=== PATIENT | male | born 1935 | race Caucasian/White ===

== ENCOUNTER 2016-07-18 19:09 | Emergency (ER) | payer MEDICARE, OTHER ==
[2015-02-11 07:43] VITALS: BMI 26.6
[~2016-07-18 19:09] MED LIST: ASPIRIN EC81 M1 PO; CARDURA4 MG PO; CATAPRES0.1 MG PO; COZAAR50 MG PO; HYDRALAZINE HCL25 MG PO; LANTUS INSULIN10 ML SC; LONITEN2.5 MG PO; METOLAZONE2.5 MG PO; NORVASC10 MG PO; NOVOLOG100 U/M1 SC; OCUVITE TABLET1 TA1 PO; SYNTHROID50 MCG PO; TRICOR145 MG PO; TUMS500 MG PO
[2016-07-18 20:38] LABS: BASOPHILS 0.1 % (0.0-2.0); HEMOGLOBIN 10.4 g/dL (13.5-17.5); IMMATURE GRANULOCYTES 0.2 % (0-5); LYMPHOCYTES 4.5 % (15-50); MCH 25.4 pg (26.0-34.0); MCHC 30.6 g/dL (31.0-37.0); MCV 83.1 fL (80.0-100.0); MEAN PLATELET VOLUME 9.5 fL (7.4-10.4); MONOCYTES 10.6 % (2-11); NEUTROPHILS 83.6 % (40-80); PLATELET COUNT 281 10x3/uL (130-400); RBC 4.09 10x6/uL (4.20-6.10); RDW 17.1 % (11.5-14.5); WBC 9.8 10x3/uL (4.8-10.8)
[2016-07-18 21:06] LABS: ALBUMIN 2.4 g/dL (3.4-5.0); ANION GAP 15.9 mmol/L (8-16); BILIRUBIN - TOTAL 1.19 mg/dL (0.2-1.3); CALCIUM 8.3 mg/dL (8.5-10.1); CARBON DIOXIDE 23.7 mmol/L (21.0-32.0); CREATININE - SERUM 5.2 mg/dL (0.6-1.3); POTASSIUM - SERUM 3.6 mmol/L (3.5-5.1)
== END 2016-07-18 21:40 | disposition home or self-care (01) ==
LOC: D.ER 19:09
PROVIDERS: Nurse Practitioner Acute Care
DX: K52.9 Noninfective gastroenteritis and colitis, unspecified (principal); I12.0 Hypertensive chronic kidney disease with stage 5 chronic kidney disease or end stage renal disease; N18.5 Chronic kidney disease, stage 5; I25.10 Atherosclerotic heart disease of native coronary artery without angina pectoris; I45.10 Unspecified right bundle-branch block

== ENCOUNTER 2016-07-28 02:01 | Emergency (ER) | payer MEDICARE ==
[2015-02-11 07:43] VITALS: BMI 26.6
== END 2016-07-28 03:59 | disposition home or self-care (01) ==
LOC: D.ER 02:01
DX: S80.12XA Contusion of left lower leg, initial encounter (principal); X58.XXXA Exposure to other specified factors, initial encounter; Y93.89 Activity, other specified; Y92.89 Other specified places as the place of occurrence of the external cause; N40.0 Benign prostatic hyperplasia without lower urinary tract symptoms; I25.10 Atherosclerotic heart disease of native coronary artery without angina pectoris; E78.5 Hyperlipidemia, unspecified; E03.9 Hypothyroidism, unspecified; I12.0 Hypertensive chronic kidney disease with stage 5 chronic kidney disease or end stage renal disease; N18.5 Chronic kidney disease, stage 5

== ENCOUNTER 2016-07-31 08:08 | Outpatient (CLI) | payer MEDICARE ==
[~2016-07-31] VITALS: Ht 172.7 cm; Wt 79.2 kg
--- NOTE | ~2016-07-31 | HEMODYNAMI ---
PATIENT:DEVAUGHN LLAMAS MEDICAL RECORD: [id number] : 33 LOCATION:[facility] ADMISSION DATE: 07/31/16 Generatedon:07/31/201610:57 Patient name: DEVAUGHN LLAMAS Patient #: [id number] SSN: [id number] : 1935 Date of study: 07/31/2016 Page: Of Hemodynamic Procedure Report Patient Data Patient Demographics Procedure consent was obtained First Name: DEVAUGHN Gender: Male Last Name: MURIEL : 1935 [facility] Initial: R Age: 80 year(s) Patient #: [id number] Race: SSN: [id number] Additional ID: [id number] Contact details Address: [address] [place] [address] [address] State: [place] City: [place] Zip code: [address] Admission Admission Data Admission Date: 07/31/2016 Admission Time: 8:08 Arrival Date: 07/31/2016 Arrival Time: 0:00 Admit Source: Other Height (in.): 60 BSA: 1.71 (m2) Height (cm.): 152.4 BMI: 31.64 (kg/m2) Weight (lbs.): 162 Weight (kg.): 73.48 Lab Results Lab Result Date: 07/31/2016 Lab Result Time: 0:00 Biochemistry Name Units Result Min Max BUN mg/dl 76 --(----)-* 7 18 Creatinine mg/dl 5.5 --(----)-* 0.6 1.3 CBC Name Units Result Min Max Hemoglobin g/dl 12.9 -*(----)-- 13.5 17.5 Procedure Procedure Types Cath Procedure Diagnostic Procedure C [facility] w/Coronaries PCI Procedure Coronary Stent Initial Miscellaneous Procedures Moderate Sedation up to 15 minutes Procedure Description Procedure Date Procedure Date: 07/31/2016 Procedure Start Time: 10:36 Procedure End Time: 10:57 Procedure Staff Name Function Golden Dunn MD Performing Physician Tiffany Rodriguez RT Scrub January Beck RT Monitor Va Astorga RN Nurse Procedure Data Cath Procedure Fluoroscopy Diagnostic fluoroscopy Total fluoroscopy Time: 4.1 time: 4.1 min min Diagnostic fluoroscopy Total fluoroscopy dose: 279 dose: 279 mGy mGy Contrast Material Contrast Material Type Amount (ml) Isovue 300 61 Entry Location Entry Primary Successful Side Size Upsize Upsize Entry Closure Succes sful Closure Location (Fr) 1 (Fr) 2 (Fr) Remarks Device Remarks Femoral Right 5 Fr 6 Fr Vascade artery Short Closure System Estimated blood loss: 10 ml Diagnostic catheters Device Type Used For End Catheter Placement Cordis 5Fr Pigtail Procedure Catheter (MP) Cordis 5Fr JL 4.0 Procedure Catheter (MP) Cordis 5Fr 3DRC Catheter Coronary (MP) Angiography Procedure Complications No complications Procedure Medications Medication Administration Route Dosage Oxygen NC 2 l/min Heparin Flush Bag added to field 2 bags (1000units/500ml NS) Lidocaine 2% added to field 20 Fentanyl I.V. 25 mcg Versed I.V. 0.5 mg Fentanyl I.V. 25 mcg Versed I.V. 0.5 mg Integrilin (Bolus I.V. 6.2 ml 2mg/ml) Heparin Bolus I.V. 4000 units Fentanyl I.V. 25 mcg Versed I.V. 0.5 mg Plavix P.O. 600 mg Hemodynamics Rest BSA: 1.71 (m2) HGB: 12.9 (g/dl) O2 Consumption: Estimated: 196.26 (ml/min) O2 Co nsumption indexed: Estimated:114.77 (ml/min/m) Heart Rate: 72 (bpm) Snapshots Pre Cath Intra NCS Post Cath Vital Signs Time Heart Resp SPO2 NIBP (mmHg) Rhythm Pain Sedation Rate (ipm) (%) Status Level (bpm) 10:19:45 73 18 100 193/87(153) NSR 0 (11) 10(A) , No pain 10:24:21 72 16 100 195/84(147) NSR 0 (11) 10(A) , No pain 10:28:49 76 16 100 184/89(148) NSR 0 (11) 9(A) , No pain 10:33:16 78 20 100 183/90(147) NSR 0 (11) 9(A) , No pain 10:37:44 78 18 100 188/90(140) NSR 0 (11) 9(A) , No pain 10:42:12 77 16 100 181/87(138) NSR 0 (11) 9(A) , No pain 10:46:41 78 16 100 189/88(147) NSR 0 (11) 9(A) , No pain 10:51:03 86 17 100 165/83(132) NSR 0 (11) 9(A) , No pain Medications Time Medication Route Dose Verified Delivered Reason Notes Effectiveness by by 10:20:04 Oxygen NC 2 Va Va used for l/min Astorga Astorga milk hauler RN 10:20:11 Heparin Flush added 2 Va Va used for Bag to bags Astorga Astorga procedure (1000units/500ml field RN RN NS) 10:20:20 Lidocaine 2% added 20ml Va Va used for to vial Astorga Astorga procedure field RN RN 10:25:05 Fentanyl I.V. 25 Va Va for sedation mcg Astorga Astorga RN RN 10:25:10 Versed I.V. 0.5 Va Va for sedation mg Astorga Astorga RN RN 10:36:50 Fentanyl I.V. 25 Va Va for sedation mcg Astorga Astorga RN RN 10:36:53 Versed I.V. 0.5 Va Va for sedation mg Astorga Astorga RN RN 10:46:03 Integrilin I.V. 6.2 Va Va for wasted (Bolus 2mg/ml) ml Astorga Astorga anticoagulation 3.8ml of RN RN integrilin bolus 10:46:13 Heparin Bolus I.V. 4000 Va Va for units Astorga Astorga anticoagulation RN RN 10:46:44 Fentanyl I.V. 25 Va Va for sedation mcg Astorga Astorga RN RN 10:46:47 Versed I.V. 0.5 Va Va for sedation mg Astorga Astorga RN RN 10:48:32 Plavix P.O. 600 Va Va for mg Astorga Astorga antiplatelet RN RN therapy Procedure Log Time Note 9:35:56 Tiffany Rodriguez RT(R) sent for patient. Start room use. 9:47:25 Informed consent obtained and on chart 9:47:28 Diagnostic Cath Status : Elective 9:48:02 Time tracking: Regular hours 9:48:06 Plan of Care:Hemodynamics will remain stable., Cardiac rhythm will remain stable., Comfort level will be maintained., Respiratory function will remain adequate., Patient/ family verbilizes understanding of procedure., Procedure tolerated without complication., Recovers from procedure without complications.. 9:50:17 Lab Result : Hemoglobin 12.9 g/dl 9:50:17 Lab Result : Creatinine 5.5 mg/dl 9:50:17 Lab Result : BUN 76 mg/dl 9:52:19 Patient received from Outpatients to [facility] 3 Alert and oriented. Tansferred to table in Supine position. 9:52:51 H&P Date Dictated: 07/24/2016 Within 30 days and on chart., H&P Addendum completed by physician on day of procedure. (MUST COMPLETE FOR ALL OUTPATIENTS). 9:52:53 Pre-procedure instructions explained to patient. 9:52:56 Family in waiting room. 9:52:58 Patient NPO since Midnight. 9:53:06 Is the patient allergic to Iodine/contrast media? No. 9:53:11 Patient diabetic? Yes. 9:53:12 If diabetic: On Metformin? No 9:54:45 Admit Source: Other 9:55:02 Patient Height : 152.4 inches 9:55:32 Patient Weight : 73.48 lbs 9:56:21 Arrival Date: 07/31/2016 12:00:00 AM 10:13:19 Warm blankets applied, and kranthi hugger turned on for patient comfort. 10:13:38 ACC The patient was administered the following blood thiners within the last 24 hours: ACCAspirin 10:13:45 Snore? Yes 10:13:46 Sleep apnea? Yes 10:13:50 Deviated septum? No 10:13:58 Dentures? Yes tight 10:14:06 IV patent on arrival in right hand with 0.9% NaCl at KVO. 10:14:12 Lab results completed and on chart. 10:14:15 Right groin area was prepped with chlora-prep and draped in sterile fashion 10:14:20 Sharps counted by scrub and verified by R.N. 10:14:32 ECG and BP/O2 sat monitors applied to patient. 10:18:26 Vital chart was started 10:18:27 Baseline sample Acquired. 10:18:32 Rhythm: sinus rhythm 10:18:34 Full Disclosure recording started 10:20:04 Oxygen 2 l/min NC was given by Va Astorga RN; used for procedure; 10:20:11 Heparin Flush Bag (1000units/500ml NS) 2 bags added to field was given by Va Astorga RN; used for procedure; 10:20:20 Lidocaine 2% 20ml vial added to field was given by Va Astorga RN; used for procedure; 10:20:29 Use device set Radial Dx 10:20:31 Acist Syringe opened to sterile field. 10:20:31 Medline Cath Pack opened to sterile field. 10:20:32 Bag Decanter opened to sterile field. 10:21:09 St Sy 260cm J .035 wire opened to sterile field. 10:21:10 Acist Hand Control opened to sterile field. 10:21:11 Acist Manifold opened to sterile field. 10:21:12 Tegaderm 4 x 4 opened to sterile field. 10:21:20 Use device set Multipack Set 10:21:22 Diagnostic Infinity 5Fr Multipack catheter opened to sterile field. 10:21:28 Terumo 5Fr [place] Sheath opened to sterile field. 10:21:54 Physician paged 10:22:08 Physician arrived 10::09 --------ALL STOP TIME OUT------ 10:22:10 Final Timeout: patient, procedure, and site verified with staff and physician. All members of the team are in agreement. 10:22:12 Right groin site verified by team. 10:22:16 Physical assessment completed. ASA score P 2 - A patient with mild systemic disease as per Golden Dunn MD. 10:22:20 Sedation plan: IV Moderate Sedation Versed, Fentanyl 10:25:05 Fentanyl 25 mcg I.V. was given by Va Astorga RN; for sedation; 10:25:10 Versed 0.5 mg I.V. was given by Va Astorga RN; for sedation; 10:29:32 Zero performed for pressure channel P1 10:29:41 Zero performed for pressure channel P1 10::58 Zero performed for pressure channel P1 10:34:52 Procedure started. 10:36:18 Local anesthetic to right femoral artery with Lidocaine 2% by Golden Dunn MD.INITIAL ACCESS ONLY 10:36:50 Fentanyl 25 mcg I.V. was given by Va Astorga RN; for sedation; 10:36:53 Versed 0.5 mg I.V. was given by Va Astorga RN; for sedation; 10:36:59 A 5 Fr sheath was inserted into the Right Femoral artery 10:39:08 A Cordis 5Fr Pigtail Catheter (MP) was advanced over the wire and used for Procedure. 10:39:38 no LV cant cross valve 10:39:49 A Cordis 5Fr JL 4.0 Catheter (MP) was advanced over the wire and used for Procedure. 10:39:58 LCA angiography performed. 10:41:01 Catheter removed. 10:41:31 A Cordis 5Fr 3DRC Catheter (MP) was advanced over the wire and used for Coronary Angiography. 10:41:36 RCA angiography performed. 10:43:31 Catheter removed. 10:46:03 Integrilin (Bolus 2mg/ml) 6.2 ml I.V. was given by Va Astorga RN; for anticoagulation; wasted 3.8ml of integrilin bolus 10:46:13 Heparin Bolus 4000 units I.V. was given by Va Astorga RN; for anticoagulation; 10:46:14 Medtronic Launcher 6Fr AR 2.0 guide catheter opened to sterile field. 10:46:15 Merit BasixCompak Inflation Kit opened to sterile field. 10:46:15 Terumo 6Fr [place] Sheath opened to sterile field. 10:46:30 Sheath upsized to a 6 Fr Short. 10:46:42 6 Fr AR2 guide catheter was inserted over the wire 10:46:44 Fentanyl 25 mcg I.V. was given by Va Astorga RN; for sedation; 10:46:47 Versed 0.5 mg I.V. was given by Va Astorga RN; for sedation; 10:46:48 Whis[er wire advanced. 10:47:34 Inflation Number: 1 A Medtronic Integrity 3.5 X 15 stent was prepped and advanced across the Mid RCA. The stent was deployed at 13 KIRAN for 0:10 (min:sec). 10:48:27 Vascade 6/7 Fr Closure Device opened to sterile field. 10:48:32 Plavix 600 mg P.O. was given by Va Astorga RN; for antiplatelet therapy; 10:49:33 Wire removed. 10:49:33 Guide catheter removed. 10:49:47 Sheath removed intact; hemostasis achieved with Vascade Closure System to the Right Femoral artery. 10:49:49 Procedure ended.(Physican Out) 10:50:21 Fluoroscopy time 04.10 minutes. 10:50:26 Fluoroscopy dose: 279 mGy 10:50:26 Flurop Dose total: 279 10:50:31 Contrast amount:Isovue 300 61ml. 10:50:34 Sharps counted by scrub and verified by R.N. 10:50:40 Insertion/operative site no bleeding no hematoma. 10:50:42 Post Procedure Pulses reassessed and unchanged 10:50:45 Post procedure rhythm: unchanged. 10:50:48 Estimated blood loss: 10 ml 10:50:51 Post procedure instruction explained to patient.Patient verbalizes understanding. 10:51:32 Procedure type changed to Cath procedure, Diagnostic procedure, LHC, LHC w/Coronaries, PCI procedure, Coronary Stent Initial, Miscellaneous Procedures, Moderate Sedation up to 15 minutes 10:51:34 Procedure and supply charges have been captured, reviewed, submitted and are correct. 10:51:39 Procedure Complication : No complications 10:51:43 Vital chart was stopped 10:51:45 See physician's report for complete and final results. 10:57:00 Patient transfered to Outpatients with Stretcher. 10:57:02 Procedure ended. 10:57:02 Full Disclosure recording stopped 10:57:05 End room use (Document Last) 10:57:23 ACC-PCI Only Patient was given prescriptions, or instructed by Golden Dunn MD to start/continue the following medications upon discharge: Plavix Intervention Summary Intervention Notes Time ActionType Lesion and Equipment Action# Pressure Duration Attributes Used 10:47:34 Place stent Mid RCA Medtronic 1 13 00:10 Integrity 3.5 X 15 stent Device Usage Item Name Manufacture Quantity Catalog Hospital Part Current Minima l Lot# / Number Charge Number Stock Stock Serial# Code Acist Acist 1 00935 569679 182364 429506 20 [employer] Inc Medline Cardinal 1 [id number] 919653 39996 114239 5 Cath Pack Health Bag Microtek 1 2001S 155712 54894 531919 [address] Sy 1 683624 241381 424640 648698 30 260cm J .035 wire Acist Hand Acist 1 60578 233098 304364 590245 5 Control Medical Systems Inc Acist Acist 1 95247 410993 889024 929340 5 Manifold Medical Systems Inc Tegaderm 4 3M 1 1626W 047709 851088 736751 5 x 4 Diagnostic Cardinal 1 [id number] 900415 29118 884387 30 Infinity Health 5Fr Multipack catheter Terumo 5Fr Terumo 1 JSW141 430150 960326 423373 40 [place] Sheath Cordis 5Fr Cardinal 1 620776 5 Pigtail Health Catheter (MP) Cordis 5Fr Cardinal 1 364658 5 JL 4.0 Health Catheter (MP) Cordis 5Fr Cardinal 1 836528 5 3DRC Health Catheter (MP) Medtronic Medtronic 1 [id number] 154423 85855 538665 1 Launcher 6Fr AR 2.0 guide catheter Merit Merit 1 [id number] 548727 675120 540667 15 Pixoto, Inc. Medical Inflation Kit Terumo 6Fr Terumo 1 NCR348 279075 306487 677497 40 [place] Sheath Medtronic Medtronic 1 [id number] 594677 113923 658983 7 [id number] Integrity 3.5 X 15 stent Vascade 10/31 Cardiva 1 [id number] 469863 997541 097302 5 Fr Closure Medical, Device Inc. Signature Audit Terry Stage Time Signature Unsigned Intra-Procedure 07/31/2016 January Beck 10:57:54 AM RT(R) Signatures Monitor : January Beck Signature : RT Date : Time : [facility] [address] [place] [address]
[2016-07-31 08:44] VITALS: BP 188/80; BMI 24.3
[2016-07-31 09:22] LABS: BASOPHILS 0.2 % (0.0-2.0); EOSINOPHILS 1.4 % (0-7); HEMATOCRIT 41.8 % (42.0-54.0); HEMOGLOBIN 12.9 g/dL (13.5-17.5); IMMATURE GRANULOCYTES 0.4 % (0-5); LYMPHOCYTES 5.1 % (15-50); MCHC 30.9 g/dL (31.0-37.0); MEAN PLATELET VOLUME 9.9 fL (7.4-10.4); MONOCYTES 9.7 % (2-11); NEUTROPHILS 83.2 % (40-80); PLATELET COUNT 237 10x3/uL (130-400); RBC 5.16 10x6/uL (4.20-6.10); RDW 18.5 % (11.5-14.5); WBC 5.7 10x3/uL (4.8-10.8)
[2016-07-31 09:31] LABS: ANION GAP 19.2 mmol/L (8-16); CALCIUM 8.4 mg/dL (8.5-10.1); CARBON DIOXIDE 20.1 mmol/L (21.0-32.0); CREATININE - SERUM 5.5 mg/dL (0.6-1.3); POTASSIUM - SERUM 4.3 mmol/L (3.5-5.1)
[2016-07-31] MEDS ORDERED: PLAVIX75 MG PO (11:15)
--- NOTE | 2016-07-31 11:30 | NUR ---
1130 BP 83/38 HR 48 WITH C/O OF NAUSEA 4 MG ZOFRAN GIVEN IV IV FLUIDS OPEN 1200 BP 84/40 HR 66 FEMSTOP TO R/GROIN REMAINS IN PLACE WITH HEMATOMA MARKED.
--- NOTE | 2016-07-31 12:19 | NUR ---
BP 142/60 HR 71 CHEST PAIN DENIED NAUSEA DENIED. PRESSURE RELEASED FROM FEMSTOP WITH NO BLEEDING NOTED.
--- NOTE | 2016-07-31 13:00 | NUR ---
1300 R/GROIN CDI WITH HEMATOMA MARKED. VSS WITH CHEST PAIN DENIED. PATIENT INSTRUCTED TO KEEP HEAD FLAT ON PILLOW WITH RLE STRAIGHT 1330 VSS WITH PATIENT RESTING QUIETLY NO DISTRESS NOTED. FAMILY AT SIDE
--- NOTE | 2016-07-31 14:30 | NUR ---
1430 NO CHANGE IN ASSESSMENT VSS
--- NOTE | 2016-07-31 15:23 | NUR ---
FEMSTOP REMOVED WITH DRESSING APPLIED. NO BLEEDING NO HEMATOMA NOTED CHEST PAIN IS DENIED. REPOSITIONED TO SITTING WITH HOB UP 45 DEGREES SANDWICH AT BEDSIDE. WAITING FOR TRANSPORT TO ADMIT
--- NOTE | 2016-07-31 15:30 | NUR ---
RECEIVED PT FROM MIXING SUPERVISOR VIA STRETCHER AAOX4 IN STABLE CONDITION RT GROIN WITH DRSG C/D/I WITH RESOLVING HEMATOMA NO BRUISING NOTED AREA MARKED NOTED RESOLVING PT DENIES ANY NEEDS OR DISCOMFORT
--- NOTE | 2016-07-31 15:42 | NUR ---
REPORT CALLED TO [place] ON MED 2 PATIENT TRANSPORTED VIA STRETCHER TO ROOM 2047
[2016-07-31 18:03] VITALS: BP 159/59; Ht 172.7 cm; Wt 79.2 kg
--- NOTE | 2016-07-31 19:15 | NUR ---
INITIAL ROUNDS MADE. PT LYING IN BED WATCHING TV WITH FAMILY IN ROOM. RIGHT GROIN STABLE. VSS. DENIES NEEDS OR C/O AT THIS TIME. WILL CONT TO MONITOR. CALL LIGHT IN REACH.
[2016-07-31 20:00] VITALS: BP 189/72
--- NOTE | 2016-07-31 23:28 | NUR ---
BODY WORKER AT BEDSIDE FOR VS. NEEDS ADDRESSED AT THIS TIME. CALL LIGHT IN REACH. WILL CONT TO MONITOR.
[2016-08-01] VITALS: BP 142/64
[2016-08-01 04:00] VITALS: BP 170/66
--- NOTE | 2016-08-01 06:39 | NUR ---
SITTING UP IN BED DRINKING COFFEE. DENIES NEEDS. CONT TO MONITOR.
[2016-08-01 08:05] VITALS: BP 176/74
--- NOTE | 2016-08-01 09:16 | NUR ---
TELEMETRY SR. RIGHT GROIN STABLE. AT BS. WILL CONT. PLAN OF CARE.
--- NOTE | 2016-08-01 10:13 | NUR ---
IV AND TELEMETRY DCD. DC PLANS GIVEN. UNDERSTANDING VOICED. ESCORTED TO CAR BY W/C.
--- NOTE | 2016-08-06 10:08 | DS ---
PATIENT:DEVAUGHN LLAMAS :[birth year] MEDICAL RECORD: [id number] DISCHARGE SUMMARY ADMISSION DATE: 07/31/16 DISCHARGE DATE: 08/01/16 DISCHARGE DIAGNOSES: 1. Angina. 2. Percutaneous transluminal coronary angioplasty stent right coronary artery this admission. 3. Hypertension. 4. Hyperlipidemia. 5. Renal insufficiency, chronic. HOSPITAL COURSE: Mr. Llamas presented with anginal symptomatology, underwent cardiac catheterization revealing single vessel disease to the RCA. He had no further anginal symptomatology; however, he had a minor groin bleed. He stayed overnight because of the groin bleed and groin would stabilize next morning, hemoglobin was stable. Creatinine was stable and discharged home with the addition of Plavix to his medical regimen. He will follow up with [facility] in 1 month. TRANSINT:[id number] Voice Confirmation ID: [id number] DOCUMENT ID: [id number] RENE FREIRE MD at 1008 CC: [id number] DICTATION DATE: 08/01/16937 HR MANAGER: 08/02/16 0009 DEP CLI 08/01/16 [place] [id number] [place] [address]
--- NOTE | 2016-08-06 10:08 | OP ---
PATIENT NAME: DEVAUGHN LLAMAS MEDICAL RECORD: [id number] :33 LOCATION:D.CAT ADMISSION DATE: SURGEON: RENE FREIRE MD DATE OF OPERATION: 07/31/2016 PROCEDURES: 1. PTCA stent RCA. 2. Left heart catheterization. 3. Selective coronary angiography. 4. Left ventriculogram. INDICATION: Angina and coronary artery disease. PROCEDURE: After informed consent was obtained and after detailed explanation of risks, benefits as well as alternative therapies, the patient elected to proceed with angiogram and ____ angioplasty. The right femoral area was prepped and draped in normal sterile fashion. Right femoral artery was cannulated via modified Seldinger technique with placement of 6-Nigerien sheath. All catheters exchanged through this sheath. FINDINGS: Left ventriculogram was not performed secondary to dye conservation. SELECTIVE CORONARY ANGIOGRAPHY: 1. Left main showed no significant angiographic disease. 2. Left anterior descending has moderate irregularities, but no flow-limiting stenosis. 3. The left circumflex shows moderate irregularities, but no flow-limiting stenosis. 4. Right coronary has a 70% to 75% stenosis in the mid vessel, which correlates with the perfusion defect on nuclear stress testing. PTCA STENT OF THE RIGHT CORONARY: The stent used was 3.5 x 15 mm Integrity. Result was 0% residual stenosis. OVERALL IMPRESSION: Successful percutaneous transluminal coronary angioplasty stent of the right coronary artery going from 75% initial stenosis to 0% residual. TRANSINT:[id number] Voice Confirmation ID: [id number] DOCUMENT ID: [id number] RENE FREIRE MD at 1008 CC: CAROL ACEVEDO MD [id number] DICTATION DATE: 07/31/16 1052 COMPANION CAREGIVER: 07/31/16 1246 DEP CLI 08/01/16 [place] [id number]
== END 2016-08-01 10:14 | disposition home or self-care (01) ==
LOC: D.CATH 08:08 → D.M2 16:15 → D.CATH 08-01 10:14
PROVIDERS: Internal Medicine Interventional Cardiology
DX: I25.119 Atherosclerotic heart disease of native coronary artery with unspecified angina pectoris (principal); I12.9 Hypertensive chronic kidney disease with stage 1 through stage 4 chronic kidney disease, or unspecified chronic kidney disease; N18.9 Chronic kidney disease, unspecified; E78.5 Hyperlipidemia, unspecified

== ENCOUNTER → 2016-08-03 12:50 | Outpatient (CLI) | payer MEDICARE ==
[2016-07-31 18:03] VITALS: BMI 31.2
[~2016-08-03 12:50] MED LIST changes: +NYSTATIN ORAL SU5 ML PO; +PLAVIX75 MG PO; +ROCEPHIN 1 GM/D51 G1 IV
== END | disposition home or self-care (01) ==
LOC: D.US 12:50
DX: M79.601 Pain in right arm (principal); R60.0 Localized edema

== ENCOUNTER 2016-08-10 17:07 | Inpatient (IN) | payer MEDICARE ==
[~2016-08-10] VITALS: Ht 172.7 cm; Wt 72.6 kg
[~2016-08-10 17:07] MED LIST changes: -NYSTATIN ORAL SU5 ML PO; -ROCEPHIN 1 GM/D51 G1 IV
[2016-08-10 17:50] LABS: APPEARANCE CLEAR (CLEAR); BILIRUBIN NEGATIVE (NEGATIVE); COLOR YELLOW (YELLOW); GLUCOSE NEGATIVE (NEGATIVE); KETONE NEGATIVE (NEGATIVE); LEUKOCYTE ESTERASE TRACE (NEGATIVE); NITRITE NEGATIVE (NEGATIVE); PROTEIN 2+ mg/dL (NEGATIVE); SPECIFIC GRAVITY 1.015 (1.005-1.020); UROBILINOGEN NORMAL (NORMAL)
[2016-08-10 17:52] LABS: BACTERIA FEW /hpf (NONE SEEN); EPITHELIAL CELLS 0-5 /hpf (0-5); WHITE CELLS - URINE 0-5 /hpf (0-5)
[2016-08-10 17:58] LABS: BASOPHILS 0.2 % (0.0-2.0); EOSINOPHILS 0.5 % (0-7); HEMATOCRIT 31.9 % (42.0-54.0); HEMOGLOBIN 9.7 g/dL (13.5-17.5); IMMATURE GRANULOCYTES 0.3 % (0-5); LYMPHOCYTES 4.2 % (15-50); MCH 23.9 pg (26.0-34.0); MCHC 30.4 g/dL (31.0-37.0); MCV 78.6 fL (80.0-100.0); MEAN PLATELET VOLUME 10.1 fL (7.4-10.4); MONOCYTES 10.3 % (2-11); NEUTROPHILS 84.5 % (40-80); RBC 4.06 10x6/uL (4.20-6.10); RDW 18.8 % (11.5-14.5); WBC 11.1 10x3/uL (4.8-10.8)
[2016-08-10 18:00] LABS: PLATELET COUNT 333 10x3/uL (130-400)
[2016-08-10 18:11] LABS: ALBUMIN 2.5 g/dL (3.4-5.0); ALKALINE PHOSPHATASE 81 U/L (46-116); ALT (SGPT) 27 U/L (10-68); BILIRUBIN - TOTAL 2.01 mg/dL (0.2-1.3); CALC OSMOLALITY 296 mosm/kg (275-300); CALCIUM 8.2 mg/dL (8.5-10.1); CARBON DIOXIDE 20.3 mmol/L (21.0-32.0); CHLORIDE - SERUM 104 mmol/L (98-107); CREATININE - SERUM 5.4 mg/dL (0.6-1.3); GLUCOSE 90 mg/dL (74-106); PROTEIN - SERUM 7.7 g/dL (6.4-8.2); SODIUM 139 mmol/L (136-145); UREA NITROGEN 67 mg/dL (7-18); eGFR NON AFRICAN AMERICAN 11 mL/min (90-120)
[2016-08-10 18:13] LABS: POTASSIUM - SERUM 4.6 mmol/L (3.5-5.1)
[2016-08-10 18:26] LABS: CREATINE KINASE 88 UL (21-232); TROPONIN-I 0.032 ng/mL (0.000-0.060)
[2016-08-10 18:36] LABS: APTT 35.7 SECONDS (22.8-39.4); INR 1.21 (0.85-1.17); PROTIME 15.2 SECONDS (11.6-15.0)
[2016-08-11] VITALS (7 sets, daily range): BP systolic 154–182; BP diastolic 65–85; Ht 172.7 cm; Wt 72.6 kg
[2016-08-11 06:27] LABS: BASOPHILS 0.1 % (0.0-2.0); EOSINOPHILS 0.1 % (0-7); HEMATOCRIT 25.7 % (42.0-54.0); IMMATURE GRANULOCYTES 0.3 % (0-5); LYMPHOCYTES 6.4 % (15-50); MCH 23.7 pg (26.0-34.0); MCHC 29.6 g/dL (31.0-37.0); MCV 80.1 fL (80.0-100.0); MEAN PLATELET VOLUME 9.8 fL (7.4-10.4); MONOCYTES 7.5 % (2-11); NEUTROPHILS 85.6 % (40-80); RDW 18.7 % (11.5-14.5); WBC 9.6 10x3/uL (4.8-10.8)
[2016-08-11 06:31] LABS: HEMOGLOBIN 7.6 g/dL (13.5-17.5); PLATELET COUNT 264 10x3/uL (130-400); RBC 3.21 10x6/uL (4.20-6.10)
[2016-08-11 06:58] LABS: ALBUMIN 1.9 g/dL (3.4-5.0); CALCIUM 7.4 mg/dL (8.5-10.1); CARBON DIOXIDE 16.7 mmol/L (21.0-32.0); CREATININE - SERUM 5.4 mg/dL (0.6-1.3); MAGNESIUM - SERUM 1.8 mg/dL (1.8-2.4); PHOSPHOROUS 5.1 mg/dL (2.5-4.9)
[2016-08-11 06:59] LABS: ANION GAP 19.1 mmol/L (8-16); POTASSIUM - SERUM 3.8 mmol/L (3.5-5.1); PROTEIN - SERUM 5.5 g/dL (6.4-8.2)
--- NOTE | 2016-08-11 07:00 | NUR ---
RECEIVED REPORT. ASSUMED CARE OF PATIENT. CALL LIGHT WITHIN REACH. PATIENTS SPOUSE AT BEDSIDE. WHILE AT BEDSIDE, DR. FRYE HERE FOR AM ROUNDS. INFORMED OF PATIENTS H&H. PATIENT DENIES ANY NEEDS AT THIS TIME. NO DISTRESS. RESP EVEN AND UNLABORED.
--- NOTE | 2016-08-11 08:10 | NUR ---
BLOOD CONSENTS SIGNED AND ON CHART.
--- NOTE | 2016-08-11 11:01 | NUR ---
BLOOD TRANSFUSION INITIATED. TOLERATING RECEIVING BLOOD WELL. NO DISTRESS.
--- NOTE | 2016-08-11 14:44 | NUR ---
BLOOD TRANSFUSION COMPLETE AT THIS TIME. TOLERATED INFUSION WELL. NO S/S REACTIONS NOTED. ULTRASOUND IS NOW AT BEDSIDE FOR GALLBLADDER ULTRASOUND. CALL LIGHT WITHIN REACH. IV FLUIDS INFUSING ORDERED.
--- NOTE | 2016-08-11 17:19 | NUR ---
FSBS 214. PATIENTS INSULIN PUMP IS OFF AND PATIENT DOES NOT HAVE A SLIDING SCALE ORDERED, PAGED AT THIS TIME FOR ORDERS.
--- NOTE | 2016-08-11 17:43 | NUR ---
RECEIVED RETURN CALL FROM DR. FRYE AND DR. FRYE GAVE ORDERS TO TURN THE INSULIN PUMP BACK ON. PATIENT AND HIS ACKNOWLEDGED THE NEW ORDERS AND HOOKED INSULIN PUMP BACK UP TO PATIENT.
--- NOTE | 2016-08-11 19:30 | NUR ---
ASSESSMENT COMPLETE, UP WITH ASSIST, TIANA WELL. QLERT AND ORIENTED X3, O2 @ 2L NC IN PLACE, NS INFUSING W/O DIFF VIA PUMP AT 75CC/HR TO RT FA WITH NO R/S NOTED AT SITE.FAMILY MEMBER/SITTER AT BEDSIDE FOR NIGHT. HOB UP SR UP X2, C/L IN REACH. CONTINUE TO MONITOR.
[2016-08-12 00:37] VITALS: BP 140/62
[2016-08-12 04:23] VITALS: BP 141/59
[2016-08-12 05:08] LABS: BASOPHILS 0.2 % (0.0-2.0); EOSINOPHILS 1.1 % (0-7); HEMATOCRIT 29.6 % (42.0-54.0); IMMATURE GRANULOCYTES 0.5 % (0-5); LYMPHOCYTES 6.3 % (15-50); MCH 25.5 pg (26.0-34.0); MCHC 31.4 g/dL (31.0-37.0); MCV 81.1 fL (80.0-100.0); MEAN PLATELET VOLUME 9.7 fL (7.4-10.4); NEUTROPHILS 86.9 % (40-80); PLATELET COUNT 244 10x3/uL (130-400); RBC 3.65 10x6/uL (4.20-6.10); RDW 18.9 % (11.5-14.5)
[2016-08-12 05:26] LABS: HEMOGLOBIN 9.3 g/dL (13.5-17.5); WBC 6.6 10x3/uL (4.8-10.8)
[2016-08-12 05:52] LABS: ALBUMIN 1.8 g/dL (3.4-5.0); ANION GAP 17.3 mmol/L (8-16); BILIRUBIN - DIRECT 0.73 mg/dL (0.00-0.30); BILIRUBIN - INDIRECT 0.43 mg/dL (0.00-1.00); BILIRUBIN - TOTAL 1.16 mg/dL (0.2-1.3); CALCIUM 7.4 mg/dL (8.5-10.1); CARBON DIOXIDE 18.3 mmol/L (21.0-32.0); CREATININE - SERUM 5.4 mg/dL (0.6-1.3); PHOSPHOROUS 4.5 mg/dL (2.5-4.9); POTASSIUM - SERUM 3.6 mmol/L (3.5-5.1)
--- NOTE | 2016-08-12 07:00 | NUR ---
RECEIVED REPORT. ASSUMED CARE OF PATIENT. PATIENT WITH EYES OPEN, ATTENTION TOWARD TELEVISION THIS AM. MALE VISITOR AT BEDSIDE. CALL LIGHT WITHIN REACH. DENIES NEEDS. STATED HE SLEPT WELL. NO DISTRESS.
[2016-08-12 09:00] VITALS: BP 148/67
--- NOTE | 2016-08-12 11:32 | NUR ---
FSBS 171. PATIENT HAS INSULIN PUMP ADMINISTERING INSULIN. NO DISTRESS. CALL LIGHT WITHIN REACH.
[2016-08-12 16:00] VITALS: BP 123/63
--- NOTE | 2016-08-12 16:00 | NUR ---
FSBS 177. PATIENT HAS INSULIN PUMP. NO DISTRESS. CALL LIGHT WITHIN REACH.
--- NOTE | 2016-08-12 17:30 | NUR ---
ASSISTED IN PULLING PATIENT UP IN BED. CALL LIGHT WITHIN REACH. AND NEPHEW AT BEDSIDE. NO DISTRESS. DENIES NEEDS AT THIS TIME.
--- NOTE | 2016-08-12 19:30 | NUR ---
AWAKE, ALERT, LYING SUPINE IN BED WITH HOB UP SR UP X2, C/L IN REACH. TV ON, VOICES NO C/O PAIN OR DISCOMFORT AT THIS TIME. CONTINUE TO MONITOR.
[2016-08-12 20:00] VITALS: BP 147/73
[2016-08-13 04:00] VITALS: BP 132/59
[2016-08-13 05:44] LABS: BASOPHILS 0.2 % (0.0-2.0); EOSINOPHILS 2.2 % (0-7); HEMATOCRIT 28.8 % (42.0-54.0); IMMATURE GRANULOCYTES 0.5 % (0-5); LYMPHOCYTES 5.2 % (15-50); MCH 25.1 pg (26.0-34.0); MCHC 31.3 g/dL (31.0-37.0); MCV 80.2 fL (80.0-100.0); MEAN PLATELET VOLUME 10.2 fL (7.4-10.4); MONOCYTES 7.1 % (2-11); NEUTROPHILS 84.8 % (40-80); PLATELET COUNT 262 10x3/uL (130-400); RBC 3.59 10x6/uL (4.20-6.10); RDW 19.2 % (11.5-14.5); WBC 6.4 10x3/uL (4.8-10.8)
[2016-08-13 06:12] LABS: CALCIUM 7.6 mg/dL (8.5-10.1); CARBON DIOXIDE 17.5 mmol/L (21.0-32.0); CREATININE - SERUM 5.5 mg/dL (0.6-1.3); MAGNESIUM - SERUM 1.8 mg/dL (1.8-2.4); PHOSPHOROUS 4.4 mg/dL (2.5-4.9); POTASSIUM - SERUM 3.5 mmol/L (3.5-5.1)
[2016-08-13 08:00] VITALS: BP 147/69
--- NOTE | 2016-08-13 08:00 | NUR ---
AM ROUNDING WITH PATIENT DENYING NEEDS AT PRESENT TIME. MALE MEMBER IS AT BEDSIDE. ON ROOM AIR AT PRESENT TIME. RIGHT WRIST SEEN WITH NS INFUSING AT 30CC/HR WITHOUT PROBLEMS. LEFT AVF SEEN ALONG WITH DRY INTACT DRESSING TO LEFT OUT FOREARM. PATIENT REPORTS THAT HE HAS AN INSULIN PUMP. WILL CONTINUE TO MONITOR.
--- NOTE | 2016-08-13 10:06 | NUR ---
RATIONALE FOR SCD'S EXPLAINED. REFUSED SCD'S.
--- NOTE | 2016-08-13 10:28 | NUR ---
Rehab Note- Acute Rehab Prescreen order received. The patient has [facility] benefits and requires a PreAuth for acute rehab. Have spoken with Varsha at [facility], reference #[id number]. Awaiting approval for IRF stay at this time. Thank you for this referral! Марина Kenyon RN Clinical Liaison, [facility]
--- NOTE | 2016-08-13 11:09 | NUR ---
1105-FSBS IS 178. PATIENT HAS AN INSULIN PUMP AND HE IS CONCERED THAT IT NEEDS TO BE REFILLED AND HE IS STILL IN HOSPTIAL. ASKED THAT HE TURN THE PUMP OFF AND LET US COVER WITH HIS BLOOD SUGARS. HE IS ON NO SLIDING SCALE AT THIS TIME. CALL PLACED TO DR FRYE FOR ORDERS. 1112-SPOKE WITH MOON AT DR FRYE. NEW ORDERS RECEIVED.
[2016-08-13 12:00] VITALS: BP 147/60
--- NOTE | 2016-08-13 13:57 | HP ---
PATIENT: DEVAUGHN LLAMAS MEDICAL RECORD: [id number] ACCOUNT: [id number] LOCATION:[address] : 34 ADMISSION DATE: 08/10/16 HISTORY AND PHYSICAL EXAMINATION REASON FOR ADMISSION: Fever and malaise. HISTORY OF PRESENT ILLNESS: The patient is an 80-year-old male with history of stage V renal insufficiency. The patient had a cardiac cath and a stent placed approximately a week ago at this institution. He felt tired since that time. He presented to my office yesterday because of complaint of bilateral ear pain. While in the office, he became syncopal and fainted. He was observed in the office, stat blood sugar was 79. His insulin pump was suspended, he was observed for an hour and a half. The patient deferred admission at that time improved and went home. He had previous syncopal episodes like this multiple times in the past and yet has been undiagnosed. He developed onset of chills and fever late last night. He presented to the Emergency Room with 103 fever. He has now been admitted for further evaluation. Initial evaluation in the ED, was consistent with a viral syndrome. Cultures have been obtained. Denies cough, still has some bilateral ear discomfort that is minimal. Denies sore throat, diarrhea or melena. PAST MEDICAL HISTORY: Stage V chronic renal insufficiency, followed by Dr. Roa, volatile essential hypertension, diabetes mellitus on insulin pump, hypothyroidism, adverse reaction to general anesthesia with hypertension, osteoarthritis, hyperlipidemia, cholelithiasis, diverticulitis with former lower GI bleed, PTCA of the RCA 07/31/2016 with Integrity stent, postoperative hematoma in his right groin. PAST SURGICAL HISTORY: He has had fistula placed in his left arm. He has had left elbow surgery, cataract excision in the right eye, arthroscopy of his knee, cataract surgery on his left eye. FAMILY HISTORY: Parents are , had hypertension. SOCIAL HISTORY: He is . His lives independently. ALLERGIES: PENICILLIN. HOME MEDICATIONS: Plavix 75 mg daily, Apresoline 25 mg p.o. b.i.d., Norvasc 10 mg p.o. daily, Catapres 0.1 mg p.o. daily, minoxidil 2.5 mg p.o. b.i.d., Cozaar 50 mg p.o. b.i.d., Cardura 4 mg p.o. at h.s., TriCor 145 mg p.o. daily, aspirin 81 mg p.o. daily, hydrocodone 1 q.4 hours p.r.n. pain, Zaroxolyn 2.5 mg p.o. b.i.d., calcium carbonate ____ mg p.o. q.i.d., Synthroid 50 mcg p.o. daily, beta-carotene, Ocuvite vitamin 1 p.o. q. day, NovoLog insulin per insulin pump. REVIEW OF SYSTEMS: GENERAL: Fatigue with fever as mentioned. HEENT: No recent visual change, sinus congestion, or sore throat. He has had some discomfort in his upper neck, but no pharyngitis symptoms. RESPIRATORY: No SOB or cough. CARDIAC: No recent chest pain, edema or palpitations. GASTROINTESTINAL: No nausea, vomiting, change in stools or blood per rectum or melena. ENDOCRINE: Denies polyuria, polydipsia, heat or cold intolerance. HISTORY AND PHYSICAL [id number] DEVAUGHN LLAMAS NEUROLOGIC: No history of stroke, TIA, or vascular headaches. INTEGUMENT: No rash or itching. PSYCHIATRIC: Denies depress mood. MUSCULOSKELETAL: Chronic lumbago without sciatica. PHYSICAL EXAMINATION: VITAL SIGNS: Temperature is 100.3. Reportedly, 103 at home, heart rate 89 and regular, respirations 20, blood pressure 140/65 with a sat 99% on room air. GENERAL: The patient appears mildly ill. HEENT: Eyes are clear. Oropharynx unremarkable. NECK: Supple. Ears is clear. Throat: No erythema. CHEST: Clear without rales. HEART: Regular rate without MGR. PMI appropriate. ABDOMEN: Soft, nontender throughout. Bowel sounds are active. GENITOURINARY: He has fading superficial hematoma and ecchymosis in the right groin extending medial to the knee. There is no heat appreciated here. No bruit. No peripheral edema. NEUROLOGIC: Oriented to person, place, and time. Cranial nerves intact. Gait was not tested, but normal in the office yesterday. LABORATORY DATA: His influenza swab is negative. His white count is 11,000 with 84 polys. H&H is 9.7 and 31.9 with MCV of 78.6, BUN and creatinine are 67 and 5.4. His baseline potassium is 4.6, glucose is 90, calcium is 8.2. Bilirubin is 2.01. AST is 87. Urinalysis shows trace blood, 5-10 red cells, 0-5 white cells, few bacteria. INR is 1.21, PT time is 7.5. DIAGNOSTIC DATA: CT head showed no acute findings except for mild generalized atrophy. Chest x-ray showed no acute cardiopulmonary disease. ASSESSMENT: 1. Febrile illness, possibly viral, there has mild leukocytosis. 2. Recent percutaneous transluminal coronary angioplasty of the RCA with groin hematoma. 3. Anemia, possibly due to hematoma and chronic renal insufficiency. 4. Stage V chronic renal insufficiency. 5. Hypertension. 6. Near syncope, [id number]. 7. Known cholelithiasis, asymptomatic, benign prostatic hypertrophy, hyperlipidemia. PLAN: The patient is admitted and will be ____, we will hold antibiotics at this time unless the signs of bacterial infection are noted. We will transfuse, appropriately renal consult will be obtained. We will repeat gallbladder ultrasound, ____ mildly elevated, bilirubin to rule out acute cholecystitis. TRANSINT:[id number] Voice Confirmation ID: [id number] DOCUMENT ID: [id number] HISTORY AND PHYSICAL [id number] DEVAUGHN LLAMAS TIMOTHY MD at 1357 CC: [id number] DICTATION DATE: 08/11/16811 GRANULATOR OPERATOR: 08/11/16 1033 ADM IN [place] [id number] [place] [address]
--- NOTE | 2016-08-13 15:49 | NUR ---
1537-SODIUM BICARB TABLET GIVEN, PATIENT EATING REDUCED FAT ICE CREAM. AT BEDSIDE. AWAITING REHAB EVAL.
[2016-08-13 16:00] VITALS: BP 138/57
[2016-08-13 21:40] VITALS: BP 167/77
[2016-08-14 02:00] VITALS: BP 119/53
--- NOTE | 2016-08-14 03:03 | NUR ---
ACCORDING TO AMADA ELDRIDGE, PT DROPPED HIS URINAL AND HIT HIS ARM ON THE BED SIDE RAIL, CAUSING A SKIN TEAR TO HIS LEFT ARM JUST BELOW HIS ELBOW. 4X4 PLACED. CONTINUE TO MONITOR CLOSELY. CAREGIVER IN CHAIR.
--- NOTE | 2016-08-14 06:43 | NUR ---
PT AWAKE, ALERT, ORIENTED THIS AM. DENIES ANY NEEDS. CONTINUE TO MONITOR.
[2016-08-14 08:19] VITALS: BP 167/84
--- NOTE | 2016-08-14 08:51 | NUR ---
0732-AM ROUNDS. PT IS ALERT AND SITTING UP WITH THE HEAD OF THE BED AT A 45. IS AT THE BEDSIDE. PATIENT COMPLAINS OF A SORE THROAT AND 5-6 PAIN WHEN HE SWALLOWS. FINDINGS DOCUMENTED IN ASSESSMENT. WILL CONTINUE TO MONITOR. 0805-DR FRYE NOTIFIED ABOUT PATIENT'S SORE THROAT AND WHITE PATCHES IN MOUTH.
[2016-08-14 12:05] VITALS: BP 178/89
--- NOTE | 2016-08-14 13:15 | NUR ---
Nutrition follow-p: Visited with pt during meal rounds. Pt is happy with meals. Diet: ADA consistent CHO PO intake ~70% average of last 7 meals Labs reviewed +BM RDN following.
[2016-08-14 16:04] VITALS: BP 140/66
--- NOTE | 2016-08-14 16:10 | NUR ---
Rehab Note- OT Eval completed. Faxed at this time to May with [facility] @ [phone]. Awaiting PreAuth decision at this time for acute IRF stay. Марина Kenyon RN Clinical Liaison, [facility] Rehab/[place]
--- NOTE | 2016-08-14 16:12 | NUR ---
Patient Name: DEVAUGHN LLAMAS Admission Status: ER Accout number: [id number] Admission Date: 08-13-2016 : 1935 Admission Diagnosis: Attending: MARCY Current LOS: 1 Anticipated DC Date: Planned Disposition: Inpatient Rehab [facility] Discharge Planning Comments: * Is the patient Alert and Oriented? Yes 0 * How many steps to enter\exit or inside your home? NONE 0 * PCP DR. FRYE 0 * Pharmacy [facility] 0 * Preadmission Environment Home with Family 0 * ADLs Independent 0 * Equipment Cane CPAP Glucometer Rolling Walker 0 * Other Equipment NO MEDICAL EQUIPMENT PROVIDER PREFERENCE 0 * List name and contact numbers for known caregivers / representatives who currently or will assist patient after discharge: EMILIE LLAMAS, SPOUSE, 0 * Community resources currently utilized None 0 * Please name any agencies selected above. NONE 0 * Additional services required to return to the preadmission environment? Yes * Can the patient safely return to the preadmission environment? Yes 0 * Has this patient been hospitalized within the prior 30 days at any hospital? Yes 0 CM MET WITH PT AND SPOUSE IN ROOM TO DISCUSS DISCHARGE PLANNING AND NEEDS. PT REPORTS LIVING AT HOME INDEPENDENTLY WITH SPOUSE. PT REPORTS HAVING ALL NEEDED MEDICAL EQUIPMENT WITH NO PROVIDER PREFERENCE. PT HAS NO OUTSIDE SERVICES ASSISTING IN THE HOME. PT'S SPOUSE REPORTS HAVING [facility] POLICY FOR PT AND IS LOOKING INTO PERSONAL CARE OPTIONS. CM PROVIDED AGENCY LISTING FOR PERSONAL CARE. CM DISCUSSED AVAILABILITY OF HOME HEALTH, REHAB SERVICES AND MEDICAL EQUIPMENT. PT WOULD LIKE INPATIENT REHAB AT [place]. PT DOES NOT WANT TO CONSIDER RESIDENTIAL REHAB. CM PROVIDED HOME HEALTH LISTING. PT'S SPOUSE WILL PICK HIM UP FOR DISCHARGE HOME. IMPORTANT MESSAGE FROM MEDICARE PROVIDED AND EXPLAINED. CM WAITING INPATIENT REHAB PRESCREEN AND IF APPROPRIATE, INSURANCE AUTHORIZATION OR DENIAL FOR INPATIENT REHAB SERVICES. Web Services Architect: Maik Hung
--- NOTE | 2016-08-14 19:23 | NUR ---
HIRED FENCE SUPERVISOR AT BEDSIDE PER . PATIENT IS USING AN ELECTRIC SHAVER TO SHAVE HIMSELF. IV INFUSING TO RIGHT WRIST AREA (RESERVE LEFT ARM). DENIES ANY NEEDS AT PRESENT TIME. WILL COTNINUE TO MONITOR.
[2016-08-14 20:00] VITALS: BP 167/73
--- NOTE | 2016-08-14 21:30 | NUR ---
LYING IN BED RESTING WITH HOB ELEVATED 30 DEGREES. HS MEDS GIVEN PO WITHOUT DIFFICULTY. SEE ASSESSMENT FLOW SHEET FOR DETAILS. DENIES ANY NEEDS. WILL CONTINUE TO MONITOR.
[2016-08-15 04:00] VITALS: BP 207/66
--- NOTE | 2016-08-15 05:19 | NUR ---
AFTER GOING TO BATHROOM, COMMODE HAD A SMALL AMOUNT(TABLESPOON AMOUNT) OF BRIGHT RED BLOOD IN COMMODE. PATIENT SAID HE HAD A GI BLEED A MONTH AGO.
--- NOTE | 2016-08-15 07:22 | NUR ---
PT RESTING COMFORTABLY. NO SS OF DISTRESS AT THIS TIME. WILL CONTINUE TO MONITOR.
--- NOTE | 2016-08-15 08:04 | NUR ---
DR FRYE INTO SEE PATIENT. PATIENT ALERT/ORIENT X3. PATIENT HAS A SITTER IN ROOM WITH HIM. GLUCOSE LEVEL 172. PATIENT HAS JUST GOTTEN OFF INSULIN PUMP. REFUSING SLIDING SCALE INSULIN AT THIS TIME. REPORTED SOME BLOOD IN STOOL THIS AM. H AND H LAB ORDERED
[2016-08-15 08:21] VITALS: BP 137/56
--- NOTE | 2016-08-15 11:45 | NUR ---
Rehab Note- Recieved phone call from Jennie Ley with [facility] & stated had denied an IRF stay for the patient but had approved a lower level of care stay, SNF stay, for the patient. A peer to peer can be done with in the next 24hrs for the denial. And the family can proceed with the appeals process after a decision on the peer to peer occurs. Jennie Ley with [facility] phone #[phone], fax#[phone]. Appeals process #[phone] & fax #[phone]. Spoke with MEGAN Garcia & she is going to notify and also the family. Марина Kenyon RN Clnical Liaison, [facility] Rehab/[place]
--- NOTE | 2016-08-15 11:54 | NUR ---
Rehab Note- spoke with MEGAN Garcia. is willing at this current time to do peer to peer with Dr. Burroughs with [facility]. MEGAN Garcia notified Jennie Ley with [facility] that is going to arrange the peer to peer at this time. Will continue to follow at this time. Марина Kenyon RN Clinical Liaison, [facility] Rehab/[place]
--- NOTE | 2016-08-15 12:27 | NUR ---
GLUCOSE LEVEL 211. FOUR UNITS OF SLIDING SCALE INSUIN GIVEN
[2016-08-15 12:36] VITALS: BP 167/71
--- NOTE | 2016-08-15 15:08 | NUR ---
IN ROOM. ANXIOUS IN REGARD TO WHEN LAB WILL BE HERE TO DRAW BLOOD. THIS NURSE CALLED DOWN TO LAB. LAB STATED THAT THEY WILL BE UP TO DRAW BLOOD.
[2016-08-15 15:35] VITALS: BP 147/63
[2016-08-15 15:36] LABS: HEMATOCRIT 29.9 % (42.0-54.0); HEMOGLOBIN 9.2 g/dL (13.5-17.5); MCH 24.9 pg (26.0-34.0); MCHC 30.8 g/dL (31.0-37.0); MEAN PLATELET VOLUME 10.1 fL (7.4-10.4); RBC 3.69 10x6/uL (4.20-6.10); RDW 19.6 % (11.5-14.5); WBC 6.7 10x3/uL (4.8-10.8)
--- NOTE | 2016-08-15 16:06 | NUR ---
Rehab Note- Spole with Coral & Dr. Robison, stated that he spoke with Dr. Burroughs with [facility] & they still denied the patient an IRF stay. Met with the patient & patient's & provided them with the [facility] Appeals phone # [phone]. The patient's states that she will be appealing. Spoke with MEGAN Benton to inform him of this & that I had provided them with the [facility] Appeals phone number. Марина Kenyon RN Clinical Liaison, [facility] Rehab/[place]
--- NOTE | 2016-08-15 16:13 | NUR ---
Rehab Note- Spoke with Jennie at [facility] & she has closed the case where that the family can proceed with the appeals process since he was denied IRF stay after peer to peer with with [facility] & Dr. Robison. Марина Kenyon RN Clinical Liaison, [facility] Rehab/[place]
--- NOTE | 2016-08-15 16:34 | NUR ---
GLUCOSE LEVEL 145. NO SLIDING SCALE INSULIN GIVEN
--- NOTE | 2016-08-15 17:34 | NUR ---
REMAINS WITH PATIENT IN ROOM. PATIENT SITTING UP IN BED AND EATTING SUPPER. VOICES NO NEEDS
--- NOTE | 2016-08-15 19:30 | NUR ---
RESUMED CARE OF PT, IV-LFA-NS@ 30, AT BED SIDE, BED IS LOW, SRX2,DENIES ANY NEEDS, CALL LIGHT IN REACH, WILL CONTINUE TO MONITOR
--- NOTE | 2016-08-15 19:56 | NUR ---
ANSWER CALL LIGHT HELP ASSIST TO RESTROOM, TOLD TO PULL LIGHT WHEN DONE
[2016-08-15 20:00] VITALS: BP 162/70
[2016-08-16] VITALS: BP 148/61
[2016-08-16 05:18] LABS: BASOPHILS 0.2 % (0.0-2.0); EOSINOPHILS 3.7 % (0-7); HEMATOCRIT 28.8 % (42.0-54.0); HEMOGLOBIN 8.8 g/dL (13.5-17.5); IMMATURE GRANULOCYTES 0.5 % (0-5); LYMPHOCYTES 8.1 % (15-50); MCH 25.1 pg (26.0-34.0); MCHC 30.6 g/dL (31.0-37.0); MCV 82.1 fL (80.0-100.0); MEAN PLATELET VOLUME 10.4 fL (7.4-10.4); MONOCYTES 6.9 % (2-11); NEUTROPHILS 80.6 % (40-80); PLATELET COUNT 285 10x3/uL (130-400); RBC 3.51 10x6/uL (4.20-6.10); RDW 19.7 % (11.5-14.5); WBC 5.7 10x3/uL (4.8-10.8)
[2016-08-16 05:34] LABS: ANION GAP 16.8 mmol/L (8-16); CALCIUM 7.8 mg/dL (8.5-10.1); CARBON DIOXIDE 20.9 mmol/L (21.0-32.0); CREATININE - SERUM 5.4 mg/dL (0.6-1.3); POTASSIUM - SERUM 3.7 mmol/L (3.5-5.1)
--- NOTE | 2016-08-16 06:15 | NUR ---
PT VISITING WITH , DENIES ANY NEEDS
[2016-08-16 06:28] VITALS: BP 149/62
--- NOTE | 2016-08-16 07:00 | NUR ---
PT. WAS RECEIVED IN BED AWAKE AND ORIENTED X 3 AT THE BEGINNING OF THIS SHIFT. RT. FOREARM IV WITH NS GOING AT 30ML'S/HR. AT BEDSIDE. PT REQUIRES ASSIST WHEN HE GETS OUT OF BED AND TO THE BATHROOM. WILL BE MONITORING HIM THROUGHOUT THIS SHIFT AND ASSISTING PRN WITH ADL'S. NO SIGNS OF ANY DISCOMFORT OR DISTRESS SEEN.
[2016-08-16 08:00] VITALS: BP 141/62
[2016-08-16 09:11] LABS: % SATURATION 17 % (15-55); IRON 35 ug/dl (35-150); TOTAL IRON BIND CAPACITY 204 ug/dl (260-445); UNSAT IRON BIND CAPACITY 169 ug/dl (150-375)
[2016-08-16 09:47] LABS: THYROID STIMULATING HORMONE 5.92 uIU/mL (0.36-3.74)
--- NOTE | 2016-08-16 10:26 | NUR ---
Nutrition follow-up: diet: ADA consistent CHO PO Intake ~50-75% of meals Pt very tired today; pt reports no appetite. Labs reviewed; noted pt may be starting dialysis soon +BM Wt: 160# Will continue to provide food choices and honor food preferences within diet restrictions. RDN following.
[2016-08-16 11:46] VITALS: BP 155/68
[2016-08-16 16:00] VITALS: BP 147/60
--- NOTE | 2016-08-16 16:11 | NUR ---
Rehab Note- Spoke with the patient & the patient's on paying private pay for [facility] IRF stay. Had spoken with [facility] MEDICARE INSURANCE SPECIALIST and approved the patient to pay private pay. Will follow up with the family and case management when plan of discharge. Марина Kenyon RN Clinical Liaison, [facility] Rehab/[place]
[2016-08-16 17:12] LABS: AEROBE ID Final report (()); RESULT 1 Aerococcus urinae (())
--- NOTE | 2016-08-16 17:39 | NUR ---
PT HAS HAD AN UNEVENTFUL SHIFT TODAY. HAS BEEN WITH HIM ALL DAY. OTHER COMPANY HAS COME AND GONE TO. BLOOD SUGAR LEVELS HAVE BEEN MONITORED ORDERED.
[2016-08-16 20:00] VITALS: BP 139/65
--- NOTE | 2016-08-16 20:05 | NUR ---
RESUMED CARE OF PT, RESERVED L ARM, NON-WORKING AVF, FAMILY AT BEDSIDE, IV-RFA-NS @30, BED IS LOW, SRX2, CALL LIGHT IN REACH WILL CONTINUE TO MONITOR
--- NOTE | 2016-08-17 02:17 | NUR ---
LYING IN BED, CALL LIGHT IN REACH. WILL CONTINUE WITH PLAN OF CARE.
[2016-08-17 04:00] VITALS: BP 148/66
[2016-08-17 05:28] LABS: BASOPHILS 0.2 % (0.0-2.0); EOSINOPHILS 3.8 % (0-7); HEMOGLOBIN 7.9 g/dL (13.5-17.5); IMMATURE GRANULOCYTES 0.6 % (0-5); LYMPHOCYTES 7.1 % (15-50); MCHC 30.4 g/dL (31.0-37.0); MCV 82.3 fL (80.0-100.0); MONOCYTES 6.6 % (2-11); NEUTROPHILS 81.7 % (40-80); PLATELET COUNT 258 10x3/uL (130-400); RBC 3.16 10x6/uL (4.20-6.10); RDW 19.9 % (11.5-14.5); WBC 6.5 10x3/uL (4.8-10.8)
[2016-08-17 05:58] LABS: ANION GAP 16.5 mmol/L (8-16); CALCIUM 7.7 mg/dL (8.5-10.1); CARBON DIOXIDE 20.4 mmol/L (21.0-32.0); CREATININE - SERUM 5.6 mg/dL (0.6-1.3); POTASSIUM - SERUM 3.9 mmol/L (3.5-5.1)
--- NOTE | 2016-08-17 07:36 | NUR ---
PT IS RESTING IN BED WITH EYES OPEN. ALERT AND ORIENTED X 3. DENIES ACUTE PAIN OR DISCOMFORT. STATES: "IM JUST WAITING ON KAYLENE TO COME AROUND TO SEE ME. SHE PUT ME ON THESE ANTIBIOTICS, AND I JUST WANT TO SEE WHAT IS GOING ON." IV INFUSING TO RFA WITHOUT DIFFICULTY. NO REDNESS OR EDEMA NOTED AT THE INSERTION SITE. 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 SR'S ARE UP X 2 IN BED. CALL LIGHT AND BEDSIDE TABLE ARE WITHIN EASY REACH.
[2016-08-17 09:17] LABS: FOLATE (FOLIC ACID) - SERUM 3.6 ng/mL (>3.0)
[2016-08-17 09:30] VITALS: BP 139/64
--- NOTE | 2016-08-17 09:49 | NUR ---
RESTS WITH EYES CLOSED. AT BS. CALL LIGHT IN REACH. WILL MONITOR NEEDS.
--- NOTE | 2016-08-17 11:12 | NUR ---
Patient Name: DEVAUGHN LLAMAS Encounter No: [id number] : 1935 Primary Insurance: [facility] Anticipated DC Date: Planned Disposition: Inpatient Rehab External Planned Provider: [facility] INPATIENT REH[facility] DCP follow-up note: CM SPOKE TO KAYLENE OF INPATIENT REHAB, THEY PLAN TO ACCEPT PT TODAY FOR REHAB. PT AND SPOUSE NOTIFIED, IN AGREEMENT WITH DISCHARGE TO INPATIENT REHAB. PT'S SPOUSE WILL PRIVATE PAY REHAB SERVICES. IMPORTANT MESSAGE FROM MEDICARE PROVIDED AND DISCUSSED. CM NOTIFIED DR. FRYE'S NURSE IN CLINIC. FOR DISCHARGE, NOTIFY [facility] INPATIENT REHAB. [facility] INPATIENT REHAB TO CONTACT MED 2 NURSE WITH ROOM NUMBER WHEN READY TO ACCEPT PT AND NURSE REPORT. Maik Hung, CASE MANAGEMENT
[2016-08-17] MEDS ORDERED: NYSTATIN ORAL SU5 ML PO (11:36)
[2016-08-17] MEDS ORDERED: PLAVIX75 MG PO (11:37)
--- NOTE | 2016-08-17 11:53 | NUR ---
PT IS RESTING IN BED ANXIOUS TO EAT LUNCH. NO ACUTE DISTRESS NOTED. SPOUSE IS AT BEDSIDE.
[2016-08-17 12:00] VITALS: BP 138/59
[2016-08-17] MEDS ORDERED: ROCEPHIN 1 GM/D51 G1 IV (12:17)
--- NOTE | 2016-08-17 14:44 | NUR ---
PT RESTING IN BED WITH EYES OPEN. NOTED WITH 4+ WEEPING EDEMA TO RIGHT ELBOW. ARM ELEVATED UP ON 2 PILLOWS AT THIS TIME.
--- NOTE | 2016-08-17 16:50 | NUR ---
PT DC'D TO REHAB, ROOM 1115 AT THIS TIME. ALL BELONGINGS TAKEN WITH PT.
== END 2016-08-17 17:53 | DRG 690 ==
LOC: D.ER 17:07 → OBSVTIME 22:01 → D.M2 22:01
PROVIDERS: Emergency Medicine; Internal Medicine Nephrology; Physician Assistant Medical; Surgery; ADMIT Family Medicine
DX: N39.0 Urinary tract infection, site not specified (principal); I12.0 Hypertensive chronic kidney disease with stage 5 chronic kidney disease or end stage renal disease; N18.5 Chronic kidney disease, stage 5; B37.0 Candidal stomatitis; E87.2 Acidosis; E11.22 Type 2 diabetes mellitus with diabetic chronic kidney disease; Z79.4 Long term (current) use of insulin; E03.9 Hypothyroidism, unspecified; E78.5 Hyperlipidemia, unspecified; D63.1 Anemia in chronic kidney disease; I25.10 Atherosclerotic heart disease of native coronary artery without angina pectoris; R62.7 Adult failure to thrive; N40.0 Benign prostatic hyperplasia without lower urinary tract symptoms

== ENCOUNTER 2016-08-17 14:56 | Inpatient (IN) | payer OTHER ==
[~2016-08-17] VITALS: Ht 172.7 cm; Wt 72.6 kg
[~2016-08-17 14:56] MED LIST changes: +NYSTATIN ORAL SU5 ML PO; +ROCEPHIN 1 GM/D51 G1 IV
[2016-08-17 17:49] VITALS: BP 160/92; BMI 24.3
--- NOTE | 2016-08-17 18:49 | NUR ---
ADMIT FROM MED 2. ADELAE HAS X2 SMALL SKIN REARS. BUTTOCKS IS RED AND PURPLE IN SOME AREAS MOSTLY AROUND CRACK. BRUISING NOTED TO INSIDE RT GROIN. RUE HAS EDEMA TO AREA ABOVE ELBOW AND IS ACTIVELY LEAKING. PINK PAD AND PILLOW PLACED UNDER ARM. IS WITH PT IN HIS ROOM
--- NOTE | 2016-08-17 19:30 | NUR ---
SPOUSE PRESENT, PATIENT AND SPOUSE CONVERSIVE, VITALS OBTAINED, NO S/S OF ACUTE DISTRESS, NO NEEDS NOTED.
[2016-08-17 20:28] VITALS: BP 134/60
--- NOTE | 2016-08-17 21:00 | NUR ---
SPOUSE ASSISTS WITH CARES SUCH TOILETING. PT ALERT, ORIENTED, CONVERSIVE, DENIES PAIN. NO OTHER NEEDS NOTED.
--- NOTE | 2016-08-18 00:15 | NUR ---
PT AWAKE, ASSISTED WITH REPOSITIONING IN BED, MAX ASSIST WITH BED MOBIILTY. SPOUSE STATES PATIENT NEEDS SOMETHING TO HELP HIM SLEEP. LEFT NOTE FOR PHYSICIAN.
--- NOTE | 2016-08-18 05:33 | NUR ---
PT RESTING QUIETLY, EYES CLOSED, RESPIRATIONS REGULAR AND UNLABORED. NO S/S OF ACUTE DISTRESS. SPOUSE APPEARS TO BE SLEEPING IN RECLINING CHAIR IN ROOM.
--- NOTE | 2016-08-18 07:20 | NUR ---
TAKEN TO BATHROOM/WC MOD ASSIST.BM AND VOID NOTED.POS IN WC.SET UP FOR MEAL.CL IN REACH.
[2016-08-18 07:35] VITALS: BP 70/31
--- NOTE | 2016-08-18 07:35 | NUR ---
c/o dizzieness.bp checked and noted 70/31;placed back in bed head 20 degree's and feet up.b/p rechecked and noted 110/51.color back in face and states feeling better.will watch closely.
--- NOTE | 2016-08-18 07:35 | NUR ---
CO DIZZIENESS.BP CHECKED.70/31 NOTED.PLACED BACK IN BED WITH 2 PERSON ASSIST.COLOR PALE.HOB 20 DEGREE'S,FEET UP.COLOR BACK IN FACE.BP RECHECKED;110/51,PULSE 63;RESP 16, PULE OX 99%.
[2016-08-18 07:38] VITALS: BP 110/51
--- NOTE | 2016-08-18 08:30 | NUR ---
RESTING QUIETLY IN BED.CL IN REACH.
[2016-08-18 10:24] VITALS: Ht 172.7 cm; Wt 72.6 kg
[2016-08-18 10:31] LABS: BASOPHILS 0.1 % (0.0-2.0); EOSINOPHILS 2.3 % (0-7); HEMATOCRIT 28.3 % (42.0-54.0); HEMOGLOBIN 8.8 g/dL (13.5-17.5); IMMATURE GRANULOCYTES 0.5 % (0-5); LYMPHOCYTES 6.3 % (15-50); MCH 25.6 pg (26.0-34.0); MCHC 31.1 g/dL (31.0-37.0); MCV 82.3 fL (80.0-100.0); MEAN PLATELET VOLUME 9.4 fL (7.4-10.4); MONOCYTES 5.4 % (2-11); NEUTROPHILS 85.4 % (40-80); PLATELET COUNT 258 10x3/uL (130-400); RBC 3.44 10x6/uL (4.20-6.10); RDW 20.4 % (11.5-14.5); WBC 7.3 10x3/uL (4.8-10.8)
[2016-08-18 11:39] LABS: CREATININE - SERUM 5.6 mg/dL (0.6-1.3)
[2016-08-18 11:40] LABS: ANION GAP 18.3 mmol/L (8-16); CALCIUM 7.9 mg/dL (8.5-10.1); CARBON DIOXIDE 20.8 mmol/L (21.0-32.0); POTASSIUM - SERUM 4.1 mmol/L (3.5-5.1)
--- NOTE | 2016-08-18 12:00 | NUR ---
SITTING UP IN WC IN THERAPLY.TIANA WELL.
[2016-08-18 14:00] VITALS: BP 118/58; BP 127/64; BP 140/78
--- NOTE | 2016-08-18 16:00 | NUR ---
AT BEDSIDE.DENIES NEEDS.
[2016-08-18 20:00] VITALS: BP 147/64
--- NOTE | 2016-08-18 20:00 | NUR ---
PT IN BED WITH HOB UP FOR COMFORT, VISITING WITH AND NEPHEW, PT HAS NO COMPLAINTS AT THIS TIME, BED IN LOWEST POSITION AND CALL LIGHT WITHIN REACH.
--- NOTE | 2016-08-19 | NUR ---
PT IN BED WITH HOB UP FOR COMFORT, EYES CLOSED, CHEST RISING AND FALLING, BED IN LOWEST POSITION AND CALL LIGHT WITHIN REACH.
--- NOTE | 2016-08-19 04:11 | NUR ---
pt resting quietly, no s/s of acute distress, sitter present in room. respirations regular and unlabored, eyes closed.
--- NOTE | 2016-08-19 06:44 | NUR ---
PT IN BED WITH HOB UP FOR COMFORT, EYES OPEN, CALL LIGHT WITHIN REACH AND BED IN LOWEST POSITION.
[2016-08-19 08:00] VITALS: BP 122/60
--- NOTE | 2016-08-19 08:00 | NUR ---
OOB TO WC WITH MOD ASSIST X1.BREAKFAST GIVEN.MEAL SET-UP PROVIDED.
--- NOTE | 2016-08-19 12:00 | NUR ---
UP OOB TO WC FOR LUNCH.DENIES NEEDS.FAMILY PRESENT AT SIDE.
--- NOTE | 2016-08-19 16:00 | NUR ---
FAMILY AT BEDSIDE.DENIES NEEDS.
--- NOTE | 2016-08-19 19:00 | NUR ---
PATIENT SITTING UP IN W/C AT PRESENT. FAMILY MEMBER IN ROOM. DAY SHIFT NURSE CHANGING PATIENT'S GOWN FOR HS. MR. LLAMAS DENIES FURTHER NEEDS AT THIS TIME.
--- NOTE | 2016-08-19 20:20 | NUR ---
REMAINS IN BED, AWAKE. SITTER ARRIVED A SHORT WHILE AGO AND IS IN ROOM WITH PATIENT.
[2016-08-19 21:50] VITALS: BP 141/53
--- NOTE | 2016-08-19 21:50 | NUR ---
ASSESSMENT AND HS MEDS COMPLETE. FLUSHED RIGHT FA S/L WHICH REMAINS PATENT BUT MILDLY SLUGGISH. CHANGE OUT PINK PAD UNDER RIGHT UPPER ARM AND TOPPED IT WITH A BLUE DISPOSABLE PAD. RIGHT ARM ELEVATED ON A PILLOW ON THE PAD DUE TO WEEPING EDEMA FROM RIGHT UPPER ARM. NO OBVIOUS WOUND, BUT LARGE AMOUNT OF BRUISING AND ECCHYMOSIS UNDLERLYING VERY THIN FRAGILE SKIN TO HIS UPPER ARM AND INDEED TO BILAT ARMS IN GENERAL.
--- NOTE | 2016-08-20 00:10 | NUR ---
CONTINIUES IN BED, EYES CLOSED. APPEARS COMFORTABLE.
--- NOTE | 2016-08-20 02:20 | NUR ---
RESTING IN BED, EYES CLOSED. NO DISTRESS NOTED.
--- NOTE | 2016-08-20 04:40 | NUR ---
CONTINUES IN BED, RESTING QUIETLY. RESPIRATIONS ARE REGULAR AND UNLABORED.
--- NOTE | 2016-08-20 06:35 | NUR ---
FSBS 168. GAVE PATIENT 2 UNITS REGULAR S/S INSULIN SC IN RIGHT UPPER OUTER ARM. TOO PO MEDS WITHOUT DIFFICULTY. D/C'D 22GA S/L FROM RIGHT DISTAL FOREARM NEAR WRIST. PATIENT HAS NO FURTHER IV MED ORDERS AND S/L HAS BEEN IN TOO LONG. THINKS IT IS THE SAME ONE SITED WHEN PATIENT ADMITTED TO THE HOSPITAL TO ACUTE CARE. APPLIED GAUZE DRESSING WITH PAPER TAPE AND APPLIED PRESSURE FOR 2 MINUTES.
--- NOTE | 2016-08-20 07:32 | NUR ---
RESTING QUIETLY IN BED. CALL LIGHT IN REACH
--- NOTE | 2016-08-20 07:40 | NUR ---
PT IS RESTING IN BED WITH EYES OPEN. ALERT AND ORIENTED X 3. DENIES ACUTE DISCOMFORT AT THIS TIME. VSS. BP IS 102/42. PT STATES HE DOES NOT WANT ALL HIS BLOOD PRESSURE MEDICINE THIS MORNING. RIGHT ARM NOTED WITH 2+ EDEMA IN ELBOW. SMALL AMOUNT OF WEEPING PRESENT. 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 SPOUSE IS AT BEDSIDE. SR'S ARE UP X 2 IN BED. CALL LIGHT AND BEDSIDE TABLE ARE WITHIN EASY REACH.
[2016-08-20 08:00] VITALS: BP 101/42
--- NOTE | 2016-08-20 09:45 | NUR ---
PT IS RESTING IN BED RELAXING, WHILE AWAITING THERAPY THIS AM. NO NEEDS VOICED.
--- NOTE | 2016-08-20 13:16 | NUR ---
PT IS FEEDING SELF LUNCH IN HIS ROOM. SPOUSE AT BEDSIDE.
--- NOTE | 2016-08-20 15:39 | NUR ---
PT IS RESTING IN BED WITH EYES CLOSED. RESPS ARE EVEN AND UNLABORED. NO ACUTE DISTRESS NOTED.
--- NOTE | 2016-08-20 19:20 | NUR ---
PATIENT IN BED, AWAKE. VISITING AT BEDSIDE. PATIENT DENIES NEEDS.
[2016-08-20 21:10] VITALS: BP 159/65
--- NOTE | 2016-08-20 21:10 | NUR ---
ASSESSMENT AND HS MEDS COMPLETE. SON STAYING IN ROOM WITH PATIENT. MR. LLAMAS HAS NO C/O AT THIS TIME.
--- NOTE | 2016-08-20 22:25 | NUR ---
RESTING QUIETLY, EYES CLOSED. NO DISTRESS NOTED.
--- NOTE | 2016-08-21 | NUR ---
IN BED, EYES CLOSED. APPEARS COMFORTABLE.
--- NOTE | 2016-08-21 02:10 | NUR ---
REMAINS IN BED, EYES CLOSED. RESTING QUIETLY.
--- NOTE | 2016-08-21 05:27 | NUR ---
FSBS 155. GAVE PATIENT 2 UNITS REGULAR S/S INSULIN SC INJ IN RUQ ABDOMEN. REMAINS IN GOWN DUE TO WEEPING FROM RIGHT UPPER ARM. CHANGED OUT DISPOSABLE BLUE PAD DUE TO MILD TO MODERATE AMOUNT OF CLEAR SEROUS DRAINAGE FROM THE RIGHT ARM.
[2016-08-21 06:50] LABS: BASOPHILS 0.3 % (0.0-2.0); HEMATOCRIT 27.9 % (42.0-54.0); HEMOGLOBIN 8.5 g/dL (13.5-17.5); IMMATURE GRANULOCYTES 0.3 % (0-5); LYMPHOCYTES 8.7 % (15-50); MCH 25.4 pg (26.0-34.0); MCHC 30.5 g/dL (31.0-37.0); MCV 83.5 fL (80.0-100.0); MEAN PLATELET VOLUME 10.4 fL (7.4-10.4); MONOCYTES 7.1 % (2-11); NEUTROPHILS 78.6 % (40-80); PLATELET COUNT 245 10x3/uL (130-400); RBC 3.34 10x6/uL (4.20-6.10); RDW 20.6 % (11.5-14.5); WBC 6.7 10x3/uL (4.8-10.8)
[2016-08-21 07:11] LABS: ANION GAP 18.1 mmol/L (8-16); CALCIUM 8.2 mg/dL (8.5-10.1); CARBON DIOXIDE 19.8 mmol/L (21.0-32.0); CREATININE - SERUM 5.4 mg/dL (0.6-1.3); PHOSPHOROUS 4.5 mg/dL (2.5-4.9); POTASSIUM - SERUM 3.9 mmol/L (3.5-5.1)
--- NOTE | 2016-08-21 08:15 | NUR ---
PT RESTING IN BED WITH EYES OPEN CALL LIGHT IN REACH NO PROBLEMS WILL MONITER
--- NOTE | 2016-08-21 14:13 | NUR ---
Nutrition Follow Up: Pt was unavailable at the time of RD visit. Spoke with pt's who stated that he has not had any trouble swallowing and she was unsure why he was on thickened liquids. RD explained that I would speak with FORWARD AIR CONTROLLER/AIR OFFICER and the diet would need to be what she recommended. Pt's understood. She stated that his appetite has been great. Noted since speaking with pt's FORWARD AIR CONTROLLER/AIR OFFICER has changed diet. Pt is eating 71% meal avg on a Diabetic [facility] soft diet with nectar thick liquids. Wt stable. I<O. +BM 08/20/16. Meds noted including Humulin. Labs noted - BUN, Cr, Glucose elevated. Pt is now on a regular diabetic diet with thin liquids. Rec continue current diet per FORWARD AIR CONTROLLER/AIR OFFICER recs. RD following.
[2016-08-21 19:12] VITALS: BP 136/62
--- NOTE | 2016-08-21 19:25 | NUR ---
PT RESTING IN BED WATCHING TV. PT DENIES NEEDS AT THIS TIME. BED LOW. CL IN REACH.
--- NOTE | 2016-08-21 21:30 | NUR ---
PT TOOK HS MEDS WITHOUT DIFFICULTY. PT HAS AID AT BEDSIDE ASSISTING WITH TOILETING AND OTHER NEEDS. WCTM. BED LOW. CL IN REACH.
--- NOTE | 2016-08-21 22:32 | NUR ---
PT RESTING, EYES CLOSED. BED LOW. CL IN REACH.
--- NOTE | 2016-08-22 01:49 | NUR ---
PT RESTING, EYES CLOSED. BED LOW. CL IN REACH.
--- NOTE | 2016-08-22 03:45 | NUR ---
PT RESTING, EYES CLOSED. BED LOW. CL IN REACH.
--- NOTE | 2016-08-22 06:05 | NUR ---
PT TOOK AM MEDS WITHOUT DIFFICULTY. PT DENIES NEEDS. WCTM. BED LOW. CL IN REACH.
[2016-08-22 06:53] LABS: BASOPHILS 0.1 % (0.0-2.0); EOSINOPHILS 3.4 % (0-7); HEMATOCRIT 28.8 % (42.0-54.0); HEMOGLOBIN 8.9 g/dL (13.5-17.5); IMMATURE GRANULOCYTES 0.4 % (0-5); LYMPHOCYTES 7.1 % (15-50); MCH 25.4 pg (26.0-34.0); MCHC 30.9 g/dL (31.0-37.0); MCV 82.3 fL (80.0-100.0); MEAN PLATELET VOLUME 10.2 fL (7.4-10.4); MONOCYTES 6.8 % (2-11); NEUTROPHILS 82.2 % (40-80); PLATELET COUNT 291 10x3/uL (130-400); RDW 20.9 % (11.5-14.5); WBC 6.8 10x3/uL (4.8-10.8)
[2016-08-22 07:09] LABS: ANION GAP 13.3 mmol/L (8-16); CALCIUM 8.3 mg/dL (8.5-10.1); CARBON DIOXIDE 23.3 mmol/L (21.0-32.0); CREATININE - SERUM 5.7 mg/dL (0.6-1.3); PHOSPHOROUS 4.4 mg/dL (2.5-4.9); POTASSIUM - SERUM 3.6 mmol/L (3.5-5.1)
--- NOTE | 2016-08-22 07:30 | NUR ---
PT IS RESTING IN BED WITH EYES CLOSED. AWOKE EASILY TO VERBAL STIMULI. ALERT AND ORIENTED X 3. DENIES ACUTE PAIN OR DISCOMFORT. VSS. 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 NO WEEPING NOTED FROM RIGHT ELBOW. SPOUSE IS AT BEDSIDE. SR'S ARE UP X 3 IN BED. CALL LIGHT AND BEDSIDE TABLE ARE WITHIN EASY REACH.
[2016-08-22 08:44] VITALS: BP 155/67
--- NOTE | 2016-08-22 09:22 | NUR ---
PT IS PARTICIPATING IN THERAPY AT THIS TIME. NO ACUTE DISTRESS NOTED.
--- NOTE | 2016-08-22 11:50 | NUR ---
PT IS PARTICIPATING IN THERAPY AT THIS TIME.
--- NOTE | 2016-08-22 13:00 | NUR ---
AT BEDSIDE.CL IN REACH.
--- NOTE | 2016-08-22 14:44 | NUR ---
CARE TEAM MEETING: TENATIVE DISCHARGE DATE IS 08/29/16. PATIENT PCP IS DR. FRYE. PATIENT HAS A WALKER, GLUCOMETER AND C-PAP AT HOME. WILL CONTINUE TO FOLLOW WITH PATIENT UNTIL DISCHARGED.
--- NOTE | 2016-08-22 16:21 | NUR ---
PT RESTING IN BED WITH EYES CLOSED.
[2016-08-22 20:51] VITALS: BP 135/62
--- NOTE | 2016-08-23 03:58 | NUR ---
PT RECEIVED IN BED WITH EYES OPEN AND WATCHING TV. NO CONCERN MADE KNOWN AT THIS TIME. CALL LIGHT IN REACH.
[2016-08-23 05:43] LABS: BASOPHILS 0.1 % (0.0-2.0); EOSINOPHILS 3.8 % (0-7); HEMATOCRIT 27.1 % (42.0-54.0); HEMOGLOBIN 8.3 g/dL (13.5-17.5); IMMATURE GRANULOCYTES 0.4 % (0-5); LYMPHOCYTES 7.5 % (15-50); MCHC 30.6 g/dL (31.0-37.0); MCV 81.6 fL (80.0-100.0); MEAN PLATELET VOLUME 9.8 fL (7.4-10.4); MONOCYTES 7.3 % (2-11); NEUTROPHILS 80.9 % (40-80); PLATELET COUNT 245 10x3/uL (130-400); RBC 3.32 10x6/uL (4.20-6.10); RDW 20.9 % (11.5-14.5); WBC 7.7 10x3/uL (4.8-10.8)
[2016-08-23 06:13] LABS: ANION GAP 20.1 mmol/L (8-16); CALCIUM 7.9 mg/dL (8.5-10.1); CREATININE - SERUM 5.2 mg/dL (0.6-1.3); PHOSPHOROUS 4.3 mg/dL (2.5-4.9); POTASSIUM - SERUM 4.1 mmol/L (3.5-5.1)
--- NOTE | 2016-08-23 07:00 | NUR ---
PT. WAS RECEIVED IN BED AWAKE AND ORIENTED X 3 AT THE BEGINNING OF THIS SHIFT. HIS IS AT HIS BEDSIDE. NO COMPLAINTS OR CONCERNS AT THIS TIME. VITAL SIGNS WNL. WILL BE MONITORING HIM AND ASSISTING PRN WITH ADL'S. CALL LIGHT IS IN REACH. NO DISTRESS SEEN.
--- NOTE | 2016-08-23 08:31 | NUR ---
PT IN BED AND RECEIVED 0600 MEDICATIONS GIVEN WITHOUT DIFFICULTY. FSBS 154 WITH 2 UNITS GIVEN PER SLIDING SCALE. DID COMPLAIN OF CHEST PAIN TO LEFT SIDE. APICAL PULSE WITHIN NORMAL LIMITS. WHEN RAISING HEAD OF BED PT BEGAN TO BURP AND STATED PAIN REDUCING. NO FURTHER COMPLAINTS. CALL LIGHT IN REACH.
--- NOTE | 2016-08-23 08:38 | RHP ---
PATIENT: DEVAUGHN LLAMAS MEDICAL RECORD: [id number] ACCOUNT: [id number] LOCATION:[facility]1115 : 34 ADMISSION DATE: 08/17/16 REHABILITATION HISTORY AND PHYSICAL EXAMINATION POST ADMISSION PHYSICIAN EXAMINATION Post-Admission Physical Examination and History and Physical DATE OF ADMISSION: 08/17/2016 ADMITTING DIAGNOSES: Debility, urinary tract infection secondary to Enterococcus and acute fever and chills. HISTORY OF PRESENT ILLNESS: The patient admitted to the inpatient rehab debility, UTI, acute fever and chills and recent syncope. This is an 80-year-old gentleman who has a history of stage V renal insufficiency. The patient had a cardiac catheterization and stent placed approximately a week ago prior to his hospital stay. He presented to Dr. Robison's office on 08/09/2016 because of complaint of bilateral ear pain. While he is in the office, he had syncope and fainting. He was observed in the office, had a blood sugar of 79. His insulin pump was suspended. He was observed for an hour and a half. The patient deferred admission at that time and went home. He had previous syncope episodes like this multiple times in the past and has been underdiagnosed. He developed onset of chills and fever that night. He presented to Emergency Room with 103 temp. He was admitted for further evaluation. In the ED, he was consistent with a viral type syndrome. He was weak and debilitated with acute hospital, states that he has decreased endurance and strength, muscle weakness and increased shortness of breath. The patient was noted to have UTI, was placed on IV Rocephin. He is in moderate assist with a rolling walker. He was independent with ADLs prior to hospitalization and is max assist with ADLs and [id number] assist with mobility at this time. The patient and his plan to return home to his prior level of function, which was moderately independent with a rolling walker. COMORBIDITIES: In this patient include febrile illness, leukocytosis, recent percutaneous coronary artery angioplasty, anemia, hypertension, near syncope, cholelithiasis, BPH and hyperlipidemia. PAST MEDICAL HISTORY: Significant for stage V renal insufficiency, diabetes mellitus, hypothyroidism, osteoarthritis, hyperlipidemia, diverticulitis; he has had anemia, thyroid problems, TIA and macular degeneration. PAST SURGICAL HISTORY: Includes a fistula placed in his arm, had elbow surgery, cataract surgery in the past, arthroscopy of his knee and bilateral intraocular lens implant secondary to maculopathy of both eyes. ALLERGIES: PENICILLIN. CURRENT MEDICATIONS: Include Procrit 4000 units daily. He is on sevelamer 0.8 g t.i.d. with meals, melatonin 3 mg at bedtime p.r.n., clonidine 0.1 mg q.4 hours p.r.n. systolic blood pressure greater than 180s, on a low resistant sliding scale with insulin. He is on Synthroid 50 mcg daily, fenofibrate 145 mg daily. He is on Plavix 75 mg daily, amlodipine 10 mg daily. He is on insulin glucose as needed and dextrose. He is on Mycostatin 5 cc q.a.c. and at bedtime, minoxidil 2.5 mg b.i.d., Zaroxolyn 2.5 mg b.i.d., losartan 50 mg b.i.d., HISTORY AND PHYSICAL [id number] DEVAUGHN LLAMAS Apresoline 25 mg b.i.d., Tums 500 mg q.i.d. and polyethylene glycol 17 grams in 8 ounces of water daily. HABITS: No alcohol or tobacco use. FAMILY HISTORY: Noncontributory. SOCIAL HISTORY: The patient hopes to return back home with his and get back to his prior level of functioning. REVIEW OF SYSTEMS: GENERAL: Does complain of weakness and fatigue. HEENT: Denies cold, cough, or congestion. CARDIOVASCULAR: Denies chest pain. PHYSICAL EXAMINATION: VITAL SIGNS: Stable, afebrile. GENERAL: Elderly gentleman in no acute distress upon exam. HEENT: Normocephalic and atraumatic. Mucosa moist. NECK: Supple. No lymphadenopathy. LUNGS: Clear. HEART: Regular rate and rhythm. ABDOMEN: Benign. EXTREMITIES: No clubbing, cyanosis, or edema. NEUROLOGIC: Seems intact. ASSESSMENT: This is an 80-year-old gentleman who is admitted to rehab with a working diagnosis of debility, complicated by recent viral illness and hospital admission. The patient has potential to make improvement. We instituted following multidisciplinary therapies including to, but not limited to physical, occupational, respiratory, speech, nutritional services, prosthetics and orthotics. Given his complex condition and risk for more complications, rehabilitation services cannot be provided at a low level of care such as a prison facility. PLAN: 1. Admit to [facility] rehab for intensive inpatient therapy to include the following disciplines: A. Physical therapy to improve gait, all transfer skills and bed mobility to a modified independent level. B. Occupational therapy to improve activities of daily living to a modified independent level. C. Case management to assist with discharge planning and placement options. D. Nutrition to assist with nutritional needs. E. Rehabilitation nursing to assist in monitoring the patient's underlying medical conditions and to assist with any type of bowel or bladder management. 2. The patient's current medication and medical care will be continued. 3. The patient will be placed on standard fall precautions. 4. We will go ahead and consult renal to see him during his stay. 5. We will go ahead and discuss this patient during care team staff meeting this week. TRANSINT:[id number] Voice Confirmation ID: [id number] DOCUMENT ID: [id number] HISTORY AND PHYSICAL [id number] DEVAUGHN LLAMAS SCOTT MD at 0838 CC: [id number] DICTATION DATE: 08/21/16 1208 GLASS SMOOTHER: 08/21/16 1733 ADM IN [facility] [address] [place] [address]
[2016-08-23 10:37] VITALS: BP 134/55
--- NOTE | 2016-08-23 14:24 | NUR ---
PT HAS GONE TO THERAPY AND IS WORKING REALLY HARD TODAY. NO VERBAL COMPLAINTS TO STAFF. WILL CONTINUE TO OBSERVE AND ASSIST.
[2016-08-23 19:38] VITALS: BP 142/63
--- NOTE | 2016-08-23 19:45 | NUR ---
PT RECEIVED IN BED WITH EYES OPEN WATCHING TV WITH FAMILY AT BEDSIDE. NO CONCERNS OR COMPLAINTS OF PAIN. CALL LIGHT IN REACH.
--- NOTE | 2016-08-24 02:34 | NUR ---
PT IN BED WITH COMPLAINTS OF NAUSEA WITHOUT VOMITING. SALTINE CRACKERS OFFERED. WILL CONTINUE TO OBSERVE.CALL LIGHT IN REACH
[2016-08-24 05:44] LABS: BASOPHILS 0.2 % (0.0-2.0); EOSINOPHILS 2.5 % (0-7); HEMOGLOBIN 8.3 g/dL (13.5-17.5); IMMATURE GRANULOCYTES 0.3 % (0-5); LYMPHOCYTES 6.6 % (15-50); MCH 25.5 pg (26.0-34.0); MCHC 30.7 g/dL (31.0-37.0); MCV 83.1 fL (80.0-100.0); MONOCYTES 6.5 % (2-11); NEUTROPHILS 83.9 % (40-80); PLATELET COUNT 272 10x3/uL (130-400); RBC 3.25 10x6/uL (4.20-6.10); RDW 21.1 % (11.5-14.5); WBC 8.8 10x3/uL (4.8-10.8)
[2016-08-24 06:10] LABS: ANION GAP 13.6 mmol/L (8-16); CALCIUM 7.9 mg/dL (8.5-10.1); CARBON DIOXIDE 23.3 mmol/L (21.0-32.0); CREATININE - SERUM 5.2 mg/dL (0.6-1.3); PHOSPHOROUS 4.4 mg/dL (2.5-4.9); POTASSIUM - SERUM 3.9 mmol/L (3.5-5.1)
--- NOTE | 2016-08-24 07:30 | NUR ---
RESTING QUIETLY IN BED CALL LIGHT IN REACH
[2016-08-24 08:43] VITALS: BP 146/65
[2016-08-24 19:38] VITALS: BP 138/57
--- NOTE | 2016-08-24 21:01 | NUR ---
PT IN BED WITH HOB UP FOR COMFORT, WATCHING TV, PT WANTED THE AIR TURNED ON CAUSE HE STATED THAT HE WAS HOT, ADJUSTED THERMOSTAT TO HIS LIKING, BED IN LOWEST POSITION AND CALL LIGHT WITHIN REACH.
--- NOTE | 2016-08-24 23:10 | NUR ---
PT. IN BED WITH HOB UP FOR COMFORT. EYES ARE CLOSED AND RESP. EVEN. CALL LIGHT WITHIN REACH.
--- NOTE | 2016-08-25 01:03 | NUR ---
PT IN BED WITH HOB UP FOR COMFORT, EYES CLOSED, RESPIRATIONS EVEN AND UNLABORED, BED IN LOWEST POSITION AND CALL LIGHT WITHIN REACH.
--- NOTE | 2016-08-25 04:53 | NUR ---
PT IN BED WITH HOB UP FOR COMFORT, EYES CLOSED, CHEST RISING AND FALLING, BED IN LOWEST POSITION AND CALL LIGHT WITHIN REACH.
[2016-08-25 07:00] VITALS: BP 125/67
--- NOTE | 2016-08-25 07:30 | NUR ---
RESTING QUIETLY IN ROOM CALL LIGHT IN REACH
[2016-08-25 07:31] LABS: BASOPHILS 0.2 % (0.0-2.0); EOSINOPHILS 2.1 % (0-7); HEMATOCRIT 27.8 % (42.0-54.0); HEMOGLOBIN 8.5 g/dL (13.5-17.5); IMMATURE GRANULOCYTES 0.3 % (0-5); LYMPHOCYTES 4.5 % (15-50); MCH 25.6 pg (26.0-34.0); MCHC 30.6 g/dL (31.0-37.0); MCV 83.7 fL (80.0-100.0); MONOCYTES 8.3 % (2-11); NEUTROPHILS 84.6 % (40-80); PLATELET COUNT 279 10x3/uL (130-400); RBC 3.32 10x6/uL (4.20-6.10); RDW 21.4 % (11.5-14.5); WBC 9.2 10x3/uL (4.8-10.8)
[2016-08-25 07:45] LABS: ANION GAP 13.6 mmol/L (8-16); CARBON DIOXIDE 21.1 mmol/L (21.0-32.0); CREATININE - SERUM 5.2 mg/dL (0.6-1.3); PHOSPHOROUS 4.3 mg/dL (2.5-4.9); POTASSIUM - SERUM 3.7 mmol/L (3.5-5.1)
--- NOTE | 2016-08-25 12:02 | NUR ---
SITTING UP IN W/C EATING LUNCH. IN ROOM WITH PT. HE IS WEAK BUT DENIES PAIN OR SOB. ANKLES SLIGHTLY SWOLLEN. MIN TO MOD ASST NEEDED FOR ADL'S
--- NOTE | 2016-08-25 16:11 | NUR ---
RESTING IN ROOM. STILL WITH PT. HAS WORKED WITH THERAPY TODAY. APPETITE GOOD. HAS HAD SLIGHT NAUSEA BUT NO EMESIS.
[2016-08-25 20:10] VITALS: BP 149/62
--- NOTE | 2016-08-25 20:10 | NUR ---
PT IN WHEELCAHIR, ASSISTED PT BACK TO BED, IN ROOM, CALL LIGHT WITHIN REACH.
--- NOTE | 2016-08-25 23:25 | NUR ---
PT. IN BED WITH HOB UP FOR COMFORT WITH EYES CLOSED AND RESP. EVEN. CALL LIGHT WITHIN REACH.
--- NOTE | 2016-08-26 00:10 | NUR ---
PT IN BED WITH HOB UP FOR COMFORT, EYES CLOSED, CHEST RISING AND FALLING, URINAL EMPTIED, BED IN LOWEST POSITION AND CALL LIGHT WITHIN REACH.
--- NOTE | 2016-08-26 03:45 | NUR ---
PT IN BED, EYES CLOSED, CHEST RISING AND FALLING, URINAL EMPTIED, BED IN LOWEST POSITION AND CALL LIGHT WITHIN REACH.
[2016-08-26 07:00] VITALS: BP 146/65
--- NOTE | 2016-08-26 07:30 | NUR ---
RESTING QUIETLY IN BED CALL LIGHT IN REACH
--- NOTE | 2016-08-26 11:49 | NUR ---
IN ROOM WITH PT. PT FEELING BETTER TODAY. APPETITE BETTER. MOD ASST WITH ADL'S REQUIRED
--- NOTE | 2016-08-26 16:00 | NUR ---
RESTING IN ROOM WITH DTR. DENIES NEEDS.
[2016-08-26 20:00] VITALS: BP 140/70
--- NOTE | 2016-08-26 20:00 | NUR ---
PT IN BED WITH HOB UP FOR COMFORT, WATCHING TV, PT HAS NO COMPLAINTS AT THIS TIME, URINAL EMPTIED, BED IN LOWEST POSTIION AND CALL LIGHT WITHIN REACH.
--- NOTE | 2016-08-27 | NUR ---
PT IN BED, EYES CLOSED, CHEST RISING AND FALLING, URINAL EMPTIED, BED IN LOWEST POSITION AND CALL LIGHT WITHIN REACH.
--- NOTE | 2016-08-27 01:51 | NUR ---
PT. IN BED WITH HOB UP FOR COMFORT WITH EYES CLOSED AND RESP. EVEN. CALL LIGHT WITHIN REACH.
--- NOTE | 2016-08-27 04:26 | NUR ---
PT IN BED WITH HOB UP FOR COMFORT, EYES CLOSED, CHEST RISING AND FALLING, BED IN LOWEST POSITION AND CALL LIGHT WITHIN REACH.
[2016-08-27 07:28] LABS: BASOPHILS 0.1 % (0.0-2.0); EOSINOPHILS 2.3 % (0-7); HEMATOCRIT 28.2 % (42.0-54.0); HEMOGLOBIN 8.7 g/dL (13.5-17.5); IMMATURE GRANULOCYTES 0.5 % (0-5); LYMPHOCYTES 5.2 % (15-50); MCH 25.7 pg (26.0-34.0); MCHC 30.9 g/dL (31.0-37.0); MCV 83.2 fL (80.0-100.0); MEAN PLATELET VOLUME 9.8 fL (7.4-10.4); MONOCYTES 8.4 % (2-11); NEUTROPHILS 83.5 % (40-80); PLATELET COUNT 288 10x3/uL (130-400); RBC 3.39 10x6/uL (4.20-6.10); RDW 21.8 % (11.5-14.5); WBC 8.3 10x3/uL (4.8-10.8)
[2016-08-27 07:41] LABS: ANION GAP 16.4 mmol/L (8-16); CALCIUM 7.8 mg/dL (8.5-10.1); POTASSIUM - SERUM 3.4 mmol/L (3.5-5.1)
[2016-08-27 13:20] VITALS: BP 150/63
--- NOTE | 2016-08-27 17:53 | NUR ---
SITTING IN W/C EATING SUPPER IN ROOM. DENIES NEEDS CALL LIGHT IN REACH
--- NOTE | 2016-08-27 20:06 | NUR ---
PT RECEIVED IN BED WITH EYES CLOSED AND CHEST RISING. NO SIGN/SYMPTOMS OF DISTRESS NOTED. CALL LIGHT IN REACH.
[2016-08-27 20:45] VITALS: BP 153/68
--- NOTE | 2016-08-28 01:52 | NUR ---
PT IN BED WITH EYES CLOSED AND CHEST RISING. WAKES FREQUENTLY TO USE URINAL WITH 75ML TO 125ML WITH EACH OUTPUT. 4 OUTPUTS AT THIS TIME. NO NEEDS OR CONCERNS NOTED. CALL LIGHT IN REACH.
[2016-08-28 05:58] LABS: BASOPHILS 0.3 % (0.0-2.0); EOSINOPHILS 3.2 % (0-7); HEMATOCRIT 29.6 % (42.0-54.0); IMMATURE GRANULOCYTES 0.5 % (0-5); LYMPHOCYTES 6.6 % (15-50); MCH 25.4 pg (26.0-34.0); MCHC 30.4 g/dL (31.0-37.0); MCV 83.4 fL (80.0-100.0); MEAN PLATELET VOLUME 9.6 fL (7.4-10.4); MONOCYTES 7.9 % (2-11); NEUTROPHILS 81.5 % (40-80); PLATELET COUNT 265 10x3/uL (130-400); RBC 3.55 10x6/uL (4.20-6.10); RDW 21.7 % (11.5-14.5); WBC 7.6 10x3/uL (4.8-10.8)
[2016-08-28 06:24] LABS: ANION GAP 15.3 mmol/L (8-16); CALCIUM 8.1 mg/dL (8.5-10.1); CARBON DIOXIDE 22.2 mmol/L (21.0-32.0); PHOSPHOROUS 4.3 mg/dL (2.5-4.9); POTASSIUM - SERUM 3.5 mmol/L (3.5-5.1)
--- NOTE | 2016-08-28 06:42 | NUR ---
PT IN BED WITH EYES OPEN WATCHING TV. RECEIVED MEDICATIONS PER MAR WITHOUT DIFFICULTY. NO CONCERNS OR COMPLAINTS MADE KNOWN AT THIS TIME. CALL LIGHT IN REACH.
[2016-08-28 08:39] VITALS: BP 155/71
--- NOTE | 2016-08-28 10:02 | NUR ---
Alert and oriented x 3, up in wheelchair brushing teeth per self at sink. at bedside. pt planned to discharge home today. denies pain or discomfort at present. call light at bedside.
--- NOTE | 2016-08-28 13:51 | NUR ---
PATIENT DISCHARGING HOME TODAY WITH FAMILY. WRITTEN SCRIPT GIVEN FOR OUTPATIENT THERAPY. PATIENT HAS WALKER AND C-PAP. DR. FRYE 09/05/16 @ 10:40, DR. Roa 09/12/16 @ 3:00, [facility] FORM SIGNED AND FILED IN CHART.
--- NOTE | 2016-08-28 14:45 | NUR ---
DISCHARGED TO HOME WITH .STABLE CONDITION NOTED.REVIEWED MEDS AND HOMECARE WITH STATED UNDERSTANDING;STATES HAS ALL MEDS ORDERED AT HOME.
--- NOTE | 2016-09-11 09:32 | NUR ---
SPOUSE CALLED TODAY AND ASK IF SHE COULD HAVE HOME HEALTH NOW. DR. FRYE OFFICE REFERRRED HER TO ME . ORDER SENT TO [facility].
== END 2016-08-28 14:45 | disposition home or self-care (01) | DRG 948 ==
LOC: D.REHAB 14:56
PROVIDERS: Internal Medicine Nephrology; ADMIT Emergency Medicine
DX: R53.81 Other malaise (principal); N39.0 Urinary tract infection, site not specified; I12.0 Hypertensive chronic kidney disease with stage 5 chronic kidney disease or end stage renal disease; N18.5 Chronic kidney disease, stage 5; B95.2 Enterococcus as the cause of diseases classified elsewhere; R50.9 Fever, unspecified; Z95.5 Presence of coronary angioplasty implant and graft; D72.829 Elevated white blood cell count, unspecified; I10 Essential (primary) hypertension; R55 Syncope and collapse; N40.0 Benign prostatic hyperplasia without lower urinary tract symptoms; E78.5 Hyperlipidemia, unspecified; K80.20 Calculus of gallbladder without cholecystitis without obstruction; N28.9 Disorder of kidney and ureter, unspecified; E11.22 Type 2 diabetes mellitus with diabetic chronic kidney disease; I25.10 Atherosclerotic heart disease of native coronary artery without angina pectoris; D63.1 Anemia in chronic kidney disease

== ENCOUNTER 2016-09-10 15:35 | Emergency (ER) | payer MEDICARE, OTHER ==
[2016-08-18 10:24] VITALS: BMI 24.3
[2016-09-10 16:48] LABS: APPEARANCE CLEAR (CLEAR); BILIRUBIN NEGATIVE (NEGATIVE); COLOR YELLOW (YELLOW); GLUCOSE 100 mg/dL (NEGATIVE); KETONE NEGATIVE (NEGATIVE); LEUKOCYTE ESTERASE NEGATIVE (NEGATIVE); NITRITE NEGATIVE (NEGATIVE); PROTEIN TRACE mg/dL (NEGATIVE); UROBILINOGEN NORMAL (NORMAL)
[2016-09-10 16:52] LABS: BACTERIA FEW /hpf (NONE SEEN); RED CELLS - URINE 25-50 /hpf (0-5); WHITE CELLS - URINE 0-5 /hpf (0-5)
[2016-09-10 17:03] LABS: BASOPHILS 0.2 % (0.0-2.0); EOSINOPHILS 2.7 % (0-7); HEMATOCRIT 33.2 % (42.0-54.0); HEMOGLOBIN 10.2 g/dL (13.5-17.5); IMMATURE GRANULOCYTES 0.4 % (0-5); LYMPHOCYTES 8.3 % (15-50); MCH 26.4 pg (26.0-34.0); MCHC 30.7 g/dL (31.0-37.0); MEAN PLATELET VOLUME 9.6 fL (7.4-10.4); NEUTROPHILS 77.4 % (40-80); PLATELET COUNT 224 10x3/uL (130-400); RBC 3.86 10x6/uL (4.20-6.10); RDW 22.1 % (11.5-14.5); WBC 4.8 10x3/uL (4.8-10.8)
[2016-09-10 17:37] LABS: ALBUMIN 2.4 g/dL (3.4-5.0); ALKALINE PHOSPHATASE 85 U/L (46-116); ALT (SGPT) 22 U/L (10-68); CALC OSMOLALITY 306 mosm/kg (275-300); CALCIUM 9.7 mg/dL (8.5-10.1); CARBON DIOXIDE 25.2 mmol/L (21.0-32.0); CHLORIDE - SERUM 103 mmol/L (98-107); GLUCOSE 160 mg/dL (74-106); POTASSIUM - SERUM 3.7 mmol/L (3.5-5.1); PROTEIN - SERUM 7.1 g/dL (6.4-8.2); SODIUM 141 mmol/L (136-145); UREA NITROGEN 76 mg/dL (7-18); eGFR NON AFRICAN AMERICAN 10 mL/min (90-120)
[2016-09-10 17:48] LABS: CREATINE KINASE 33 UL (21-232); TROPONIN-I 0.047 ng/mL (0.000-0.060)
== END 2016-09-10 19:20 | disposition home or self-care (01) ==
LOC: D.ER 15:35
PROVIDERS: Physician Assistant Medical
DX: I12.0 Hypertensive chronic kidney disease with stage 5 chronic kidney disease or end stage renal disease (principal); N18.5 Chronic kidney disease, stage 5; R55 Syncope and collapse; N40.0 Benign prostatic hyperplasia without lower urinary tract symptoms; I25.10 Atherosclerotic heart disease of native coronary artery without angina pectoris; E78.5 Hyperlipidemia, unspecified; E03.9 Hypothyroidism, unspecified

== ENCOUNTER 2016-10-09 18:24 | Emergency (ER) | payer MEDICARE, OTHER ==
[2016-08-18 10:24] VITALS: BMI 24.3
[2016-10-09 20:06] LABS: APPEARANCE CLEAR (CLEAR); BILIRUBIN NEGATIVE (NEGATIVE); COLOR YELLOW (YELLOW); GLUCOSE 100 mg/dL (NEGATIVE); KETONE NEGATIVE (NEGATIVE); LEUKOCYTE ESTERASE NEGATIVE (NEGATIVE); NITRITE NEGATIVE (NEGATIVE); PROTEIN TRACE mg/dL (NEGATIVE); UROBILINOGEN NORMAL (NORMAL)
== END 2016-10-09 21:15 | disposition home or self-care (01) ==
LOC: D.ER 18:24
PROVIDERS: Physician Assistant Medical
DX: S00.03XA Contusion of scalp, initial encounter (principal); W01.0XXA Fall on same level from slipping, tripping and stumbling without subsequent striking against object, initial encounter; Y93.89 Activity, other specified; Y92.019 Unspecified place in single-family (private) house as the place of occurrence of the external cause; S01.01XA Laceration without foreign body of scalp, initial encounter

== ENCOUNTER 2016-10-19 10:16 | Inpatient (IN) | payer MEDICARE, OTHER ==
[~2016-10-19] VITALS: Ht 172.7 cm; Wt 68.0 kg
[2016-10-19] VITALS (8 sets, daily range): BP systolic 105–215; BP diastolic 40–106
[2016-10-19 12:05] LABS: BASOPHILS 0.1 % (0-2); EOSINOPHILS 0.5 % (0-7); HEMATOCRIT 28.8 % (42.0-54.0); HEMOGLOBIN 9.1 g/dL (13.5-17.5); IMMATURE GRANULOCYTES 0.4 % (0-5); MCH 25.7 pg (26.0-34.0); MCHC 31.6 g/dL (31.0-37.0); MCV 81.4 fL (80.0-100.0); MEAN PLATELET VOLUME 10.3 fL (7.4-10.4); MONOCYTES 12.1 % (2-11); NEUTROPHILS 81.9 % (40-80); PLATELET COUNT 228 10x3/uL (130-400); RBC 3.54 10x6/uL (4.20-6.10); RDW 17.7 % (11.5-14.5); WBC 8.3 10x3/uL (4.8-10.8)
[2016-10-19 12:15] LABS: ALBUMIN 2.1 g/dL (3.4-5.0); ANION GAP 21.5 mmol/L (8-16); BILIRUBIN - TOTAL 0.69 mg/dL (0.2-1.3); CALCIUM 7.8 mg/dL (8.5-10.1); CARBON DIOXIDE 15.5 mmol/L (21.0-32.0); CREATININE - SERUM 6.6 mg/dL (0.6-1.3); PROTEIN - SERUM 6.3 g/dL (6.4-8.2)
[2016-10-19] MEDS ORDERED: LONITEN2.5 MG PO (13:02)
[2016-10-19] MEDS ORDERED: METOLAZONE2.5 MG PO (13:06)
[2016-10-19 13:08] LABS: ERYTHROCYTE SEDIMENTATION RATE 43 mm/hr (0-20)
[2016-10-19] MEDS ORDERED: ZOFRAN8 MG (13:16)
[2016-10-19] MEDS ORDERED: MEGACE40 MG PO (13:17)
[2016-10-19] MEDS ORDERED: PEPCID AC20 MG PO (13:18)
[2016-10-19] MEDS ORDERED: BAYER CHEWABLE81 MG PO (13:19)
[2016-10-19] MEDS ORDERED: FLOMAX0.4 MG PO (13:20)
[2016-10-19] MEDS ORDERED: VITAMIN B-1000 MCG/M (13:22)
[2016-10-19] MEDS ORDERED: PROCRIT/EP20000 UNIT SQ (13:22)
[2016-10-19] MEDS ORDERED: CATAPRES0.1 MG PO (13:24)
[2016-10-19] MEDS ORDERED: NOVOLOG100 U/M1 SQ (13:26)
[2016-10-19] MEDS ORDERED: TERAZOSIN HCL2 MG PO (13:26)
[2016-10-19] MEDS ORDERED: HYDRALAZINE HCL50 MG PO (13:42)
[2016-10-19 17:57] LABS: APPEARANCE CLEAR (CLEAR); BILIRUBIN NEGATIVE (NEGATIVE); COLOR YELLOW (YELLOW); GLUCOSE 50 mg/dL (NEGATIVE); KETONE NEGATIVE (NEGATIVE); LEUKOCYTE ESTERASE NEGATIVE (NEGATIVE); NITRITE NEGATIVE (NEGATIVE); PROTEIN TRACE mg/dL (NEGATIVE); UROBILINOGEN NORMAL (NORMAL)
[2016-10-19 17:59] LABS: BACTERIA FEW /hpf (NONE SEEN)
--- NOTE | 2016-10-19 18:18 | NUR ---
CALLED PHARMACY SPOKE WITH KYLE. ASKED HER IF SHE CAN GET THE TIME CHANGED ON THE ONE TIME DOSE OF VANCOMYCIN FROM 1400 TO 2000 SINCE THE PATIENT DOES NOT HAVE IV ACCESS AT THIS TIME.
--- NOTE | 2016-10-19 21:03 | NUR ---
TAKING OVER PT FROM KG MCNALLY IN STABLE CONDITION A&OX4
--- NOTE | 2016-10-19 23:02 | NUR ---
RECIEVED PATIENT AND REPORT, PATIENT GIVEN PRE-OP MEDICATIONS AND PREPARED FOR SURGERY AT 1930, PATIENT RETURED FROM SURGY AT 2122, NO DISTRESS NOTED.
[2016-10-20] VITALS (8 sets, daily range): BP systolic 114–139; BP diastolic 27–57; Ht 172.7 cm; Wt 68.0 kg
[2016-10-20 06:34] LABS: BASOPHILS 0.1 % (0-2); EOSINOPHILS 0.7 % (0-7); HEMATOCRIT 26.7 % (42.0-54.0); HEMOGLOBIN 8.3 g/dL (13.5-17.5); IMMATURE GRANULOCYTES 0.1 % (0-5); LYMPHOCYTES 4.5 % (15-50); MCH 25.5 pg (26.0-34.0); MCHC 31.1 g/dL (31.0-37.0); MCV 82.2 fL (80.0-100.0); MEAN PLATELET VOLUME 9.9 fL (7.4-10.4); MONOCYTES 9.7 % (2-11); NEUTROPHILS 84.9 % (40-80); PLATELET COUNT 234 10x3/uL (130-400); RBC 3.25 10x6/uL (4.20-6.10); RDW 17.8 % (11.5-14.5); WBC 6.7 10x3/uL (4.8-10.8)
[2016-10-20 06:48] LABS: ANION GAP 23.3 mmol/L (8-16); CARBON DIOXIDE 15.5 mmol/L (21.0-32.0); CREATININE - SERUM 6.7 mg/dL (0.6-1.3); POTASSIUM - SERUM 3.8 mmol/L (3.5-5.1)
--- NOTE | 2016-10-20 07:45 | NUR ---
SLEEPING AT THIS TIME WITH RESPIRATIONS EVEN AND NON LABORED. CALL LIGHT IN REACH, DOOR HALF WAY OPEN. WILL CONTINUE WITH PLAN OF CARE.
--- NOTE | 2016-10-20 09:04 | NUR ---
SCHEDULED MEDICATIONS ADMINISTERED AT THIS TIME. ASSESSMENT PERFORMED PER FLOWSHEET. DRESSING TO RIGHT ELBOW REMAINS C/D/I. PT IS ABLE TO MOVE FINGERS, BUT DOES NOT HAVE ANY PAIN AT THIS TIME. MIRNA MAT ALARM ON AND IN USE. CALL LIGHT IN REACH, WILL CONTINUE WITH PLAN OF CARE.
--- NOTE | 2016-10-20 14:44 | HP ---
PATIENT: DEVAUGHN LLAMAS MEDICAL RECORD: [id number] ACCOUNT: [id number] LOCATION:[facility] : 34 ADMISSION DATE: 10/19/16 HISTORY AND PHYSICAL EXAMINATION REASON FOR ADMISSION: Right olecranon abscess and cellulitis. HISTORY OF PRESENT ILLNESS: The patient is an 81-year-old male with history of chronic renal insufficiency, multiple hypertension and diabetes mellitus on insulin pump, who had fall approximately a week ago on the floor at home. He had scraped his right forearm and denuded some of the skin. He had been on oral clindamycin for the last 4 days with daily dressing changes by home health. He noticed increasing swelling in his left elbow yesterday and came to the office this morning. He has not had fever, but he had obvious olecranon effusion which was warm to the touch. This was clean sterilely and under local anesthesia, 20 cc of tona pink pus was aspirated. This was cultured. The patient was recommended for getting counseled on IV antibiotics. I spoke with Dr. Waggoner in ortho as well as Dr. Mitchell from Renal who recommended getting 1 gram of vancomycin preoperatively. The patient has had no nausea or vomiting, but was somewhat presyncopal in the office. PAST MEDICAL HISTORY: Other past history of diabetes mellitus on insulin pump. Stage IV chronic renal insufficiency, average creatinine is approximately 5. Severe hypertension, coronary artery disease with cardiac stent placed on June 2016, hypothyroidism, history of adverse reaction to general anesthesia with hypertension, osteoarthritis, cholelithiasis, hyperlipidemia, diverticulitis, history of lower GI bleeding from diverticulitis. PTCA of the RCA on 07/31/2016 with Integrity stent, and postoperative hematoma in his right groin. PAST SURGICAL HISTORY: He had left elbow surgery, cataract excision, right eye, arthroscopy of his knee, cataract surgery on his left eye, fistula placed in his left forearm. FAMILY HISTORY: Parents both had hypertension and are . SOCIAL HISTORY: He is with his and he lives independently. HOME MEDICATIONS: Minoxidil 2.5 mg p.o. q.a.m., hydralazine 50 mg p.o. b.i.d., metolazone 2.5 mg p.o. daily, losartan 50 mg p.o. at bedtime. NovoLog 100 mL pump as directed, continuous. Clonidine 0.1 mg p.o. p.r.n. systolic blood pressure greater than 180/100, amlodipine 5 mg one half tab b.i.d., Procrit 2000 units subq weekly, tamsulosin 0.4 mg p.o. evening meal, vitamin B12 1000 mcg subq monthly, Tums 500 mg 4 tabs daily, aspirin 81 mg daily, TriCor 145 mg daily, Ocuvite 4 times daily, levothyroxine 50 mcg p.o. q.a.m. before meal, calcitriol 0.25 daily, melatonin 6 mg p.r.n. h.s. for sleep, Megace 40 mg p.o. daily, stool softener 100 mg p.o. with meals, Zofran 8 mg p.r.n. nausea, Lomotil 1 q.6 hours p.r.n. diarrhea, doxazosin 1 mg p.o. at bedtime, famotidine 20 mg p.o. at bedtime. ALLERGIES: PENICILLIN, SQUASH AND GREYSON INHIBITORS. REVIEW OF SYSTEMS: GENERAL: He has felt fatigued, but no fever. HEENT: No visual change, sinus congestion or sore throat. He has some hearing HISTORY AND PHYSICAL [id number] DEVAUGHN LLAMAS. RESPIRATORY: No severe cough. CARDIAC: No chest pain or claudication. GASTROINTESTINAL: No nausea, vomiting, change in stools or blood per rectum. GENITOURINARY: There is nocturia once nightly. ENDOCRINE: Denies polyuria, polydipsia, heat or cold intolerance. INTEGUMENT: Inflammation and superficial infection of his right forearm from abrasion, now with right olecranon abscess. This is somewhat painful he states. NEUROLOGIC: Some syncopal episodes, non-diagnosed. He denies history of seizures or vascular headaches. PSYCHIATRIC: Denies depressed mood. PHYSICAL EXAMINATION: VITAL SIGNS: Temperature of 98.1 Fahrenheit orally, pulse 64 and regular, respirations are 16, blood pressure 170/80, sat 98% on room air. HEENT: Normocephalic. Eyes are clear with lens implants. Sclerae nonicteric. Oropharynx unremarkable. NECK: Supple, without bruits or masses. CHEST: Clear. HEART: Regular rate. ABDOMEN: Soft and nontender. EXTREMITIES: Shows a right forearm in a wound dressing with superficial excoriations. He has a decompressed right olecranon effusion after drainage of 20 cc of tona pus in the office. There is erythema extending from the elbow to the mid bicep, tricep. No axillary adenopathy is appreciated. Lower extremities show no edema. He has a fistula in his left forearm. NEUROLOGIC: Oriented to person, place, and time. Gait was not tested. No localizing neurological deficits were appreciated. GENITOURINARY: Deferred. LABORATORY DATA: White count of 8300 with left shift. H&H is 9.1 and 28.8, platelet count 228,000. Sed rate of 43. Chemistry: Sodium 134, BUN and creatinine is 84 and 6.6, glucose is 131. Liver functions are normal. DIAGNOSTIC DATA: X-ray of the right elbow 2 days ago did not show evidence of fracture, current x-ray is pending. ASSESSMENT: 1. Right olecranon abscess. 2. Right forearm cellulitis. 3. Kuhfo-ew-xfyexus renal insufficiency stage V. 4. Anemia of chronic disease. 5. Coronary artery disease, post-RCA stent in July of 2016, multiple essential hypertension, diabetes mellitus on insulin pump. PLAN: I discussed with both Dr. Waggoner and Dr. Mitchell. He will be evaluated preoperatively by anesthesia. He has had a history of general anesthesia hypertension; therefore, we will help to do a local block for anesthesia. We will hold insulin pump at this time. TRANSINT:[id number] Voice Confirmation ID: [id number] DOCUMENT ID: [id number] HISTORY AND PHYSICAL [id number] DEVAUGHN LLAMAS TIMOTHY MD at 1444 CC: [id number] DICTATION DATE: 10/19/16 1351 SHAREPOINT APPLICATION ARCHITECT: 10/20/16 1227 ADM IN [place] [id number] [place] [address]
--- NOTE | 2016-10-20 14:50 | NUR ---
IV FLUIDS INITIATED PER ORDER FROM DR CRUZ. REMAINS AT BEDSIDE. WILL CONTINUE WITH PLAN OF CARE.
--- NOTE | 2016-10-20 21:48 | NUR ---
REC'D PATIENT SITTING UP IN BED. ALERT AND ORIENTED X4. DENIES PAIN AT THIS TIME. NO DISTRESS NOTED. POST TENSIONING IRONWORKER HELPER WAS IN THE ROOM TAKING BP AND IT WAS 115/42. HAS BP MEDS FOR PM ADMIN. CALLED OVER TO MED 2 AND TALKED TO KG AND SHE TOLD ME TO HOLD THE APPRESOLINE, NORVASC, AND COZAAR, AND GIVE THE CARDURA BC OF THE CHRONIC KIDNEY DISEASE. ADMINISTERED HIS MEDS ACCORDING TO THAT AND WILL CONT TO MONITOR THROUGHOUT THE NIGHT. DENIED FURTHER NEEDS AT THIS TIME. BED LOW, LOCKED CALL LIGHT IN REACH. FAMILY IS AT BEDSIDE.
[2016-10-21] VITALS: BP 127/33
--- NOTE | 2016-10-21 01:35 | NUR ---
RESTING WITH EYES CLOSED, NO DISTRESS NOTED, FALL PRECAUTIONS IN PLACE, CL IN REACH
--- NOTE | 2016-10-21 03:23 | NUR ---
PATIENT IS RESTING IN BED. NO DISTRESS NOTED. WILL CONT TO MONITOR. BED LOW, LOCKED, CALL LIGHT IN REACH. FAMILY IS AT BEDSIDE.
[2016-10-21 04:00] VITALS: BP 142/39
[2016-10-21 06:13] LABS: BASOPHILS 0.2 % (0-2); EOSINOPHILS 2.9 % (0-7); HEMATOCRIT 26.5 % (42.0-54.0); HEMOGLOBIN 8.3 g/dL (13.5-17.5); IMMATURE GRANULOCYTES 0.3 % (0-5); LYMPHOCYTES 6.7 % (15-50); MCH 25.7 pg (26.0-34.0); MCHC 31.3 g/dL (31.0-37.0); MEAN PLATELET VOLUME 9.5 fL (7.4-10.4); MONOCYTES 8.4 % (2-11); NEUTROPHILS 81.5 % (40-80); PLATELET COUNT 257 10x3/uL (130-400); RBC 3.23 10x6/uL (4.20-6.10); RDW 17.8 % (11.5-14.5); WBC 6.3 10x3/uL (4.8-10.8)
[2016-10-21 06:25] LABS: % SATURATION 19 % (15-55); IRON 42 ug/dl (35-150); TOTAL IRON BIND CAPACITY 214 ug/dl (260-445); UNSAT IRON BIND CAPACITY 172 ug/dl (150-375)
[2016-10-21 06:46] LABS: ANION GAP 17.1 mmol/L (8-16); CALCIUM 7.9 mg/dL (8.5-10.1); CARBON DIOXIDE 18.4 mmol/L (21.0-32.0); CREATININE - SERUM 6.4 mg/dL (0.6-1.3); MAGNESIUM - SERUM 2.2 mg/dL (1.8-2.4); PHOSPHOROUS 5.1 mg/dL (2.5-4.9); POTASSIUM - SERUM 3.5 mmol/L (3.5-5.1); VANCOMYCIN - RANDOM 7.4 ug/mL (10.0-20.0)
--- NOTE | 2016-10-21 07:40 | NUR ---
PATIENT RECEIVED ALERT IN MID MORRIS POSITION. RESPIRATIONS EVEN AND UNLABORED. SIDE RAILS UP X2. BED IN LOW POSITION. CALL LIGHT IN REACH. FAMILY AT BEDSIDE.
[2016-10-21 08:23] VITALS: BP 139/40
--- NOTE | 2016-10-21 09:07 | NUR ---
PATIENT ALERT IN BED. NO SIGNS OF DISTRESS NOTED. SCHEDULED MEDICATION ADMINISTERED. FAMILY PRESENT. DENIES NEEDS. SIDE RAILS UP X2. BED IN LOW POSITION. CALL LIGHT IN REACH.
--- NOTE | 2016-10-21 12:26 | NUR ---
ACCU CHECK 264. INSULIN PER SLIDING SCALE. DENIES NEEDS. FAMILY AT BEDSIDE. SIDE RAILS UP X2. BED IN LOW POSITION. CALL LIGHT IN REACH
[2016-10-21 12:42] VITALS: BP 122/42
--- NOTE | 2016-10-21 14:30 | NUR ---
PATIENT IN LOW MORRIS POSITION RESTING WITH EYES CLOSED. RESPIRATIONS EVEN AND UNLABORED. SIDE RAILS UP X2. BED IN LOW POSITION. CALL LIGHT IN REACH. FAMILY PRESENT.
--- NOTE | 2016-10-21 16:48 | NUR ---
ALERT IN BED. ACCU CHECK 250. INSULIN PER SLIDING SCALE. ULTRAM PER PRN ORDER. DENIES NEEDS. SIDE RAILS UP X2. BED IN LOW POSITION. CALL LIGHT IN REACH.
[2016-10-21 17:04] VITALS: BP 115/38
--- NOTE | 2016-10-21 18:00 | NUR ---
PACKING TO RIGHT ELBOW REMOVED PER ORDER. NO REDNESS, DRAINAGE OR ODOR NOTED TO SITE. COVERED WITH ADAPTIC AND 4X4. WRAPPED WITH KERLEX AND GREYSON. PROPPED ON PILLOW. SIDE RAILS UP X2. BED IN LOW POSITION. CALL LIGHT IN REACH. FAMILY PRESENT.
--- NOTE | 2016-10-21 21:48 | NUR ---
REC'D PATIENT LYING IN BED. ALERT AND ORIENTED X4. DENIED PAIN AT THIS TIME. STATED HE WAS COLD, BROUGHT HIM A WARM BLANKET. ADMINISTERED NIGHT MEDS PRESCRIBED. WILL CONT TO MONITOR. HELD ALL BP MEDS EXCEPT FOR THE CADURA. BP WAS 111/55. WILL CONT TO MONITOR THROUGHOUT NIGHT. DENIED FURTHER NEEDS AT THIS TIME. INSTRUCTED TO CALL IF NEEDED ANYTHING. BED LOW, LOCKED, CALL LIGHT IN REACH, ALARM ON.
[2016-10-21 23:24] VITALS: BP 111/58
[2016-10-22 04:00] VITALS: BP 137/31
--- NOTE | 2016-10-22 04:49 | NUR ---
PATIENT RESTING WITH EYES CLOSED. NO VISIBLE SIGNS OF DISTRESS. BED IN LOWEST POSITION AND CALL LIGHT WITHIN REACH.
--- NOTE | 2016-10-22 06:28 | NUR ---
PATIENT IS RESTING IN BED. NO DISTRESS NOTED. DENIED PAIN AT THIS TIME. ADMIN AM MEDS PRESCRIBED. DENIED FURTHER NEEDS AT THIS TIME. INSTRUCTED TO CALL IF NEEDED ANYTHING. BED LOW, LOCKED, CALL LIGHT IN REACH.
[2016-10-22 07:56] LABS: ANION GAP 18.3 mmol/L (8-16); CALCIUM 7.8 mg/dL (8.5-10.1); CARBON DIOXIDE 18.2 mmol/L (21.0-32.0); CREATININE - SERUM 5.9 mg/dL (0.6-1.3); PHOSPHOROUS 4.6 mg/dL (2.5-4.9); POTASSIUM - SERUM 3.5 mmol/L (3.5-5.1); VANCOMYCIN - RANDOM 6.4 ug/mL (10.0-20.0)
--- NOTE | 2016-10-22 08:30 | NUR ---
ASSESMENT PER FLOW SHEET.PT WITHOUT DISTRESS.CALL LIGHT IN REACH.
[2016-10-22 08:40] VITALS: BP 118/44
[2016-10-22 09:23] LABS: BASOPHILS 0.1 % (0-2); EOSINOPHILS 1.7 % (0-7); HEMATOCRIT 27.4 % (42.0-54.0); HEMOGLOBIN 8.5 g/dL (13.5-17.5); IMMATURE GRANULOCYTES 0.1 % (0-5); LYMPHOCYTES 3.3 % (15-50); MCH 25.5 pg (26.0-34.0); MCV 82.3 fL (80.0-100.0); MEAN PLATELET VOLUME 10.2 fL (7.4-10.4); MONOCYTES 8.6 % (2-11); NEUTROPHILS 86.2 % (40-80); PLATELET COUNT 288 10x3/uL (130-400); RBC 3.33 10x6/uL (4.20-6.10); WBC 9.5 10x3/uL (4.8-10.8)
--- NOTE | 2016-10-22 12:30 | NUR ---
REMAINS WIHTOUT NEEDS. AT BEDSIDE.CALL LIGHT IN REACH
[2016-10-22 12:44] VITALS: BP 114/39
--- NOTE | 2016-10-22 13:55 | NUR ---
Rehab Note- Acute Rehab Prescreen order received. The patient is [facility] and requires a Pre Auth prior to acute rehab stay. Will begin Pre Auth process. Thank you for this referral! Марина Kenyon RN Clinical Liaison, [facility] Rehab/johnathan
--- NOTE | 2016-10-22 14:30 | NUR ---
DRESSING CHANGE TO RIGHT ELBOW.ASEPTIC TECH USED.PT TOLERATED WELL.
[2016-10-22 16:53] VITALS: BP 135/39
--- NOTE | 2016-10-22 17:24 | NUR ---
DR Waggoner spoke with Lot Technician on rounds at 1500 today. He stated he would like a rehab consult w/ admission to rehab today. The screener was telephoned. The patient is a managed care subscriber and therefore will require a preauthorization. Patient also needed an evaluation by physical therapy which was ordered and completed today.
[2016-10-22 19:00] VITALS: BP 108/40
--- NOTE | 2016-10-22 20:41 | NUR ---
REC'D PATIENT LYING DOWN IN BED. NO DISTRESS NOTED. ALERT AND ORIENTED X4. DENIED PAIN AT THIS TIME. WILL ADMINISTER PM MEDS PRESCRIBED. DENIED FURTHER NEEDS AT THIS TIME. HELD BP MEDS DUE TO BP BEING 115/39, WILL REPORT TO THE AM NURSE. BED LOW, LOCKED, CALL LIGHT IN REACH, ALARM ON.
[2016-10-23 04:00] VITALS: BP 140/44
--- NOTE | 2016-10-23 04:52 | NUR ---
EYES CLOSED RESPIRATIONS WITH EASE AND UNLABORED.SR UP X2 CALL LIGHT WITHIN REACH.
--- NOTE | 2016-10-23 04:55 | NUR ---
RESTING QUIETLY RESPIRATIONS WITH EAE AND UNLABORED.
[2016-10-23 05:48] LABS: BASOPHILS 0.1 % (0-2); EOSINOPHILS 4.8 % (0-7); HEMOGLOBIN 8.7 g/dL (13.5-17.5); IMMATURE GRANULOCYTES 0.3 % (0-5); LYMPHOCYTES 4.8 % (15-50); MCH 25.5 pg (26.0-34.0); MCHC 31.1 g/dL (31.0-37.0); MCV 82.1 fL (80.0-100.0); MEAN PLATELET VOLUME 10.2 fL (7.4-10.4); PLATELET COUNT 301 10x3/uL (130-400); RBC 3.41 10x6/uL (4.20-6.10); RDW 17.7 % (11.5-14.5); WBC 8.8 10x3/uL (4.8-10.8)
[2016-10-23 06:16] LABS: ANION GAP 18.5 mmol/L (8-16); CARBON DIOXIDE 16.1 mmol/L (21.0-32.0); CREATININE - SERUM 5.8 mg/dL (0.6-1.3); POTASSIUM - SERUM 3.6 mmol/L (3.5-5.1); VANCOMYCIN - RANDOM 5.4 ug/mL (10.0-20.0)
--- NOTE | 2016-10-23 07:20 | NUR ---
PATIENT RECEIVED ALERT IN HIGH MORRIS POSITION WITH FAMILY PRESENT. NO SIGNS OF DISTRESS NOTED. DENIES NEEDS. SIDE RAILS UP X2. BED IN LOW POSITION. CALL LIGHT IN REACH.
[2016-10-23 08:32] VITALS: BP 154/51
--- NOTE | 2016-10-23 08:54 | NUR ---
PATIENT ALERT IN HIGH MORRIS POSITION. NO SIGNS OF DISTRESS. SCHEDULED MEDICATION ADMINISTERED. SIDE RAILS UP X2. BED IN LOW POSITION. CALL LIGHT IN REACH. DENIES NEEDS.
--- NOTE | 2016-10-23 10:14 | NUR ---
SITTING UP IN CHAIR AT BEDSIDE. NO SIGNS OF DISTRESS NOTED. FAMILY PRESENT. CALL LIGHT IN REACH.
--- NOTE | 2016-10-23 10:30 | NUR ---
DIRECTOR TRADING REPORTS 142 UNCONTROLLED AFIB WITH FLUTTER ON TELEMETRY AND PATIENT HAS BEEN NORMAL SINUS RHYTHM. DR FRYE NOTIFIED. ORDER RECEIVED FOR 10 MEQ KCL RIDER X1 AND TO CONSULT CARDIOLOGY IF NOT CONVERTED BACK IN AN HOUR.
--- NOTE | 2016-10-23 11:11 | NUR ---
Rehab Note- Have started PreAuth process for acute rehab stay. Reference #[id number]. Awaiting call for clinicals to be faxed. Will continue to follow the patient at this time. Марина Kenyon RN Clinical Liaison, [facility] Rehab/Nithin
--- NOTE | 2016-10-23 11:20 | NUR ---
ALERT IN BED WITH FAMILY PRESENT. NO SIGNS OF DISTRESS NOTED. ACCU CHECK 207. INSULIN PER SLIDING SCALE. SIDE RAILS UP X2. BED IN LOW POSITION. CALL LIGHT IN REACH.
--- NOTE | 2016-10-23 11:50 | NUR ---
TECHNICAL STAFF ENGINEER REPORTS 98 NORMAL SINUS RHYTHM
[2016-10-23 12:51] VITALS: BP 126/32
--- NOTE | 2016-10-23 13:55 | NUR ---
Rehab Note- Received notification from Gabby with [facility] that the patient has been denied an acute rehab stay. Peer to Peer can be done [phone]. Spoke with MEGAN Corey stated she would speak to the patient and . Thank you for this referral! Марина Kenyon RN Clinical Liaison, [facility] Rehab/Nithin
--- NOTE | 2016-10-23 14:40 | NUR ---
ALERT IN BED. NO SIGNS OF DISTRESS NOTED. AT BEDSIDE. SCHEDULED MEDICATION ADMINISTERED. SIDE RAILS UP X2. BED IN LOW POSITION. CALL LIGHT IN REACH. DENIES NEEDS.
--- NOTE | 2016-10-23 17:15 | NUR ---
ACCU CHECK 185. INSULIN PER SLIDING SCALE. SIDE RAILS UP X2. BED IN LOW POSITION. CALL LIGHT IN REACH. PRESENT.
[2016-10-23 20:00] VITALS: BP 107/32
--- NOTE | 2016-10-23 20:00 | NUR ---
ASSESSMENT PER FLOWSHEET. IV PATENT RT IJ OF NS AT 100CC'S/HR SITE CLEAR. FAMILY IN ROOM. SR UP X2 CALL LIGHT WITHIN REACH. TELM. SHOWS SR WITH HR 95. DRESSING TP RT ELBOW INCISIONAL AREA C/D/I. VOIDS IN URINAL.RESERVE LEFT ARM.
--- NOTE | 2016-10-23 21:00 | NUR ---
MEDS GIVEN PER MAR. UMCC=223. HUMALOG INSULIN 2 UNITS GIVEN PER S/S
--- NOTE | 2016-10-24 | NUR ---
EYES CLOSED RESPIRATIONS WITH EASE AND UNLABORED.
--- NOTE | 2016-10-24 01:14 | NUR ---
VOIDS IN URINAL.
[2016-10-24 04:00] VITALS: BP 92/51
[2016-10-24 05:22] LABS: BASOPHILS 0.1 % (0-2); EOSINOPHILS 6.3 % (0-7); HEMATOCRIT 30.2 % (42.0-54.0); HEMOGLOBIN 9.2 g/dL (13.5-17.5); IMMATURE GRANULOCYTES 0.3 % (0-5); LYMPHOCYTES 3.8 % (15-50); MCH 24.9 pg (26.0-34.0); MCHC 30.5 g/dL (31.0-37.0); MCV 81.8 fL (80.0-100.0); NEUTROPHILS 82.5 % (40-80); PLATELET COUNT 331 10x3/uL (130-400); RBC 3.69 10x6/uL (4.20-6.10); RDW 17.9 % (11.5-14.5); WBC 8.7 10x3/uL (4.8-10.8)
[2016-10-24 05:39] LABS: ANION GAP 18.8 mmol/L (8-16); CALCIUM 8.1 mg/dL (8.5-10.1); CARBON DIOXIDE 15.1 mmol/L (21.0-32.0); CREATININE - SERUM 5.7 mg/dL (0.6-1.3); POTASSIUM - SERUM 3.9 mmol/L (3.5-5.1); VANCOMYCIN - RANDOM 4.4 ug/mL (10.0-20.0)
--- NOTE | 2016-10-24 06:15 | NUR ---
MEDS GIVEN PER JUL. GLUCOSE =112. NO COVERAGE NEEDED.
--- NOTE | 2016-10-24 07:05 | NUR ---
PATIENT RECEIVED ALERT IN MID MORRIS POSITION. NO SIGNS OF DISTRESS NOTED. REPOSITIONED IN BED. SIDE RAILS UP X2. BED IN LOW POSITION. CALL LIGHT IN REACH.
[2016-10-24 08:06] VITALS: BP 126/49
--- NOTE | 2016-10-24 08:40 | NUR ---
ALERT IN BED. TOLERATING BREAKFAST WITHOUT DIFFICULTY. SCHEDULED MEDICATION ADMINISTERED. RIGHT IJ SALINE LOCKED PER ORDERS. AT BEDSIDE. SIDE RAILS UP X2. BED IN LOW POSITION. CALL LIGHT IN REACH.
--- NOTE | 2016-10-24 10:25 | NUR ---
PATIENT SITTING UP IN CHAIR ALERT. NO SIGNS OF DISTRESS NOTED. DRESSING TO RIGHT IJ CHANGED USING STERILE TECHNIQUE. NO REDNESS, INFLAMMATION OR DRAINAGE NOTED TO SITE. CENTRAL LINE DRESSING KIT USED. NEW BIOPATCH AND DRESSING APPLIED. SWAB CAPS IN PLACE. WELL TOLERATED.
--- NOTE | 2016-10-24 11:56 | NUR ---
ACCU CHECK 188. INSULIN PER SLIDING SCALE. DENIES NEEDS. FAMILY PRESENT. SIDE RAILS UP X2. BED IN LOW POSITION. CALL LIGHT IN REACH.
[2016-10-24 12:48] VITALS: BP 136/64
--- NOTE | 2016-10-24 14:02 | NUR ---
ALERT IN BED WITH PRESENT. NO SIGNS OF DISTRESS NOTED. SCHEDULED MEDICATION ADMINISTERED. SIDE RAILS UP X2. BED IN LOW POSITION. CALL LIGHT IN REACH.
--- NOTE | 2016-10-24 14:51 | NUR ---
CM note: Pt was denied at [facility], family informed. Patient would like to go down stairs to [facility] IN patient rehab and will private pay. Марина notified Jazzy Romero RN
[2016-10-24] MEDS ORDERED: ROCALTROL0.25 MCG PO (15:32)
[2016-10-24] MEDS ORDERED: COLACE100 MG PO (15:43)
[2016-10-24] MEDS ORDERED: PROCRIT/EP4000 UNITS SQ (15:44)
[2016-10-24] MEDS ORDERED: LASIX40 MG PO (15:45)
[2016-10-24] MEDS ORDERED: HUMALOG 30100 UNITS/ SC (15:47)
[2016-10-24] MEDS ORDERED: LEVAQUIN250 MG PO (15:48)
--- NOTE | 2016-10-24 15:48 | NUR ---
Patient Name: DEVAUGHN LLAMAS Admission Status: Urgent Accout number: [id number] Admission Date: 10-19-2016 : 1934 Admission Diagnosis:ABSCESS OF BURSA, RIGHT ELBOW Attending: MARCY Current LOS: 5 Anticipated DC Date: 10-24-2016 Planned Disposition: Inpatient Rehab Primary Insurance: [facility] Discharge Planning Comments: CM MET WITH PATIENT AND (EMILIE) REGARDING D/C NEEDS AND PLANS. PATIENT STATED HE LIVES WITH HIS AND THEIR HOME IS SAFE. PATIENT HAS A WALKER, CANE, BUILT IN SHOWER CHAIR, AND HAS AN INSULIN PUMP. PATIENT IS CURRENT WITH [employer]. PATIENTS PCP IS DR. FRYE AND PHARMACY IS [phone]. PATIENT WILL GO TO REHAB TODAY AND WILL BE PRIVATE PAY. CM WILL CONTINUE TO FOLLOW PATIENT WITH D/C NEEDS AND PLANS. PCP DR. FRYE [facility]- [phone] EMILIE () [phone] CELL [phone] Septic Tank Servicer: Leora Gutierrez Is the patient Alert and Oriented? Yes 0 * PCP DR. FRYE 0 * Pharmacy [facility] 0 * Preadmission Environment Home with Family 0 * ADLs Independent 0 * Equipment Cane Glucometer Walker 0 * Other Equipment INSULIN PUMP 0 * List name and contact numbers for known caregivers / representatives who currently or will assist patient after discharge: EMILIE () [phone] CELL [phone] * Community resources currently utilized Home Health 0 * Please name any agencies selected above. [facility] 0 * Additional services required to return to the preadmission environment? Yes 0 * Can the patient safely return to the preadmission environment? Yes 0 * Has this patient been hospitalized within the prior 30 days at any hospital? No 0 Grand Total: 0
[2016-10-24 16:02] VITALS: BP 123/58
[2016-10-24] MEDS ORDERED: SODIUM BICARBO325 MG PO (16:12)
[2016-10-24] MEDS ORDERED: FLORAJEN3 CAPS460 MG PO (16:12)
--- NOTE | 2016-10-24 16:30 | NUR ---
OT NOTE: PT COMPLETED RUE HAND EXERCISES AND POSITIONING TO REDUCE EDEMA. THANK YOU, JESSICA JANSEN/Imelda
--- NOTE | 2016-10-24 16:45 | NUR ---
Recieved a call from the patient's CM Leora Knight RN re IRF for this patient. The patient and his know he has been denied by his insurance [facility] for IRF, but he still wants to come to rehab for therapy as a private pay patient. Tanika Hernandez in the business office has been notified. Tanika will meet with the patient and his reguarding a payment plan. Bia Abdullahi RN Clinical Liaison, Rehab
--- NOTE | 2016-10-24 16:50 | NUR ---
ACCU CHECK 209. INSULIN PER SLIDING SCALE. DENIES NEEDS. SIDE RAILS UP X2. BED IN LOW POSITION. CALL LIGHT IN REACH.
--- NOTE | 2016-10-24 18:15 | NUR ---
REPORT CALLED TO REHAB. BRI BELLO RECEIVED REPORT
--- NOTE | 2016-10-24 18:35 | NUR ---
PATIENT TRANSFERRED TO [facility] VIA WHEELCHAIR.
--- NOTE | 2016-11-09 15:24 | OP ---
PATIENT NAME: DEVAUGHN LLAMAS MEDICAL RECORD: [id number] :33 LOCATION:[id number] ADMISSION DATE:10/19/16 SURGEON: ÁLVARO FLORES MD DATE OF OPERATION: 10/19/2016 Orthopedic Surgery Operative Note PREOPERATIVE DIAGNOSIS: Septic olecranon bursitis. POSTOPERATIVE DIAGNOSIS: Septic olecranon bursitis. PROCEDURE: Excisional debridement of septic olecranon bursitis to include skin, subcutaneous tissue, portions of fat, fascia, and muscle. SURGEON: Álvaro Flores MD ANESTHESIA: General. INTRAOPERATIVE COMPLICATIONS: None. SUMMARY OF PATHOLOGIC FINDINGS: Unfortunately, upon debriding this, the patient had purulent material running into the planes of the skin, muscle, fascial plane as well as purulent material in the entire olecranon bursa distally. OPERATIVE SUMMARY IN DETAIL: After obtaining the appropriate preoperative orthopedic surgery consent as well as anesthetic consultation, evaluation and clearance, the patient was brought to the operating room and placed on the operating table in supine position. After general laryngeal mask was administered, the patient's right upper extremity was prepped and draped in routine sterile fashion. Incision was made over the septic olecranon bursa with immediate purulent fluid. This was cultured. At this point, the incision was carried across the entire olecranon bursa. Serial and sequential debridement was done using curettes, rongeurs as well as a scalpel to remove infected appearing bursal material. The incision as well as operative exploration was carried slightly up the back of the humerus where substantial amounts of purulent material was milked down from the inner fascial planes. Copious irrigation of both this and the distal aspect was then followed by further sharp debridement. After I felt that all the purulence that was possible had been removed or irrigated away, the area was packed with a 1/2 inch iodoform gauze. Sterile dressings were applied. The patient was then awakened, taken to recovery room in stable condition. All final needle and sponge counts were correct. TRANSINT:[id number] Voice Confirmation ID: [id number] DOCUMENT ID: [id number] ÁLVARO FLORES MD at 1524 CC: [id number] DICTATION DATE: 11/08/16 1350 TRAY FILLER: 11/09/16 0058 DIS IN 10/24/16 [facility] [address] [place] [address]
== END 2016-10-24 18:41 | DRG 464 ==
LOC: D.SDCHOLD 10:16 → D.MS 10:16
PROVIDERS: Internal Medicine; Orthopaedic Surgery; ADMIT Family Medicine
PROC: 0JBG0ZZ Excision of Right Lower Arm Subcutaneous Tissue and Fascia, Open Approach (ICD-10-PCS; principal; 2016-10-19 15:15)
DX: M71.021 Abscess of bursa, right elbow (principal); I12.0 Hypertensive chronic kidney disease with stage 5 chronic kidney disease or end stage renal disease; N18.5 Chronic kidney disease, stage 5; N17.9 Acute kidney failure, unspecified; D63.1 Anemia in chronic kidney disease; I25.10 Atherosclerotic heart disease of native coronary artery without angina pectoris; K80.20 Calculus of gallbladder without cholecystitis without obstruction; Z86.73 Personal history of transient ischemic attack (TIA), and cerebral infarction without residual deficits; E11.22 Type 2 diabetes mellitus with diabetic chronic kidney disease; I48.0 Paroxysmal atrial fibrillation

== ENCOUNTER 2016-10-24 19:09 | Inpatient (IN) | payer OTHER ==
[~2016-10-24] VITALS: Ht 172.7 cm; Wt 72.7 kg
--- NOTE | 2016-10-24 18:35 | NUR ---
RECIEVED ON REHAB UNIT/WC;ROOM 1110.CL IN REACH.
[~2016-10-24 19:09] MED LIST changes: +BAYER CHEWABLE81 MG PO; +COLACE100 MG PO; +FLOMAX0.4 MG PO; +FLORAJEN3 CAPS460 MG PO; +HUMALOG 30100 UNITS/ SC; +HYDRALAZINE HCL50 MG PO; +LASIX40 MG PO; +LEVAQUIN250 MG PO; +MEGACE40 MG PO; +NOVOLOG100 U/M1 SQ; +PEPCID AC20 MG PO; +PROCRIT/EP20000 UNIT SQ; +PROCRIT/EP4000 UNITS SQ; +ROCALTROL0.25 MCG PO; +SODIUM BICARBO325 MG PO; +TERAZOSIN HCL2 MG PO; +VITAMIN B-1000 MCG/M; +ZOFRAN8 MG
--- NOTE | 2016-10-24 19:10 | NUR ---
PATIENT AWAKE. INTRODUCED MYSELF TO PATIENT AND INFORMED HIM THAT I WILL BE SPENDING THE NEXT HOUR VERIFYING HIS MED ORDERS. VERIFIED HE HAS NO CURRENT NEEDS.
--- NOTE | 2016-10-24 20:30 | NUR ---
PATIENT AWAKE. IN BED. VISITING AT BEDSIDE.
--- NOTE | 2016-10-24 23:20 | NUR ---
GAVE PATIENT SCHEDULED HS MEDS AFTER RE-CHECKING LEFT LE BLOOD PRESSURE (142/44). HELD SCHEDULED HYDRALAZINE DUE TO LOW DBP. FLUSHED RIGHT JUGULAR CVL. ALL PORTS PATENT BI-DIRECTIONALLY. CONTINUING WITH ADMISSION ASSESSMENT.
--- NOTE | 2016-10-25 00:10 | NUR ---
ADMISSION ASSESSMENT AHD HISTORY COMPLETE. ADMISSION DOCUMENTS SIGNED. PATIENT DENIES CURRENT NEEDS.
--- NOTE | 2016-10-25 01:55 | NUR ---
PATIENT AWAKE. JUST USED URINAL. EMPTIED 100ML PALE YELLOW URINE FROM BEDSIDE URINAL.
[2016-10-25 03:50] LABS: BASOPHILS 0.1 % (0-2); EOSINOPHILS 6.2 % (0-7); HEMATOCRIT 29.4 % (42.0-54.0); HEMOGLOBIN 9.2 g/dL (13.5-17.5); IMMATURE GRANULOCYTES 0.4 % (0-5); LYMPHOCYTES 4.7 % (15-50); MCH 25.4 pg (26.0-34.0); MCHC 31.3 g/dL (31.0-37.0); MCV 81.2 fL (80.0-100.0); MEAN PLATELET VOLUME 9.6 fL (7.4-10.4); MONOCYTES 7.1 % (2-11); NEUTROPHILS 81.5 % (40-80); PLATELET COUNT 321 10x3/uL (130-400); RBC 3.62 10x6/uL (4.20-6.10); RDW 18.2 % (11.5-14.5); WBC 8.3 10x3/uL (4.8-10.8)
[2016-10-25 03:58] LABS: ANION GAP 17.2 mmol/L (8-16); CALCIUM 8.3 mg/dL (8.5-10.1); CARBON DIOXIDE 16.7 mmol/L (21.0-32.0); CREATININE - SERUM 5.9 mg/dL (0.6-1.3); POTASSIUM - SERUM 3.9 mmol/L (3.5-5.1)
--- NOTE | 2016-10-25 04:00 | NUR ---
RESTING QUIETLY AFTER BEING CLEANSED FROM SMALL LIQUID STOOL INCONTINENCE. CHANGED PINK AND BLUE PADS. APPLIED BUTT PASTE TO <1CM STAGE 2 NOTED OVER COCCYX THAT WAS UNDETECTED ON ASSESSMENT AND PRIOR CLEANSING. APPLIED BUTT PASTE AND TURNED PATIENT TO LEFT SIDELYING POSITION.
--- NOTE | 2016-10-25 04:50 | NUR ---
UNABLE TO OBTAIN PATIENT'S STANDING WEIGHT. SAYS HE CANNOT STAND STABLY ENOUGH ON SCALE WITHOUT SUPPORT WHICH WILL AFFECT THE RESULT.
[2016-10-25 05:42] VITALS: BP 108/75
--- NOTE | 2016-10-25 05:45 | NUR ---
TOOK VS. GAVE PATIENT SCHEDULED LASIX AND SYNTHROID. SAYS HE IS VERY COMFORTABLE ON HIS LEFT SIDE.
--- NOTE | 2016-10-25 06:45 | NUR ---
RESTING QUIETLY IN BED CALL LIGHT IN REACH
--- NOTE | 2016-10-25 09:13 | NUR ---
PT IS RESTING IN BED WITH EYES OPEN. ALERT AND ORIENTED X 4. DENIES ACUTE DISCOMFORT AT THIS TIME. ASSISTED TO USE BEDPAN. SMALL BM NOTED. RADHA CARE GIVEN. BUTT PASTE APPLIED TO DRY SKIN ON COCCYX. DRESSING TO RIGHT ARM IS CDI. SR'S ARE UP X 3 IN BED. CALL LIGHT IS IN EASY REACH. PT USING URINAL PRN. SPOUSE IS AT BEDSIDE.
[2016-10-25 10:47] VITALS: Ht 172.7 cm; Wt 72.7 kg
--- NOTE | 2016-10-25 11:00 | NUR ---
PT GIVEN SHOWER BY OT. DRESSING TO RIGHT ELBOW CHANGED AFTERWARDS PER ORDERS. PT TOLERATED PROCEDURE WELL.
[2016-10-25 11:02] VITALS: BP 119/79
--- NOTE | 2016-10-25 13:15 | NUR ---
PT IS PARTICIPATING IN THERAPY AT THIS TIME.
--- NOTE | 2016-10-25 17:50 | NUR ---
PT IS RESTING IN HIS ROOM WATCHING TV AND VISITING WITH HIS DAUGHTER. NO ACUTE DISTRESS NOTED.
[2016-10-25 18:23] VITALS: BP 113/46
--- NOTE | 2016-10-25 19:00 | NUR ---
IN BED, AWAKE. VISITING AT BEDSIDE.
--- NOTE | 2016-10-25 21:00 | NUR ---
ASSESSMENT AND HS MEDS COMPLETE. FSBS 157. GAVE PATIENT 2 UNITS HUMALOG S/S INSULIN SC IN LUQ ABDOMEN. FLUSHED A 3 LUMENS OF RIGHT JUGULAR CVL AND THEY REMAIN PATENT BIDIRECTIONALLY. APPLIED BUTT PASTE TO SPLIT TO COCCYX--HAS CLOSED UP CONSIDERABLY SINCE EARLY THIS AM.
--- NOTE | 2016-10-25 21:45 | NUR ---
RESTING QUIETLY IN BED, EYES CLOSED.
--- NOTE | 2016-10-26 00:10 | NUR ---
VSS. EMPTIED 100ML FROM URINAL. CONTINUES ON LEFT SIDE FOR PRESSURE RELIEF.
[2016-10-26 00:40] VITALS: BP 143/77
--- NOTE | 2016-10-26 02:20 | NUR ---
RESTING QUIETLY IN BED, EYES CLOSED.
--- NOTE | 2016-10-26 04:20 | NUR ---
BLOOD DRAWN FOR LABS. CVL PORTS FLUSHED.
[2016-10-26 05:32] LABS: CALCIUM 8.2 mg/dL (8.5-10.1); CARBON DIOXIDE 17.8 mmol/L (21.0-32.0); CHOL - HDL RATIO 7.6 ratio (2.3-4.9); CREATININE - SERUM 6.1 mg/dL (0.6-1.3); PHOSPHOROUS 5.2 mg/dL (2.5-4.9); POTASSIUM - SERUM 3.8 mmol/L (3.5-5.1)
[2016-10-26 05:36] VITALS: BP 143/46
--- NOTE | 2016-10-26 05:50 | NUR ---
VS TAKEN AND RECORDED. WIEGHED ON STANDING SCALE AND WAS RETURNED AND POSITIONED IN BED. URINATED ANOTHER 75ML IN URINAL.
--- NOTE | 2016-10-26 07:31 | NUR ---
PT IS RESTING IN BED WITH EYES OPEN. ALERT AND ORIENTED X 4. DENIES ACUTE DISCOMFORT AT THIS TIME. ASSISTED TO REPOSITION IN BED PER HIS REQUEST. RIGHT NECK IV LINE NOTED. SR'S ARE UP X 3 IN BED. CALL LIGHT AND BEDSIDE TABLE ARE WITHIN EASY REACH.
--- NOTE | 2016-10-26 10:03 | NUR ---
PT ASSISTED TO THE BATHROOM BY WILDLIFE AND GAME PROTECTOR. LARGE BM NOTED.
[2016-10-26 12:00] VITALS: BP 143/74
--- NOTE | 2016-10-26 15:41 | NUR ---
PT IS PARTICIPATING IN THERAPY AT THIS TIME.
--- NOTE | 2016-10-26 17:24 | NUR ---
PT IS SITTING IN WC IN HIS ROOM EATING SUPPER. NO SWALLOW PROBLEMS NOTED. NO ACUTE DISTRESS NOTED. SPOUSE IS IN ROOM.
[2016-10-26 18:40] VITALS: BP 198/55
--- NOTE | 2016-10-26 20:00 | NUR ---
EMPTIED PT URINAL OF APPROX 90 CC'S, PT STATES HE IS TIRED, DENIES PAIN. RESPIRATIONS REGULAR AND UNLABORED.
[2016-10-27 00:10] VITALS: BP 112/65
--- NOTE | 2016-10-27 04:10 | NUR ---
PT STATES HE IS SO TIRED, HE STATES HE CAN'T SLEEP LONG BECAUSE HE NEEDS TO URINATE FREQUENTLY. PT REQUESTS URINAL TO BE EMPTIED WITH VARIED AMOUNT THAT DOESN'T EXCEED 150 CC, APPROXIMATELY EVERY 1-2 HOURS.
[2016-10-27 06:22] VITALS: BP 116/44
[2016-10-27 06:51] LABS: BASOPHILS 0.1 % (0-2); EOSINOPHILS 4.8 % (0-7); HEMATOCRIT 30.8 % (42.0-54.0); HEMOGLOBIN 9.7 g/dL (13.5-17.5); IMMATURE GRANULOCYTES 0.3 % (0-5); LYMPHOCYTES 7.5 % (15-50); MCH 25.5 pg (26.0-34.0); MCHC 31.5 g/dL (31.0-37.0); MCV 80.8 fL (80.0-100.0); MONOCYTES 6.4 % (2-11); NEUTROPHILS 80.9 % (40-80); PLATELET COUNT 367 10x3/uL (130-400); RBC 3.81 10x6/uL (4.20-6.10); RDW 18.5 % (11.5-14.5); WBC 9.9 10x3/uL (4.8-10.8)
[2016-10-27 07:01] LABS: ANION GAP 18.9 mmol/L (8-16); CALCIUM 8.2 mg/dL (8.5-10.1); CARBON DIOXIDE 17.8 mmol/L (21.0-32.0); CREATININE - SERUM 6.6 mg/dL (0.6-1.3); PHOSPHOROUS 5.4 mg/dL (2.5-4.9); POTASSIUM - SERUM 3.7 mmol/L (3.5-5.1)
--- NOTE | 2016-10-27 07:07 | NUR ---
PT DROPPED SYNTHROID, MEDICATION REPLACED.
--- NOTE | 2016-10-27 08:15 | NUR ---
PT RESTING IN BED WITH EYES OPEN CALL LIGHT IN REACH NO PROBLEMS WILL MONITER
[2016-10-27 09:28] VITALS: BP 119/51
--- NOTE | 2016-10-27 11:28 | NUR ---
BACK FROM PT TIANA WELL.
--- NOTE | 2016-10-27 15:03 | NUR ---
PT RESTING IN BED WIT EYES OPEN CALL LIGH IN REACH IN ROOM NO PROBLEMS WILL MONITER
--- NOTE | 2016-10-27 18:04 | NUR ---
PT RESTING IN BED WITH EYES OPEN CALL LIGHT IN REACH NO PROBLEMS WILL MONITER
--- NOTE | 2016-10-27 19:26 | NUR ---
GREYSON WRAPPED LEFT ELBOW. SPOUSE RETURNED, PT SITTING UP IN CHAIR, DENIES PAIN, STATES HE IS URINATING MORE AT A TIME.
[2016-10-27 19:28] VITALS: BP 133/89
[2016-10-27 23:56] VITALS: BP 113/96
--- NOTE | 2016-10-28 01:50 | NUR ---
pt c/o bilateral legs aching. pt requests tylenol, no tylenol ordered, left message for physician. discussed with patient chronic renal disease and would need to discuss with physician pain control. provided warm packs. pt states gave some relief.
--- NOTE | 2016-10-28 03:26 | NUR ---
pt emotional regarding need to urinate and the frequency of urination. pt states she feels she is emptying her bladder.
[2016-10-28 05:53] VITALS: BP 102/83
[2016-10-28 06:14] LABS: PHOSPHOROUS 5.7 mg/dL (2.5-4.9); URIC ACID 9.8 mg/dL (2.6-7.2)
--- NOTE | 2016-10-28 07:31 | NUR ---
pt states he believes his arm has decreased swelling.
--- NOTE | 2016-10-28 08:15 | NUR ---
PT RESTING IN BED WITH EYES OPEN CALL LIGHT IN REACH NO PROBLEMS WILL MONITER
[2016-10-28 08:18] VITALS: BP 135/43
[2016-10-28 08:59] LABS: BASOPHILS 0.2 % (0-2); EOSINOPHILS 4.9 % (0-7); HEMATOCRIT 28.7 % (42.0-54.0); IMMATURE GRANULOCYTES 0.4 % (0-5); LYMPHOCYTES 6.3 % (15-50); MCH 25.1 pg (26.0-34.0); MCHC 31.4 g/dL (31.0-37.0); MCV 80.2 fL (80.0-100.0); MEAN PLATELET VOLUME 9.9 fL (7.4-10.4); MONOCYTES 8.5 % (2-11); NEUTROPHILS 79.7 % (40-80); PLATELET COUNT 323 10x3/uL (130-400); RBC 3.58 10x6/uL (4.20-6.10); RDW 18.5 % (11.5-14.5); WBC 8.4 10x3/uL (4.8-10.8)
[2016-10-28 09:19] LABS: ALBUMIN 1.9 g/dL (3.4-5.0); ANION GAP 17.8 mmol/L (8-16); BILIRUBIN - TOTAL 0.55 mg/dL (0.2-1.3); CALCIUM 8.1 mg/dL (8.5-10.1); CARBON DIOXIDE 17.6 mmol/L (21.0-32.0); CREATININE - SERUM 6.6 mg/dL (0.6-1.3); POTASSIUM - SERUM 3.4 mmol/L (3.5-5.1); PROTEIN - SERUM 5.8 g/dL (6.4-8.2)
--- NOTE | 2016-10-28 09:58 | RHP ---
PATIENT: DEVAUGHN LLAMAS MEDICAL RECORD: [id number] ACCOUNT: [id number] LOCATION:[facility]1110 : 34 ADMISSION DATE: 10/24/16 REHABILITATION HISTORY AND PHYSICAL EXAMINATION POST ADMISSION PHYSICIAN EXAMINATION DATE OF ADMISSION: 10/24/2016 ADMITTING DIAGNOSIS: Septic olecranon bursitis, status post I&D. HISTORY OF PRESENT ILLNESS: The patient is an 81-year-old gentleman who was admitted to inpatient rehab with a right septic olecranon bursitis status post I&D. He has got a history of chronic renal insufficiency, multiple problems with hypertension, diabetes. He is on insulin pump. He had fallen approximately a week ago on the floor at home. He had scraped his right forearm and ____ skin. He has been on oral clindamycin for the last 4 days with daily dressing changes at home. He was noted to have increased swelling to his elbow the previous day. He came to Dr. Robison's office. He had not had fever, but had an obvious olecranon fusion that was warm to touch. This was cleanly and sterilely evacuated under local anesthesia with 20 cc of tona pus coming out and was aspirated, was cultured. The patient was recommended for IV antibiotics. He was admitted to the hospital with ortho nephrology consult, on 10/19/2016 went to the OR for I&D of the right elbow. He previously lived with his and was moderately independent with ADLs and mobility using a rolling walker. Currently, he is mod to max assist for ADLs and mobility due to his inability to use his right arm and deconditioning. He plans to return back home with his after discharge and hopefully get back to his prior level of functioning or possibly better if possible. COMORBIDITIES: Include right olecranon abscess, right elbow joint effusion, fever and chills, chronic kidney disease, hypertension, diabetes, anemia of chronic disease, acute kidney injury, hypothyroidism, hyperlipidemia, fatigue, weakness, falls, UTI, positive urine culture for Pasteurella multocida, forearm cellulitis, joint swelling, decreased range of motion and functional deficits and cataracts. PAST MEDICAL HISTORY: Significant for diabetes, on an insulin pump, stage IV chronic kidney insufficiency, his average creatinine is 5, severe hypertension, coronary artery disease. He has got hypothyroidism. He has had an adverse reaction to general anesthesia in the past. He has got osteoarthritis, cholelithiasis, hyperlipidemia, diverticulitis, history of GI bleed and history of PTCA. PAST SURGICAL HISTORY: Includes elbow surgery, cataract excision, right eye surgery, arthroscopy of his knee, cataract surgery and fistula placed in his forearm. ALLERGIES: PENICILLIN. CURRENT MEDICATIONS: Include Apresoline 25 mg b.i.d., furosemide 40 mg daily, Flomax 0.4 mg daily, minoxidil 2.5 mg daily, Megace 40 mg daily, levothyroxine 50 mcg daily, Levaquin 250 mg daily, Florinex 460 mg daily. He is on Procrit 4000 units daily. He is on Tums 1000 mg t.i.d. with meals. He is on insulin glucose replacement protocol if necessary for low blood sugar. Sodium bicarbonate 325 mg t.i.d., Zofran 4 mg q.6 hours p.r.n. nausea and vomiting. He HISTORY AND PHYSICAL [id number] DEVAUGHN LLAMAS is on a low resistant sliding scale with Humalog. He is on Pepcid 20 mg q.h.s., Colace 100 mg t.i.d., clonidine 0.1 mg as needed for elevated blood pressure and polyethylene glycol 17 grams in 8 ounces of water daily. HABITS: No current alcohol or tobacco use. FAMILY HISTORY: Noncontributory. SOCIAL HISTORY: The patient hopes to return back home with his and get back to his prior level of functioning. REVIEW OF SYSTEMS: GENERAL: Does complain of weakness. HEENT: Denies cold, cough, or congestion. CARDIOVASCULAR: Denies chest pain. No shortness of breath. PHYSICAL EXAMINATION: VITAL SIGNS: Stable, afebrile. GENERAL: Elderly gentleman in no acute distress, alert upon exam. HEENT: Normocephalic, atraumatic. Mucosa moist. NECK: Supple. No lymphadenopathy. LUNGS: Clear at this time. HEART: Regular rate and rhythm. ABDOMEN: Benign. EXTREMITIES: Does have dressings to his elbow. NEUROLOGIC: Intact. LABORATORY DATA: His white count 8.3, H&H of 9.2 and 29.4 and platelet count 321. His sodium is 137, potassium 3.9, BUN and creatinine of 79 and 5.9 and blood sugar is noted to be 130. ASSESSMENT: This is an 81-year-old gentleman admitted to the rehab with a working diagnosis septic olecranon bursitis status post I&D. The patient has potential to make improvement and ____ of the following multidisciplinary therapies including to, but not limited to physical, occupational, respiratory, speech, nutritional services, prosthetics and orthotics. Given his complex condition and risk for more complications, rehabilitation services cannot be provided at a low level of care such as a penitentiary facility. PLAN: 1. Admit to [facility] rehab for intensive inpatient therapy to include the following disciplines: A. Physical therapy to improve gait, all transfer skills and bed mobility to a modified independent level. B. Occupational therapy to independent modified level. C. Case management to assist with discharge planning and placement options. D. Nutrition to assist with nutritional needs. E. Rehabilitation nursing to assist in monitoring the patient's underlying medical conditions and to assist with any type of bowel or bladder management. 2. The patient's current medication and medical care will be continued. 3. The patient will be placed on standard fall precautions. 4. The patient's estimated length of stay is approximately 7-10 days. 5. Discuss this patient during care team staff meeting this week. We will hopefully get him back up on his rolling walker and help him bear a little bit weight on this region, so he can return home with his . HISTORY AND PHYSICAL [id number] DEVAUGHN LLAMAS TRANSINT:[id number] Voice Confirmation ID: [id number] DOCUMENT ID: [id number] VERNON notes whether there has been none or any medical/functional change since admission: - VERNON attests patient continues to be appropriate for IRF: - JOHNSON VILLARREAL MD at 0958 CC: [id number] DICTATION DATE: 10/25/16 0855 WASHER HAND: 10/25/16 1222 ADM IN [facility] [address] [place] [address]
[2016-10-28 12:15] VITALS: BP 177/51
[2016-10-28 12:16] VITALS: BP 177/51
--- NOTE | 2016-10-28 15:19 | NUR ---
NAPPING.FAMILY AT BEDSIDE.
--- NOTE | 2016-10-28 15:52 | NUR ---
PT RESTING IN BED WITH EYES OPEN CALL LIGHT IN REACH NO PROBLEMS WILL MONITER
[2016-10-28 18:30] VITALS: BP 155/34
--- NOTE | 2016-10-28 19:45 | NUR ---
PT. SITTING UP IN W/C AND VISITING WITH FAMILY MEMBERS. ASSESSMENT COMPLETED. NO VOICED NEEDS AT THIS TIME AND HIS CALL LIGHT IS WITHIN REACH.
[2016-10-28 20:30] VITALS: BP 162/57
--- NOTE | 2016-10-28 23:23 | NUR ---
PT. IN BED WITH HOB UP FOR COMFORT WITH EYES CLOSED AND RESP. EVEN. CALL LIGHT WITHIN REACH.
[2016-10-29 00:45] VITALS: BP 146/29
--- NOTE | 2016-10-29 03:11 | NUR ---
PT. IN BED WITH HOB UP FOR COMFORT WITH EYES CLOSED AND RESP. DEEP AND EVEN. CALL LIGHT WITHIN REACH.
[2016-10-29 06:11] VITALS: BP 106/89
[2016-10-29 07:03] LABS: BASOPHILS 0.2 % (0-2); EOSINOPHILS 5.4 % (0-7); HEMATOCRIT 30.4 % (42.0-54.0); HEMOGLOBIN 9.4 g/dL (13.5-17.5); IMMATURE GRANULOCYTES 0.3 % (0-5); LYMPHOCYTES 7.3 % (15-50); MCH 24.7 pg (26.0-34.0); MCHC 30.9 g/dL (31.0-37.0); MEAN PLATELET VOLUME 10.1 fL (7.4-10.4); MONOCYTES 6.3 % (2-11); NEUTROPHILS 80.5 % (40-80); PLATELET COUNT 367 10x3/uL (130-400); RDW 18.6 % (11.5-14.5); WBC 8.7 10x3/uL (4.8-10.8)
[2016-10-29 07:15] LABS: ANION GAP 16.8 mmol/L (8-16); CALCIUM 7.9 mg/dL (8.5-10.1); CARBON DIOXIDE 19.7 mmol/L (21.0-32.0); CREATININE - SERUM 6.9 mg/dL (0.6-1.3); POTASSIUM - SERUM 3.5 mmol/L (3.5-5.1)
--- NOTE | 2016-10-29 07:48 | NUR ---
PT UP EATING BREAKFAST, DENIES NEEDS.
[2016-10-29 12:17] VITALS: BP 169/89
--- NOTE | 2016-10-29 12:19 | NUR ---
PT FSBS 237. PT GIVEN 4 UNITS INSULIN. PT EATING LUNCH AT THIS TIME. DENIES NEEDS.
--- NOTE | 2016-10-29 15:24 | NUR ---
PT DRESSING CHANGED TO RT ELBOW. SCANT PINK DRAINAGE NOTED ON OLD DRESSING. CLEANSED WITH SAF CLEANSE, PATTED DRY. APPLIED ADAPTEC, 4X4'S AND WRAPPED WITH KERLIX THEN GREYSON WRAPPED.
--- NOTE | 2016-10-29 16:49 | NUR ---
PT FSBS 178. 2 UNITS OF INSULIN GIVEN. PT DENIES NEEDS.
[2016-10-29 17:52] VITALS: BP 182/61
--- NOTE | 2016-10-29 17:55 | NUR ---
PT GIVEN PRN CATAPRES FOR BP 182/61.
--- NOTE | 2016-10-29 19:00 | NUR ---
PATIENT IN BED. MULTIPLE FAMILY VISITORS PRESENT.
--- NOTE | 2016-10-29 20:15 | NUR ---
IN BED. DENIES NEEDS.
--- NOTE | 2016-10-29 21:40 | NUR ---
ASSESSMENT AND HS MEDS COMPLETE. HELD SCHEDULED COLACE PATIENT SAYS STOOLS ARE TOO SOFT. RIGHT TLJ CVL REMAINS PATIENT BIDIRECTIONALLY. DRESSING C/D/I. DENIES NEEDS.
[2016-10-29 22:25] VITALS: BP 133/56
--- NOTE | 2016-10-29 23:45 | NUR ---
AWAKE. EMPTIED 10 ML LIGHT YELLOW URINE FROM BEDSIDE URINAL.
--- NOTE | 2016-10-30 01:50 | NUR ---
EMPTIED 100ML FROM PATIENT'S URINAL. PATIENT AWAKE.
--- NOTE | 2016-10-30 04:40 | NUR ---
AWOKE PATIENT FOR LAB LINE DRAW AND FLUSHED HIS CVL.
[2016-10-30 05:17] LABS: BASOPHILS 0.3 % (0-2); HEMATOCRIT 28.1 % (42.0-54.0); HEMOGLOBIN 8.9 g/dL (13.5-17.5); IMMATURE GRANULOCYTES 0.3 % (0-5); MCH 25.2 pg (26.0-34.0); MCHC 31.7 g/dL (31.0-37.0); MCV 79.6 fL (80.0-100.0); MEAN PLATELET VOLUME 10.4 fL (7.4-10.4); MONOCYTES 6.6 % (2-11); NEUTROPHILS 78.8 % (40-80); PLATELET COUNT 344 10x3/uL (130-400); RBC 3.53 10x6/uL (4.20-6.10); RDW 18.9 % (11.5-14.5); WBC 7.4 10x3/uL (4.8-10.8)
[2016-10-30 05:24] VITALS: BP 106/40
--- NOTE | 2016-10-30 05:35 | NUR ---
RESTING QUIETLY IN BED AFTER ASSIST UP TO BR COMMODE TO URINATE @ 0505.
--- NOTE | 2016-10-30 05:35 | NUR ---
BLOOD DRAWN EARLIER FOR AM LABS. CVL REMAINS PATENT TO FLUSH. SCHEDULED SYNTHROID GIVEN PO. LASIX 80MG HELD FOR LOW BP OF 106/40 ON RIGHT LEG. STANDING WEIGHT OBTAINED--160 LBS 8 OZS.
[2016-10-30 05:39] LABS: ANION GAP 18.9 mmol/L (8-16); CALCIUM 7.8 mg/dL (8.5-10.1); CARBON DIOXIDE 20.7 mmol/L (21.0-32.0); CREATININE - SERUM 6.8 mg/dL (0.6-1.3); PHOSPHOROUS 5.8 mg/dL (2.5-4.9); POTASSIUM - SERUM 3.6 mmol/L (3.5-5.1)
--- NOTE | 2016-10-30 08:09 | NUR ---
PT EATING BREAKFAST, DENIES NEEDS. CL IN REACH.
[2016-10-30 12:45] VITALS: BP 133/55
--- NOTE | 2016-10-30 14:51 | NUR ---
NUTRITION MONITORING & EVAL CHART REVIEWED. ADA DIET ~75% INTAKE RECENT MEALS. GLUCERNA SHAKE WITH MEALS. RD FOLLOWING
[2016-10-30 17:14] VITALS: BP 138/64
--- NOTE | 2016-10-30 18:03 | NUR ---
PT EATING DINNER, FAMILY ASSISTING WITH NEEDS.
--- NOTE | 2016-10-30 19:30 | NUR ---
PATIENT IN BED. FAMILY MEMBERS VISITING.
--- NOTE | 2016-10-30 21:45 | NUR ---
ASSESSMENT AND HS MEDS COMPLETE. FSBS 178. GAVE PATIENT 2 UNITS HUMALOG S/S INSULIN SC INJ IN LUQ ABDOMEN.
[2016-10-30 22:59] VITALS: BP 136/54
--- NOTE | 2016-10-31 | NUR ---
RESTING QUIETLY IN BED, EYES CLOSED. APPEARS COMFORTABLE.
--- NOTE | 2016-10-31 02:10 | NUR ---
RESTING QUIETLY, EYES CLOSED.
[2016-10-31 05:28] VITALS: BP 137/42
[2016-10-31 05:50] LABS: BASOPHILS 0.2 % (0-2); EOSINOPHILS 8.6 % (0-7); HEMATOCRIT 28.9 % (42.0-54.0); HEMOGLOBIN 9.1 g/dL (13.5-17.5); IMMATURE GRANULOCYTES 0.5 % (0-5); LYMPHOCYTES 5.8 % (15-50); MCH 25.4 pg (26.0-34.0); MCHC 31.5 g/dL (31.0-37.0); MCV 80.7 fL (80.0-100.0); MONOCYTES 8.5 % (2-11); NEUTROPHILS 76.4 % (40-80); PLATELET COUNT 348 10x3/uL (130-400); RBC 3.58 10x6/uL (4.20-6.10); RDW 18.8 % (11.5-14.5); WBC 8.5 10x3/uL (4.8-10.8)
--- NOTE | 2016-10-31 05:55 | NUR ---
BACK IN BED, VISITING AT BEDSIDE. PATIENT STATES HE SLEPT WELL. BLOOD FOR AM LABS WAS DRAWN @ 0520 AND TAKE TO LAB. VS WERE OBTAINED AND RECORDED. WEIGHT THIS AM IS 160.0 LBS. PATIENT WAS CLEANSED AND CHANGED FROM URINAL SPILL IN SCRUB PANTS AND BRIEF. HAD ATTEMPTED TO GET PATIENT TO REMOVED HIS SCRUB PANTS LAST NIGHT TO FACILITATE USE OF URINAL BUT HE DECLINED. THIS WETNESS WAS THE RESULT.
[2016-10-31 06:14] LABS: ANION GAP 15.5 mmol/L (8-16); CALCIUM 7.7 mg/dL (8.5-10.1); PHOSPHOROUS 5.9 mg/dL (2.5-4.9); POTASSIUM - SERUM 3.5 mmol/L (3.5-5.1)
--- NOTE | 2016-10-31 08:10 | NUR ---
PT IS SITTING UP IN HIS WC. HE JUST FINISHED EATING BREAKFAST. DR ACEVEDO HAS WROTE A ORDER TO HAVE PT NPO FOR A PROCEDURE TODAY. DR MCPHERSON NOTIFIED. HE STATED TO KEEP PT NPO THE REST OF THE DAY, AND HE COULD DO IT LATE THIS AFTERNOON.
--- NOTE | 2016-10-31 09:30 | NUR ---
PT IS PARTICIPATING IN THERAPY AT THIS TIME.
--- NOTE | 2016-10-31 09:55 | NUR ---
PATIENT DISCHRGING FROM REHAB AND ADMITTED TO ACUTE FLOOR DUE TO PENDING SURGICAL PROCEDURE.
--- NOTE | 2016-10-31 10:34 | NUR ---
PT TO DC TO ROOM 2116.
[2016-10-31] MEDS ORDERED: MELATONIN 3 MG1 TAB PO (23:41)
[2016-11-01 08:24] LABS: HEPATITIS C ANTIBODY <0.1 (0.0-0.9)
== END 2016-10-31 12:32 | disposition short-term general hospital (02) | DRG 558 ==
LOC: D.REHAB 19:09
PROVIDERS: Internal Medicine Nephrology; ADMIT Emergency Medicine
DX: M71.121 Other infective bursitis, right elbow (principal); N39.0 Urinary tract infection, site not specified; N17.9 Acute kidney failure, unspecified; I12.0 Hypertensive chronic kidney disease with stage 5 chronic kidney disease or end stage renal disease; N18.5 Chronic kidney disease, stage 5; M25.421 Effusion, right elbow; R50.9 Fever, unspecified; E11.22 Type 2 diabetes mellitus with diabetic chronic kidney disease; D63.1 Anemia in chronic kidney disease; E03.9 Hypothyroidism, unspecified; E78.5 Hyperlipidemia, unspecified; R53.83 Other fatigue; R53.1 Weakness; Z91.81 History of falling; Z79.4 Long term (current) use of insulin

== ENCOUNTER 2016-10-31 12:56 | Inpatient (IN) | payer MEDICARE, OTHER ==
[~2016-10-31] VITALS: Ht 172.7 cm; Wt 68.2 kg
[~2016-10-31 12:56] MED LIST changes: -PEPCID AC20 MG PO; +PEPCID40 MG PO; -SYNTHROID50 MCG PO; +SYNTHROID75 MCG PO; -ZOFRAN8 MG; +ZOFRAN8 MG PO
--- NOTE | 2016-10-31 13:35 | NUR ---
SX TEAM HERE TO P/U PT FOR PROCEDURE. CONSENTS ARE SIGNED AND IN CHART. NO FURTHER NEEDS AT THIS TIME.
[2016-10-31 13:53] VITALS: BP 136/45; BMI 20.5
[2016-10-31 17:25] VITALS: BP 106/52
--- NOTE | 2016-10-31 17:49 | NUR ---
PT RETURNED FROM SX. RR NONLABORED ON RA. VSS WITH LOW BP OF 107/52. PT ISNT FEELING "TOO LEW" HE STATES. REPOSTIONED PT UP IN BED AND PROPPED BILAT ARMS ON PILLOWS FOR COMFORT AND BILAT FEET ON PILLOWS TO REDUCE SWELLING AND HELP WITH CIRCULATION. PERIPHERAL PULSES INTACT AND STRONG BUT BILAT SWELLING +3 PITTING EDEMA. PT HAS NEWLY PLACED HEMOSPLIT TO R.GROIN WITH CAPS CDI AND DRSG CDI. PT HAS SUTURES TO R.NECK CDI AND DRSG CDI TO L.CHEST WHERE ACCESS WAS ATTEMPTED. PT HAS NEWLY PLACED IV ACCESS TO L.WRIST THAT IS SL. PT DENIES ANY CURRENT PAIN AT THIS TIME AND HAS FAMILY AT BEDSIDE. WILL CTM CLOSELY AND PROTOCOL Q15MIN VSS. NO FURTHER NEEDS NOTED AT THIS TIME.
--- NOTE | 2016-10-31 19:21 | NUR ---
ASSESSMENT COMPLETE, PT IN BED ASLEEP, AROUSES TO VERBAL STIMULI. RESPERATIONS EVEN ON O2 AT 3 LITER VIA NC. SUTURES NOTED TO RIGHT NECK FROM REMOVAL OF CENTRAL LINE. DRSG TO LEFT SUBCLAVIAN FROM ATTEMPTING TO PLACE HEMOSPLIT, C/D/I. IV TO LEFT WRIST WITH NS AT KVO, SITE CLEAN AND DRY. TRIALYSIS CATH NOTED TO RIGHT THIGH, DRSG INTACT. PT STATED THAT HE IS NOT FEELING WELL, OFFERED PT PAIN MEDICATION, PT DECLINED AT THIS TIME. VITALS STABLE. AT BED SIDE, BED LOW, CL IN REACH.
--- NOTE | 2016-10-31 21:54 | NUR ---
BS 227, NO COVERAGE GIVEN AT PT REQUEST, PT STATED THAT HE HASNT EATEN ANY DINNER AND DOESNT WANT ANY THING TO EAT RIGHT NOW AND IS AFRAID HIS SUGAR MAY GET TOO LOW THROUGH THE NIGHT. AT BED SIDE, CL IN REACH.
[2016-10-31 22:32] VITALS: BP 120/57
[2016-10-31] MEDS ORDERED: MELATONIN 3 MG1 TAB PO (23:41)
[2016-11-01] VITALS (7 sets, daily range): BP systolic 122–161; BP diastolic 52–64; Ht 172.7 cm; Wt 68.2 kg
--- NOTE | 2016-11-01 03:45 | NUR ---
EXCEPTIONAL NEEDS TEACHER AT BEDSIDE TO OBTAIN VITALS, CALL LIGHT IN REACH. WILL CONTINUE WITH PLAN OF CARE.
[2016-11-01 06:34] LABS: ANION GAP 20.3 mmol/L (8-16); CALCIUM 7.3 mg/dL (8.5-10.1); CARBON DIOXIDE 19.9 mmol/L (21.0-32.0); CREATININE - SERUM 7.4 mg/dL (0.6-1.3); PHOSPHOROUS 6.8 mg/dL (2.5-4.9)
[2016-11-01 06:35] LABS: POTASSIUM - SERUM 4.2 mmol/L (3.5-5.1)
--- NOTE | 2016-11-01 06:38 | NUR ---
LAB RESULTED A GLUCOSE OF 202, PT DECLINED INSULIN, STATED THAT HE HASNT BEEN EATING WELL.
[2016-11-01 07:04] LABS: BASOPHILS 0.1 % (0-2); EOSINOPHILS 2.8 % (0-7); HEMATOCRIT 24.1 % (42.0-54.0); IMMATURE GRANULOCYTES 0.2 % (0-5); LYMPHOCYTES 4.4 % (15-50); MCH 24.8 pg (26.0-34.0); MCHC 30.7 g/dL (31.0-37.0); MCV 80.9 fL (80.0-100.0); MEAN PLATELET VOLUME 11.1 fL (7.4-10.4); MONOCYTES 9.2 % (2-11); NEUTROPHILS 83.3 % (40-80); PLATELET COUNT 303 10x3/uL (130-400); RBC 2.98 10x6/uL (4.20-6.10); RDW 18.8 % (11.5-14.5); WBC 8.9 10x3/uL (4.8-10.8)
[2016-11-01 07:08] LABS: HEMOGLOBIN 7.4 g/dL (13.5-17.5)
--- NOTE | 2016-11-01 07:45 | NUR ---
INTRODUCED MYSELF TO PT PRIMARY RN FOR TODAYS SHIFT. PT IS A&O RESTING QUIETLY IN BED WITH AT BEDSIDE. SHIFT ASSESSMENT COMPLETED. BILAT LEGS STILL SWOLLEN ELEVATED BOTH ON PILLOWS. PT HAS HIS R.ARM WRAPPED AND IS CDI WILL CHANGE ORDERED LATER THIS MORNING. PT DENIES ANY CURRENT PAIN OR NEEDS AT THIS TIME. CL IN REACH, BED IN LOWEST, SIDE RAILS X2. WILL CTM.
--- NOTE | 2016-11-01 08:43 | CN ---
PATIENT NAME:DEVAUGHN LLAMAS MEDICAL RECORD: [id number] : 33 LOCATION:[facility] D.2133 ADMIT DATE: 10/31/16 ACCOUNT: [id number] CONSULTING PHYSICIAN: ÁLVARO MCPHERSON MD REFERRING PHYSICIAN: CAROL ACEVEDO MD DATE OF CONSULTATION: 10/31/2016 Surgical Consultation SURGEON: Álvaro Mcpherson MD. CHIEF COMPLAINT: End-stage renal disease requiring hemodialysis. HISTORY OF PRESENT ILLNESS: This is an 81-year-old male who was admitted to the hospital 2 weeks ago with chronic renal insufficiency, hypertension and diabetes. He had a fall prior to admission denuding the skin of his right elbow and forearm. He developed a wound infection. He was taken to the OR by the orthopedic surgeon for debridement. He was treated with IV antibiotics. He has subsequently been transferred to the inpatient rehab, at which time his chronic renal insufficiency has gotten progressively worse to the point he is now requiring hemodialysis with the creatinine in 7-8 range. PAST MEDICAL HISTORY: Diabetes, hypertension, coronary artery disease, hypothyroidism, osteoarthritis, cholelithiasis, hyperlipidemia, diverticulitis, history of GI bleed. PAST SURGICAL HISTORY: Percutaneous transluminal coronary angiography with stent placement, right elbow surgery, cataracts, knee arthroscopy, left forearm fistula. FAMILY HISTORY: Both his parents had hypertension and heart disease. SOCIAL HISTORY: He is . He lives with his spouse. They live independently. HOME MEDICATIONS: Please see electronic medical record for full list of medications. ALLERGIES: PENICILLINS, SQUASH AND AMARI INHIBITORS. REVIEW OF SYSTEMS: A 12-point review of systems was obtained. Pertinent positive and negatives as per the HPI. PHYSICAL EXAMINATION: VITAL SIGNS: Stable. He is febrile. GENERAL: This is a well-developed and well-nourished elderly male in mild distress. EYES: Extraocular muscles intact. PSYCHIATRIC: He is alert and oriented times 3. EYES: Extraocular muscles are intact. EAR, NOSE AND THROAT: Mucous membranes dry. NECK: Supple. CARDIOVASCULAR: Normal sinus rhythm. LUNGS: Decreased breath sounds bilaterally. ABDOMEN: Soft, nontender and nondistended. CONSULT REPORT [id number] DEVAUGHN LLAMAS SKIN: Warm and dry with normal turgor. EXTREMITIES: He has got an Amari wrap and dressing in place in the right elbow. He has a right IJ triple lumen catheter in place. EXTREMITIES: He has got mild 1+ peripheral edema and he is neurovascularly intact. NEUROLOGIC: He has a GCS of 15 with no focal deficits. LABORATORY DATA: Reviewed. Please see electronic medical record for full list of values of CBC, chemistry, UA and hepatitis panel. IMAGING: Chest x-ray from October 19 was personally reviewed, which showed right basilar atelectasis. IMPRESSION: An 81-year-old male with end-stage renal disease requiring hemodialysis. PLAN: OR today for HemoSplit catheter placement. Continue preoperative IV antibiotics. TRANSINT:[id number] Voice Confirmation ID: [id number] DOCUMENT ID: [id number] ÁLVARO MCPHERSON MD at 0843 CC: [id number] DICTATION DATE: 10/31/16 1424 AGRICULTURAL COMMODITIES INSPECTOR: 10/31/16 2348 ADM IN [facility] [address] [place] [address]
--- NOTE | 2016-11-01 08:43 | OP ---
PATIENT NAME: DEVAUGHN LLAMAS MEDICAL RECORD: [id number] :34 LOCATION:. D.2133 ADMISSION DATE:10/31/16 SURGEON: ÁLVARO MCPHERSON MD DATE OF OPERATION: 10/31/2016 SURGEON: Álvaro Mcpherson MD PREOPERATIVE DIAGNOSIS: End-stage renal disease requiring hemodialysis. POSTOPERATIVE DIAGNOSIS: End-stage renal disease requiring hemodialysis. ANESTHESIA: General. COMPLICATIONS: Access insufficiency. PROCEDURES: 1. Attempted ultrasound-guided left internal jugular vein HemoSplit placement. 2. Attempted ultrasound-guided right internal jugular HemoSplit placement. 3. Right femoral Trialysis catheter placement. ESTIMATED BLOOD LOSS: 70 cc. OPERATIVE COURSE: After consent was obtained, the patient was taken to the operating room and placed in the supine position on the operating table. The patient was started with local anesthesia in the left neck. The left internal jugular vein was identified under ultrasound guidance, the vein was cannulated and guidewire was placed under fluoroscopic guidance. The wire was advanced to the atriocaval junction. The dilators were unable to be passed over the wire. Multiple attempts were made to access to pass the dilators over the wire. The small Angiocath was passed over the wire and the wire was removed and 0.035 Glidewire was placed. Again, the dilators were attempted to be passed over the wire unsuccessfully. At this time, the procedure was aborted. At this time, there was a right IJ triple lumen catheter in place. A guidewire was placed through the triple lumen catheter under fluoroscopic guidance and triple lumen catheter was removed. Skin incision was made. Local anesthetic was administered. Again, the dilators were unable to pass over the wire. At this time, used the ultrasound probe, the right IJ was again re-accessed under ultrasound guidance. The guidewire was placed under fluoroscopic guidance and was advanced. Again, the dilators were unable to be placed, unable to pass over the wire safely. At this time, the wire and the dilators were removed. Both skin incisions were closed with 3-0 nylon. The drapes removed. The patient was intubated. The right and left groin were then prepped and draped in typical sterile fashion. Using ultrasound, the right femoral vein was identified. Under ultrasound guidance, the femoral vein was cannulated, the wire was placed and the needle was removed. Skin incision was made. Dilators were passed over the wire in a standard Seldinger fashion. Trialysis catheter was then passed over the wire in a standard Seldinger fashion. There was immediate return of blood to all 3 ports. The wire was removed. All 3 ports were aspirated. They were then flushed. The catheter was secured to the skin using 2-0 nylon suture. Sterile Tegaderm dressing was played. At the end of the procedure, all needle and instrument counts were correct. No complications occurred. The patient was extubated and transferred to the PACU in stable condition. TRANSINT:[id number] Voice Confirmation ID: [id number] DOCUMENT ID: [id number] OPERATIVE REPORT [id number] DEVAUGHN LLAMAS,ÁLVARO Alamo MD at 0843 CC: [id number] DICTATION DATE: 10/31/16 1645 GROUP CONTRACT ANALYST: 11/01/16 0126 ADM IN [facility] [address] [place] [id number]
--- NOTE | 2016-11-01 09:25 | NUR ---
ADMINISTERED MORNING MEDS ORDERED. PT SITTING UP IN BED RESTING QUIETLY WITH AT BEDSIDE. PT WILL RECIEVE A UNIT OF PRBCS TODAY IN DIALYSIS AND VERBALIZED UNDERSTANDING OF REASONING/PURPOSES. CONSENTS OBTAINED AND PLACED IN CHART. CHANGED PTS R.ELBOW DRSG ORDERED R/T IT BEING SOILED WITH SCANT AMOUNT OF YELLOW CLEAR DRAINAGE. PT HAS OPEN INCISION FROM WITH INCISION HEALING WELL EDGES APPROXIMATED AND NO S/S OF INFECTION OR REDDNESS NOTED. APPLIED ADAPTIC DRSG OVER SITE AND TO TWO SMALL SKIN TEARS ON SAME ARM BY ELBOW. THEN PADDED WITH GUAZE AND WRAPPED LOOSELY WITH KERLIX AND APPLIED STOCKING TO KEEP DRSG IN PLACE. PT VOICED THANKS AND STATES IT FEELS MUCH BETTER. PT READY FOR BED BATH AND HAS CHUTE MAN AT BEDSIDE. DENIES ANY CURRENT PAIN OR NEEDS. CL IN REACH. WILL CTM.
--- NOTE | 2016-11-01 11:02 | NUR ---
PT LEAVING FOR DIALYSIS.
--- NOTE | 2016-11-01 15:03 | NUR ---
PT BACK IN ROOM FROM DIALYSIS. RESTING COMFORTABLY IN BED ALERT AND ORIENTED. PT DENIES ANY PAIN AT THIS TIME. PT DID NOT STAY PLAN NURSE R/T BP DROP AND NOT FEELING WELL. PT CURRENTLY STATES HE FEELS BETTER AND VS SHOW: T-97.7, BP-127/52, P-84, R-18, SPO2-97 ON ROOM AIR. DENIES FURTHER NEEDS AT THIS TIME, WILL CONTINUE TO MONITOR.
--- NOTE | 2016-11-01 15:33 | NUR ---
APPLIED SCDS TO BILAT LE FOR DVT PROPHYLACTICS. PT DENIES ANY PAIN IN LEGS. PTS L.LE SWELLING HAS WENT DOWN TO +2 PITTING SINCE THIS AM AND R.LE HAS +1 SINCE DIALYSIS. ON MORNING ASSESSMENT BILAT WERE +4 PITTING EDEMA PT HAS HAD MUCH IMPROVEMENT AND THE BILAT PILLOW ELEVATION SEEMS TO HELP. CL IN REACH. NO FURTHER NEEDS. WILL CTM.
--- NOTE | 2016-11-01 17:17 | NUR ---
Patient Name: DEVAUGHN LLAMAS Admission Status: Elective Accout number: [id number] Admission Date: 11-01-2016 : 1935 Admission Diagnosis: Attending: CLAUDE Current LOS: 1 Anticipated DC Date: TO BE DETERMINED Planned Disposition: Inpatient Rehab Primary Insurance: UHCMCRSOL PLANNED EXTERNAL PROVIDER: [facility] IN[facility]IENT REH[facility] Discharge Planning Comments: * Is the patient Alert and Oriented? Yes 0 * How many steps to enter\exit or inside your home? NONE 0 * PCP DR. FRYE 0 * Pharmacy [facility] * Preadmission Environment Acute Inpatient Rehab 0 * Facility Name [facility]IENT [facility] 0 * ADLs Partial Dependent 0 * Partial ADLs (Assistance needed) Ambulation Bathing Medication Management Transfers 0 * Equipment Cane Glucometer Other Walker 0 * Other Equipment INSULIN PUMP 0 * List name and contact numbers for known caregivers / representatives who currently or will assist patient after discharge: EMILIE LLAMAS, SPOUSE, 0 * Community resources currently utilized None 0 * Please name any agencies selected above. PT HAD [facility] PRIOR TO INPATIENT REHAB AND PREVIOUS HOSPITAL ADMISSION. 0 * Additional services required to return to the preadmission environment? Yes * Can the patient safely return to the preadmission environment? Yes 0 * Has this patient been hospitalized within the prior 30 days at any hospital? Yes 0 CM RECEIVED ORDER FOR OUTPATIENT DIALYSIS AT [facility]. CM MET WITH PT IN ROOM TO DISCUSS DISCHARGE PLANNING AND NEEDS. PT REPORTS LIVING AT HOME INDEPENDENTLY WITH SPOUSE PRIOR TO HOSPITALIZATION; PT CANNOT RECALL HIS MEDICAL EQUIPMENT PROVIDER. PT HAD [facility] PRIOR TO ADMISSION AND THEN ADMISSION TO INPATIENT REHAB THAT PT AND SPOUSE WAS PRIVATE PAYING FOR SERVICES BECAUSE INSURANCE WOULD NOT PAY. CM DISCUSSED AVAILABILITY OF HOME HEALTH, REHAB SERVICES AND MEDICAL EQUIPMENT. PT REPORTS PLAN TO RETURN TO INPATIENT REHAB AT [place] AND HE WAS TOLD THAT INSURANCE WOULD PAY FOR IT ONCE HE WAS STARTED ON DIALYSIS. PT REPORTS THAT HIS SPOUSE WILL TRANPSPORT HIM TO AND FROM DIALYSIS AFTER HE DISCHARGES HOME FROM REHAB; PT IN AGREEMENT WITH [facility] FOR OUTPATIENT DIALYSIS SERVICES. CM CALLED PALOMA FERRER, PATIENT PATHWAYS COORDINATOR, LEFT MESSAGE ASKING FOR ASSISTANCE IN ARRANGING OUTPATIENT DIALYSIS UNIT AT [facility]. PT WOULD LIKE TO RETURN TO [facility] INPATIENT REHAB AT DISCHARGE. CM WAITING OUTPATIENT DIALYSIS CLINIC ARRANGEMENT; CM TO FOLLOW AND ASSIST NEEDED. Security Alarm Technician: Maik Hung
--- NOTE | 2016-11-01 19:47 | NUR ---
RECEIVED REPORT, PT VISITING WITH , 3L, [id number], DENIES ANY NEEDS, CALL LIGHT IN REACH, HAD DIALYSIS TODAY, ALL DRESSING ARE INTACT AND DRY, WILL CONTINUE PLAN OF CARE
--- NOTE | 2016-11-01 23:00 | NUR ---
[id number] 4 UNITS
--- NOTE | 2016-11-02 03:05 | NUR ---
DIGITAL SALES MANAGER AT BEDSIDE TO OBTAIN VITALS, CALL LIGHT IN REACH. WILL CONTINUE WITH PLAN OF CARE.
--- NOTE | 2016-11-02 03:57 | NUR ---
ASSESSMENT COMPLETE, SEE FLOWSHEET, DAUGHTER AT BEDSIDE, BED IS LOW, SRX2, CALL LIGHT IN REACH
[2016-11-02 04:00] VITALS: BP 183/70
[2016-11-02 04:48] LABS: BASOPHILS 0.3 % (0-2); EOSINOPHILS 7.7 % (0-7); HEMATOCRIT 26.8 % (42.0-54.0); HEMOGLOBIN 8.3 g/dL (13.5-17.5); IMMATURE GRANULOCYTES 0.1 % (0-5); LYMPHOCYTES 7.2 % (15-50); MCH 25.3 pg (26.0-34.0); MCV 81.7 fL (80.0-100.0); MEAN PLATELET VOLUME 9.9 fL (7.4-10.4); MONOCYTES 9.7 % (2-11); PLATELET COUNT 216 10x3/uL (130-400); RBC 3.28 10x6/uL (4.20-6.10)
[2016-11-02 05:10] LABS: ANION GAP 16.7 mmol/L (8-16); CALCIUM 7.4 mg/dL (8.5-10.1); CARBON DIOXIDE 24.7 mmol/L (21.0-32.0); PHOSPHOROUS 5.1 mg/dL (2.5-4.9)
[2016-11-02 05:11] LABS: CREATININE - SERUM 5.2 mg/dL (0.6-1.3); POTASSIUM - SERUM 3.4 mmol/L (3.5-5.1)
--- NOTE | 2016-11-02 08:10 | NUR ---
GOT PATIENT UP TO CHAIR WITH 2 PERSON ASSIST, MAX ASSIST. PATIENT VERY WEAK. PATIENT IS HOLDING HIMSELF ERECT IN THE CHAIR. NO SIGNS OF DISTRESS NOTED. CALL LIGHT IN REACH. AT BEDSIDE. BOTH DENY FURTHER NEEDS.
[2016-11-02 08:30] VITALS: BP 155/73
[2016-11-02 12:30] VITALS: BP 141/72
[2016-11-02 15:51] VITALS: BP 159/71
[2016-11-02 19:00] VITALS: BP 181/40
--- NOTE | 2016-11-02 19:58 | NUR ---
GONE TO CT BY BED
--- NOTE | 2016-11-02 20:14 | NUR ---
BACK TO ROOM FROM CT, NOTIFIED BY PIPELAYING FITTER THAT PTS RIGHT ARM ABOVE CURRENT DRSG RECIEVED A SKIN TEAR IN THE PROCESS OF MOVING PT IN BED. COVERED WITH 4X4 AND WRAPPED WITH KERLIX. WILL CONT TO MONITOR.
--- NOTE | 2016-11-02 21:22 | NUR ---
HS MES GIVEN WITH FRESH ICE WATER, BS 190, COVERED PER S/S. PT DENIES PAIN OR OTHER NEEDS, BED LOW, CL IN REACH. SITTER AT BED SIDE.
[2016-11-03] VITALS: BP 173/59
--- NOTE | 2016-11-03 02:53 | NUR ---
RESTING WITH EYES CLOSED, RESPERATIONS EVEN, NO S/S DISTRESS NTOED.
[2016-11-03 04:00] VITALS: BP 128/50
[2016-11-03 05:08] LABS: BASOPHILS 0.4 % (0-2); EOSINOPHILS 8.3 % (0-7); HEMATOCRIT 27.4 % (42.0-54.0); HEMOGLOBIN 8.5 g/dL (13.5-17.5); IMMATURE GRANULOCYTES 0.5 % (0-5); LYMPHOCYTES 7.2 % (15-50); MCH 25.3 pg (26.0-34.0); MCV 81.5 fL (80.0-100.0); MONOCYTES 10.1 % (2-11); NEUTROPHILS 73.5 % (40-80); PLATELET COUNT 185 10x3/uL (130-400); RBC 3.36 10x6/uL (4.20-6.10); RDW 19.1 % (11.5-14.5); WBC 10.1 10x3/uL (4.8-10.8)
[2016-11-03 05:09] LABS: ANION GAP 16.4 mmol/L (8-16); CALCIUM 7.7 mg/dL (8.5-10.1); CREATININE - SERUM 5.5 mg/dL (0.6-1.3); PHOSPHOROUS 5.3 mg/dL (2.5-4.9); POTASSIUM - SERUM 4.4 mmol/L (3.5-5.1)
--- NOTE | 2016-11-03 07:05 | NUR ---
RECEIVED REPORT. ASSUMED CARE OF PATIENT. CALL LIGHT LIGHT WITHIN REACH. PATIENT UPSET ABOUT HIS SKINTEAR THAT WAS OBTAINED WHEN HE WENT TO CT SCAN. DRESSING INTACT. PATIENT STATES HE IS SAD, FEELS LIKE HE ISN'T GETTING ANY BETTER. PATIENT STATES HAS TALKED TO HIM ABOUT DEPRESSION BEFORE BUT DECLINED THE OFFER TO START MEDICATION BUT PATIENT STATES HE IS WILLING TO TRY AN ANTIDEPRESSANT AT THIS TIME. FAMILY AT BEDSIDE DURING CONVERSTATION. INFORMED PT THAT THIS ELEMENTARY SECRETARY WOULD BRING THIS TO RENALS ATTENTION. NO DISTRESS.
--- NOTE | 2016-11-03 08:15 | NUR ---
ASSISTED PATIENT TO DANGLE FEET TO SIDE OF BED SO HE CAN EAT BREAKFAST. AT BEDSIDE. NO DISTRESS.
[2016-11-03 08:54] VITALS: BP 119/72
--- NOTE | 2016-11-03 10:32 | NUR ---
PATIENT LEFT UNIT VIA BED AT THIS TIME FOR DIALYSIS. NO DISTRESS UPON LEAVING UNIT.
--- NOTE | 2016-11-03 11:21 | NUR ---
FSBS 174. NO INSULIN COVERAGE ADMINISTERED PATIENT IS IN DIALYSIS AND NOT EATING LUNCH. PATIENT NOT TOLERATING DIALYSIS WELL AND HAD TO BE REMOVED AFTER 9 MINUTES. DIALYSIS NURSE CHERISE WILL TRY AGAIN PER RENAL CUSTOMER ENGINEERGlenn ANTONIO. BRITTANY AT BEDSIDE IN DIALYSIS AT THIS TIME.
--- NOTE | 2016-11-03 13:05 | NUR ---
DIALYSIS TREATMENT X 2 ATTEMPTS TODAY, BUT BOTH UNSUCCESSFUL. 1ST ATTEMPT, PATIENT WAS ON TREATMENT 5 MINUTES BEFORE COMPLAINING OF NAUSEA, PATIENT SOON BECAME UNRESPONSIVE. BLOOD WAS RETURNED, AND TREATMENT ENDED. WAS TRYING FOR 2500 UF UPON INITIATION OF THIS TREATMENT. CALLED MONITORS, NO ARRYTHMIA DURING THIS, AND HYPOTENSION THAT BP WAS UNABLE TO READ. MALA CROFT APN NOTIFIED, ORDERS WERE TO TRY AGAIN. ALLOWED PATIENT TO REST FOR 1 HOUR ATTEMPTED AGAIN. PATIENT LASTED 10 MINUTES BEFORE HYPOTENSION TOO LOW TO READ AND NAUSEA, HE DID NOT LOOSE CONSCIOUSNESS BUT WAS HARD TO GET A RESPONSE FROM. TREAMENT STOPPED, BLOOD RETURNED, AGAIN NO ARRYTHMIA NOTED BY MONITORS. 72/30 BP UPON RETURNING BLOOD.THIS TREATMENT THERE WAS NO UF, AND ONLY 250BFR REPORT CALLED TO "KORY" DALI, MALA CROFT APN NOTIFIED, AND PATIENT RETURNED TO ROOM BY FLOOR.
--- NOTE | 2016-11-03 16:31 | NUR ---
FSBS 321. 8 UNITS HUMALOG ADMINISTERED PER SLIDING SCALE. NO DISTRESS.
[2016-11-03 16:59] VITALS: BP 152/42
[2016-11-03 19:00] VITALS: BP 127/57
--- NOTE | 2016-11-03 20:10 | NUR ---
REAL ESTATE PROFESSOR IN BEDSIDE.
[2016-11-04] VITALS: BP 150/83
--- NOTE | 2016-11-04 01:02 | NUR ---
PT REST QUIETLY IN BED, EYE CLOSE, BED LOW, CALL LIGHT WITHIN REACH.
[2016-11-04 04:00] VITALS: BP 139/80
--- NOTE | 2016-11-04 04:34 | NUR ---
PT RESTING IN BED WITH NO DISTRESS. CPOC.
[2016-11-04 08:00] VITALS: BP 117/39
--- NOTE | 2016-11-04 09:04 | NUR ---
ADMINISTERED MORNING MEDICATIONS, PT IN BED, DENIES ANY NEEDS AT THIS TIME. CALL LIGHT IN REACH, AT BEDSIDE, NAD NOTED, WILL CONTINUE TO MONITOR.
--- NOTE | 2016-11-04 11:50 | NUR ---
BLOOD SUGAR OF 249, 4UNITS OF HUMULOG GIVEN PER SLIDING SCALE. DRESSING CHANGE PROVIDED TO RT ARM. PT DENIES ANY NEEDS AT THIS TIME, AT [facility], NAD NOTED, WILL CONTINUE TO MONITOR.
[2016-11-04 12:00] VITALS: BP 102/49
--- NOTE | 2016-11-04 15:28 | NUR ---
PT C/O OF PAIN WHEN HE SWALLOWS. LOOKED IN PT'S MOUTH. NO REDNESS NOTED TO THROAT AREA. THERE WAS SOME REDNESS CLOSE TO HIS RIGHT UPPER MOUTH BY HIS GUMS CLOSE TO ONE OF HIS TOOTH. PT DENIES ANY OTHER NEEDS CALL LIGHT IN REACH, AT BEDSIDE, NAD NOTED, WILL CONTINUE TO MONITOR.
[2016-11-04 16:00] VITALS: BP 150/51
--- NOTE | 2016-11-04 16:20 | NUR ---
BLOOD SUGAR OF 151, S/S CALLED FOR 2 UNITS OF INSULIN. AT BEDSIDE "STATED HE DOES NOT NEED INSULIN BECAUSE HE IS NOT EATING WELL BECAUSE HIS THROAT HURTS". PT AND DENY ANY OTHER NEEDS AT THIS TIME. CALL LIGHT IN REACH, NAD NOTED, WILL CONTINUE TO MONITOR.
[2016-11-04 19:00] VITALS: BP 151/51
--- NOTE | 2016-11-04 21:20 | NUR ---
PUT ON "NPO AFTER MIDNIGHT" WARNING SIGN ON PT'S DOOR.
--- NOTE | 2016-11-04 23:05 | NUR ---
CONSENT SIGNED FOR TOMORROW PROCEDURE.(REMOVAL OF RT FEMORAL TRIALYSIS AND PLACEMENT OF RT FEMORAL HEMOSPLIT)
[2016-11-05] VITALS (7 sets, daily range): BP systolic 90–176; BP diastolic 43–91
--- NOTE | 2016-11-05 00:10 | NUR ---
DIALYSIS COORDINATOR: PATHWAYS: Notified of patient needing OPHD arrangements for [facility]. DEVORAH following patient and will set patient up with this facility per Dr. Roa's request. DC will meet with patient/family on Saturday for education. AUBREY FAIRCHILD.
--- NOTE | 2016-11-05 03:39 | NUR ---
PT REST QUIETLY IN BED WITH EYE CLOSE, BED LOW, CALL LIGHT WITHIN REACH.
--- NOTE | 2016-11-05 03:42 | NUR ---
SALES REPRESENTATIVE WIRE ROPE AT BEDSIDE FOR VS. NEEDS ADDRESSED AT THIS TIME. CALL LIGHT IN REACH. WILL CONT TO MONITOR.
[2016-11-05 05:48] LABS: BASOPHILS 0.4 % (0-2); EOSINOPHILS 11.2 % (0-7); HEMATOCRIT 27.6 % (42.0-54.0); HEMOGLOBIN 8.5 g/dL (13.5-17.5); IMMATURE GRANULOCYTES 0.2 % (0-5); LYMPHOCYTES 6.3 % (15-50); MCH 25.7 pg (26.0-34.0); MCHC 30.8 g/dL (31.0-37.0); MCV 83.4 fL (80.0-100.0); MEAN PLATELET VOLUME 10.5 fL (7.4-10.4); MONOCYTES 10.4 % (2-11); NEUTROPHILS 71.5 % (40-80); RBC 3.31 10x6/uL (4.20-6.10); RDW 19.3 % (11.5-14.5); WBC 8.5 10x3/uL (4.8-10.8)
[2016-11-05 05:53] LABS: PLATELET COUNT 228 10x3/uL (130-400)
[2016-11-05 06:16] LABS: ANION GAP 14.6 mmol/L (8-16); CALCIUM 8.3 mg/dL (8.5-10.1); CARBON DIOXIDE 25.2 mmol/L (21.0-32.0); CREATININE - SERUM 5.9 mg/dL (0.6-1.3); POTASSIUM - SERUM 3.8 mmol/L (3.5-5.1)
--- NOTE | 2016-11-05 12:05 | NUR ---
As per Dr. Waggoner changed dressing to right elbow (surgical incision) measuring 4.5cm x 2cm x 0.5cm x 2.5cm from 12-12 oclock. Gently cleansed with saline and packed loosely with 1/2" iodoform gauze. Covered with 4x4s. Also noted fluid filled blister on the inside of the upper right arm. Protected it with 4x4s and secured all with kerlix and stockingette. Pt has peeling skin on his bottom. Cleansed and patted dry. Covered with mepilex sacral dressing and ordered an air overlay mattress. Pt needs to change positions q 2 hours while in bed. Hourly if up in chair. Wound care will continue to monitor.
--- NOTE | 2016-11-05 13:17 | NUR ---
Nutrition follow-up: Diet: Renal ADA consistent CHO PO intake 25-50% of meals Labs reviewed Wt: 135# RDN provided pt with renal ada diet information and RDN name and phone number. RDN following.
--- NOTE | 2016-11-05 19:20 | NUR ---
PT. IN BED ON FIRST STEP MATTRESS. MULTIPLE FAMILY MEMBERS PRESENT AND VISITING. PT. JUST FINISHED IN-ROOM DIALYSIS ABOUT 15 MINS. AGO. ASSESSMENT COMPLETED. NO VOICED NEEDS AT THIS TIME AND HE HAS HIS CALL LIGHT WITHIN REACH.
--- NOTE | 2016-11-05 22:30 | NUR ---
PT. IN BED ON THE FIRST STEP MATTRESS AND IS RESTING WITH EYES CLOSED AND RESP. DEEP AND EVEN. ASLEEP IN RECLINER CHAIR NEXT TO HIM. CALL LIGHT WITHIN REACH.
--- NOTE | 2016-11-06 02:05 | NUR ---
PT. IN BED ON FIRST STEP MATTRESS WITH HOB UP FOR COMFORT. EYES CLOSED AND RESP. EVEN. SPOUSE ASLEEP IN RECLINER NEXT TO PT. CALL LIGHT WITHIN REACH.
[2016-11-06 04:00] VITALS: BP 168/68
--- NOTE | 2016-11-06 04:09 | NUR ---
PT. IN BED WITH HOB UP FOR COMFORT AND IS ON A FIRST STEP MATTRESS. AT BEDSIDE IN RECLINER AND IS AWAKE AND DENIES ANY NEEDS AT THIS TIME. CALL LIGHT REMAINS WITHIN REACH.
[2016-11-06 05:39] LABS: BASOPHILS 0.3 % (0-2); EOSINOPHILS 8.6 % (0-7); HEMATOCRIT 26.5 % (42.0-54.0); IMMATURE GRANULOCYTES 0.2 % (0-5); LYMPHOCYTES 5.5 % (15-50); MCH 25.7 pg (26.0-34.0); MCHC 30.2 g/dL (31.0-37.0); MCV 85.2 fL (80.0-100.0); MEAN PLATELET VOLUME 10.7 fL (7.4-10.4); MONOCYTES 10.1 % (2-11); NEUTROPHILS 75.3 % (40-80); RBC 3.11 10x6/uL (4.20-6.10); RDW 20.1 % (11.5-14.5); WBC 8.7 10x3/uL (4.8-10.8)
[2016-11-06 05:56] LABS: PLATELET COUNT 142 10x3/uL (130-400)
[2016-11-06 06:18] LABS: ANION GAP 13.5 mmol/L (8-16); CALCIUM 7.7 mg/dL (8.5-10.1); CARBON DIOXIDE 26.3 mmol/L (21.0-32.0); POTASSIUM - SERUM 3.8 mmol/L (3.5-5.1)
[2016-11-06 06:19] LABS: CREATININE - SERUM 3.5 mg/dL (0.6-1.3)
--- NOTE | 2016-11-06 07:00 | NUR ---
RECEIVED REPORT. ASSUMED CARE OF PATIENT. ALERT/ORIENTED. AT BEDSIDE. 1ST STEP OVERLAY PATENT. DENIES NEEDS AT THIS TIME. NO DISTRESS. RESP EVEN AND UNLABORED.
[2016-11-06 08:00] VITALS: BP 147/48
--- NOTE | 2016-11-06 08:46 | OP ---
PATIENT NAME: DEVAUGHN LLAMAS MEDICAL RECORD: [id number] :[birth year] LOCATION:D. D.2133 ADMISSION DATE:11/01/16 SURGEON: ÁLVARO MCPHERSON MD DATE OF OPERATION: 11/05/2016 SURGEON: Álvaro Mcpherson MD PREOPERATIVE DIAGNOSIS: End-stage renal disease. POSTOPERATIVE DIAGNOSIS: End-stage renal disease. PROCEDURE PERFORMED: 1. Removal of right Trialysis hemodialysis catheter. 2. Placement of right femoral HemoSplit dialysis catheter. ANESTHESIA: Local. COMPLICATIONS: None. SPECIMENS: None. Case was clean. ESTIMATED BLOOD LOSS: 10 cc. OPERATIVE COURSE: After consent was obtained, the patient was taken to the operating room and placed in supine position on the operating table. Monitored anesthesia care was provided. A timeout was taken to confirm the correct patient and procedure. Local anesthetic was injected through the previous right femoral site. A 0.035 Glidewire was placed through the Trialysis catheter and advanced. The Trialysis catheter was removed. The dilators were then passed over the Glidewire in a standard Seldinger fashion. The tract was dilated. The dilator and breakaway sheath were passed over the wire and into the femoral vein. The hemodialysis catheter was passed over the wire through the breakaway sheath and advanced. The breakaway sheath was removed. The hub was buried in the subcutaneous tissue. A Biopatch was placed. The catheter was secured to the skin using 2-0 nylon suture. The guidewire was removed. Both ports were aspirated and flushed. The catheter was then flushed with 5000 units of heparin and 30 cc of normal saline. Pressure dressing was applied. At the end of the case, all needle and instrument counts were correct. The patient was transferred to recovery room in satisfactory condition. TRANSINT:[id number] Voice Confirmation ID: [id number] DOCUMENT ID: [id number] ÁLVARO MCPHERSON MD at 0846 CC: [id number] DICTATION DATE: 11/05/16 1431 LAUNDERER HAND: 11/06/16 0140 ADM IN [place] [id number] [place] [address]
--- NOTE | 2016-11-06 08:55 | NUR ---
PT OOB TO CHAIR VIA PT. NO DISTRESS.
[2016-11-06 12:00] VITALS: BP 108/54
--- NOTE | 2016-11-06 12:17 | NUR ---
FSBS 214. 4 U NITS HUMALOG ADMINISTERED AT THIS TIME PER SLIDING SCALE.
--- NOTE | 2016-11-06 13:13 | NUR ---
SPOKE WITH FLORA, RN IN REHAB ABOUT PATIENTS REFERRAL FOR IP REHAB. SHE STATED THAT THE PATIENT WAS PRIVATE PAY SECONDARY TO INSURANCE DENYING HIS STAY (TWICE NOW). SHE HAD MENTIONED THAT [facility] T[facility] WENT INTO THE ROOM AND DISCUSSED THIS WITH THE PATIENT AND HIS . THEY STILL WANT TO RETURN TO OUR IP REHAB UNIT AND NOT GO TO [facility]. FLORA WAS CALLED BACK AND THIS WAS RELAYED. SHE STATED SHE WILL WORK ON HIS PREAUTH WITH THE INSURANCE COMPANY.
--- NOTE | 2016-11-06 13:40 | NUR ---
Rehab Note- Acute Rehab Prescreen order received. The patient is [facility] and will require a PreAuth prior to IRF stay. Will begin the PreAuth process. Thank you for this referral! Марина Kenyon RN Clinical Liaison, [facility] Rehab
--- NOTE | 2016-11-06 14:19 | NUR ---
Patient Name: DEVAUGHN LLAMAS Encounter No: [id number] : 1935 Primary Insurance: UHCMCRSOL Anticipated DC Date: 11-06-2016 Planned Disposition: Inpatient Rehab External Planned Provider: [facility] INPATIENT REHAB DCP follow-up note: CM RECEIVED MESSAGE THAT PT IS STABLE FOR DISCHARGE TO REHAB. CM MET WITH PT IN ROOM, DISCUSSED REHAB OPTIONS. PT REPORTS WANTING TO RETURN TO [facility] INPATIENT REHAB. PT FEELS HE IS READY TO GO TO REHAB AND CAN PARTICIPATE FULLY. IMPORTANT MESSAGE FROM MEDICARE PROVIDED AND DISCUSSED. CM WAITING INSURANCE AUTHORIZATION OR DENIAL FOR INPATIENT REHAB; PT PLANS TO PRIVATE PAY IF INSURANCE DENIES. Maik Hung, CASE MANAGEMENT
--- NOTE | 2016-11-06 15:13 | NUR ---
DRESSING CHANGE COMPLETED TO RIGHT ELBOW AT THIS TIME. PACKED WITH 1/2 IODOFORM GAUZE. TOLERATED DRESSING CHANGE WELL. NO DISTRESS.
[2016-11-06 16:00] VITALS: BP 165/48
--- NOTE | 2016-11-06 16:50 | NUR ---
FSBS 459. [facility] SC[facility].
--- NOTE | 2016-11-06 16:51 | NUR ---
FSBS 254. 6 UNITS HUMALOG ADMINISTERED PER SLIDING SCALE.
[2016-11-06 19:00] VITALS: BP 158/45
--- NOTE | 2016-11-06 19:10 | NUR ---
PT IN BED WITH HOB UP FOR COMOFRT. VISITING WITH . ALERT & ORIENTED. DIALYSIS M,W,F. FSBS ACHS. TELEMETRY. 1ST STEP AIR MATTRESS. NO 02. RIGHT UPPER ARM SLAINE LOC. RESERVE LEFT ARM. PT HAS NO COMPLAINTS AT THIS TIME. BED IN LOWEST POSITION AND CALL LIGHT WITHIN REACH.
[2016-11-07] VITALS: BP 135/59
--- NOTE | 2016-11-07 01:27 | NUR ---
PT IN BED WITH HOB UP FOR COMFORT. CAREGIVER IN ROOM. EYES CLOSED. CHEST RISING AND FALLING. BED IN LOWEST POSITION AND CALL LIGHT WITHIN REACH.
[2016-11-07 04:00] VITALS: BP 93/70
[2016-11-07 05:55] LABS: BASOPHILS 0.3 % (0-2); EOSINOPHILS 13.4 % (0-7); HEMATOCRIT 27.2 % (42.0-54.0); IMMATURE GRANULOCYTES 0.2 % (0-5); LYMPHOCYTES 9.5 % (15-50); MCH 25.6 pg (26.0-34.0); MCHC 29.4 g/dL (31.0-37.0); MCV 87.2 fL (80.0-100.0); MEAN PLATELET VOLUME 10.1 fL (7.4-10.4); NEUTROPHILS 68.6 % (40-80); PLATELET COUNT 158 10x3/uL (130-400); RBC 3.12 10x6/uL (4.20-6.10); WBC 8.9 10x3/uL (4.8-10.8)
[2016-11-07 06:19] LABS: ANION GAP 14.4 mmol/L (8-16); CARBON DIOXIDE 25.4 mmol/L (21.0-32.0); CREATININE - SERUM 4.3 mg/dL (0.6-1.3); PHOSPHOROUS 4.3 mg/dL (2.5-4.9); POTASSIUM - SERUM 3.8 mmol/L (3.5-5.1)
[2016-11-07 07:00] VITALS: BP 159/54
--- NOTE | 2016-11-07 08:15 | NUR ---
PT RESTING IN BED WITH EYES OPEN CALL LIGHT IN REACH NO PROBLEMS WILL MONITER
--- NOTE | 2016-11-07 10:14 | NUR ---
IN DIALYSIS AT THIS TIME. WILL CONT. PLAN OF CARE.
[2016-11-07 12:00] VITALS: BP 182/58
--- NOTE | 2016-11-07 12:40 | NUR ---
Rehab Note- received notification to fax clinical to Gabby Rodriguez with [facility] for PreAuth. Faxed to [phone]. Awaiting notifications of approval at this time. Марина Kenyon RN Clinical Liaison, [facility] [place] Rehab
[2016-11-07 16:00] VITALS: BP 152/70
--- NOTE | 2016-11-07 17:40 | NUR ---
PT RESTING IN BED WITH EYES OPEN CALL LIGHT IN REACH NO PROBLEMS WILL MONITER
[2016-11-07 19:00] VITALS: BP 157/72
--- NOTE | 2016-11-07 20:00 | NUR ---
REPORT RECEIVED AND CARE ASSUMED. AWAKE AND ALERT RESTING IN BED WITH AT BEDSIDE. NO VOICED NEEDS. SHIFT ASSESSMENT COMPLETED PER FLOW SHEET. BED LOW AND CALL LIGHT IN EASY REACH. WILL CONTINUE TO MONITOR.
[2016-11-08] VITALS: BP 130/43
[2016-11-08 04:00] VITALS: BP 181/55
[2016-11-08 05:15] LABS: BASOPHILS 0.5 % (0-2); HEMATOCRIT 26.4 % (42.0-54.0); HEMOGLOBIN 7.9 g/dL (13.5-17.5); IMMATURE GRANULOCYTES 1.6 % (0-5); LYMPHOCYTES 7.2 % (15-50); MCH 25.6 pg (26.0-34.0); MCHC 29.9 g/dL (31.0-37.0); MCV 85.4 fL (80.0-100.0); MEAN PLATELET VOLUME 11.7 fL (7.4-10.4); MONOCYTES 11.2 % (2-11); NEUTROPHILS 68.5 % (40-80); PLATELET COUNT 150 10x3/uL (130-400); RBC 3.09 10x6/uL (4.20-6.10); RDW 20.4 % (11.5-14.5); WBC 10.5 10x3/uL (4.8-10.8)
[2016-11-08 05:36] LABS: ANION GAP 13.7 mmol/L (8-16); CALCIUM 7.9 mg/dL (8.5-10.1); CARBON DIOXIDE 25.7 mmol/L (21.0-32.0); CREATININE - SERUM 4.4 mg/dL (0.6-1.3); PHOSPHOROUS 4.7 mg/dL (2.5-4.9); POTASSIUM - SERUM 4.4 mmol/L (3.5-5.1)
--- NOTE | 2016-11-08 08:00 | NUR ---
INTRODUCED MYSELF TO PT PRIMARY RN FOR TODAYS SHIFT. PT IS A&O RESTING QUIETLY IN BED WITH AT BEDSIDE. SHIFT ASSESSMENT COMPLETED. DRSG CHANGE TO R.ELBOW COMPLETED. PTS INCISION IS HEALING WELL, EDGES APPROXIMATED. NO S/S OF INFECTION NOTED, NO SWELLING AT SITE OR DRAINAGE. CLEANSED WITH WOUND CLEANSER PATTED DRY AND PACKED WITH IDOFORM PACKING LOOSELY, THEN PADDED AND WRAPPED WITH KERLIX. PT HAS 3 SMALL SKIN TEARS NEAR ELBOW AND INCISION ON HIS R.ARM SO I APPLIED ADAPTIC AND ALSO WRAPPED WITH KERLIX. PT VOICED THANKS. PT REFUSED HIS MORNING PHOSLO R/T NOT BEING HUNGRY OR WANTING TO EAT. PT HAS R.UPPER ARM PIV THAT IS SL AND FLUSHED WELL WITHOUT ANY RESISTANCE MET. CHANGED PTS R.THIGH HEMESPLIT DRSG USING AND APPLIED NEW BIOPATCH AND DRSG. PT DENIES ANY FURTHER NEEDS AT THIS TIME AND HAS AT BEDSIDE. CL IN REACH, BED IN LOWEST, SIDE RAILS X2. WILL CTM.
[2016-11-08 08:57] VITALS: BP 194/82
--- NOTE | 2016-11-08 10:20 | NUR ---
MANUAL BP TAKEN R/T MACHINE READING HIGHER THAN NORM AND CONCERNED. R.ARM MANUAL BP 128/78.
[2016-11-08 12:13] VITALS: BP 124/78
--- NOTE | 2016-11-08 12:18 | NUR ---
FSBS 213 PT REC'D 4 UNITS PER SS INSULIN. PT DENIES ANY PAIN OR CURRENT NEEDS RESTING QUIETLY WITH FAMILY AT BEDSIDE. CL IN REACH. WILL CTM.
--- NOTE | 2016-11-08 16:30 | NUR ---
L.UPPER ARM STARTED TO LEAK (WEEPING EDEMA) NONADHERENT DRSG PLACED AND ARM WRAPPED WITH KERLIX. PT VOICED THANKS. AT BEDSIDE. PT DENIES ANY FURTHER NEEDS AT THIS TIME. CL IN REACH, BED IN LOWEST, SIDE RAILS X2. WILL CTM.
[2016-11-08 18:58] VITALS: BP 131/74
--- NOTE | 2016-11-08 22:35 | NUR ---
Recieved patient and report, patient alert and oriented, family at bedside, bed in low position and locked, bedside table and call light in reach, manual B/P 128/84 on right leg, FSBS 96 at 2100, patient resting quietly no acute distress noted, no needs voiced, will CPOC.
[2016-11-09] VITALS: BP 85/38
[2016-11-09 06:41] LABS: BASOPHILS 0.8 % (0-2); EOSINOPHILS 12.6 % (0-7); HEMATOCRIT 25.8 % (42.0-54.0); HEMOGLOBIN 7.9 g/dL (13.5-17.5); IMMATURE GRANULOCYTES 1.4 % (0-5); LYMPHOCYTES 8.6 % (15-50); MCH 26.1 pg (26.0-34.0); MCHC 30.6 g/dL (31.0-37.0); MCV 85.1 fL (80.0-100.0); MONOCYTES 10.3 % (2-11); NEUTROPHILS 66.3 % (40-80); PLATELET COUNT 105 10x3/uL (130-400); RBC 3.03 10x6/uL (4.20-6.10); RDW 20.1 % (11.5-14.5); WBC 9.9 10x3/uL (4.8-10.8)
[2016-11-09 06:46] LABS: ANION GAP 18.8 mmol/L (8-16); CREATININE - SERUM 4.9 mg/dL (0.6-1.3); PHOSPHOROUS 5.1 mg/dL (2.5-4.9); POTASSIUM - SERUM 4.8 mmol/L (3.5-5.1)
--- NOTE | 2016-11-09 08:37 | NUR ---
INTRODUCED MYSELF TO PT PRIMARY RN FOR TODAYS SHIFT. SHIFT ASSESSMENT COMPLETED. PT IS A&O RESTING QUIETLY IN BED WITH AT BEDSIDE. PT IS EAGER FOR DIALYSIS TODAY AND HOPING HIS BP SUSTAINS WHILE HE DOES. PT WILL RECIEVE A UNIT OF PRBCS ON DIALYSIS TODAY AND CONSENTS ARE IN CHART FROM LAST TRANSFUSION AND PT VERBALIZED UNDERSTANDING AND WANTS ANOTHER UNIT TO BE GIVEN. FLUSHED PTS R.UPPER ARM PIV AND IT FLUSHED WITHOUT ANY DIFFICULTIES NOTED DRSG CDI AND SWAB CAPS IN USE. PTS R.THIGH HEMESPLIT DRSG IS CDI WITH BIOPATCH IN PLACE AND CAPS IN PLACE. CHANGED PTS R.ARM DRSG INCISION HEALING WELL NO S/S OF INFECTION OR IRRITATION NOTED. CLEANSED WITH WOUND CLEANSER AND PACKED LOOSELY ORDERED. PT HAS 4 SMALL SKIN TEARS IN VARIOUS SPOTS ON BILAT ARMS, COVERED EACH TEAR WITH ADAPTIC THEN WRAPPED LOOSELY WITH KERLIX. PT VOICED THANKS AND STATES IT FEELS BETTER. PT HAS VERY THIN FRAGILE SKIN ON BILAT ARMS AND VERY DARK BRUISED ALL OVER. PT DENIES ANY CURRENT PAIN OR NEEDS AND TOOK MORNING MEDS WITHOUT ANY DIFFICULTIES. CL IN REACH, BED IN LOWEST, SIDE RAILS X2, AIR MATTRESS OVERLAY IN PLACE. WILL CPOC.
[2016-11-09 08:57] VITALS: BP 154/65
--- NOTE | 2016-11-09 09:55 | NUR ---
Rehab Note- Recevied call from Rasta with [facility], stated denied Mr Fay an acute rehab stay that his skill level could be treated at a lower level of care and does not require a PreAuth for a SNF stay. A peer to peer can be done by setting up a call by contacting Rasta at [phone]. Марина Kenyon RN Clinical Liaison, [facility] Rehab
--- NOTE | 2016-11-09 10:31 | NUR ---
BROUGHT PT DOWN TO DIALYSIS. INSTRUCTED NURSES TO DO MANUAL BP AND TO CALL ME IF PT STARTS TO FEEL BAD BECAUSE PT STATES "I FEEL BETTER IF YOU CAN BE THERE WITH ME" UPON DROPPING HIM OFF TO DIALYSIS MANUAL BP 134/78. WILL CTM.
--- NOTE | 2016-11-09 12:47 | NUR ---
PT BACK FROM DIALYSIS. VSS. PT TOLERATED WELL AND BP DIDNT DROP PER DIALYSIS NURSE. PT IN BED RESTING AND DENIES WANTING TO EAT LUNCH AT THIS TIME. CL IN REACH, NO FURTHER NEEDS AT THIS TIME. WILL CTM.
--- NOTE | 2016-11-09 16:01 | NUR ---
Rehab Note- Spoke with Alaina with the business office concerning the patient coming to [facility] IR[facility] as private pay, stated Leny sent out an email stating that she had spoken with the patient & & that they plan to make a deposit, uncertain of when. Will continue to follow at this time. Марина Kenyon RN Clinical Liaison, [facility] Rehab
[2016-11-09 17:00] VITALS: BP 130/85
--- NOTE | 2016-11-09 19:59 | NUR ---
PT AWAKE, ALERT, ORIENTED, LYING IN BED, DENIES ANY NEEDS. FAMILY/FRIEND AT BEDSIDE. CONTINUE TO MONITOR CLOSELY.
--- NOTE | 2016-11-10 03:29 | NUR ---
PT RESTING COMFORTABLY, EYES CLOSED, RESPIRATIONS EVEN AND UNLABORE. DAUGHTER/FAMILY AT BEDSIDE. CONTINUE TO MONITOR CLOSELY.
[2016-11-10 04:00] VITALS: BP 144/96
[2016-11-10 05:29] LABS: ANION GAP 16.8 mmol/L (8-16); CALCIUM 8.1 mg/dL (8.5-10.1); CARBON DIOXIDE 23.5 mmol/L (21.0-32.0); CREATININE - SERUM 4.3 mg/dL (0.6-1.3); PHOSPHOROUS 4.6 mg/dL (2.5-4.9); POTASSIUM - SERUM 4.3 mmol/L (3.5-5.1)
--- NOTE | 2016-11-10 07:47 | NUR ---
AM ROUNDS - PT IN BED AND APPEARS TO BE SLEEPING WITH EQUAL AND NON LABORED BREATHING. NON SKID SOCKS ON. DSG TO RIGHT HAND AND ARM AND LEFT ARM. YELLOW BAND ON. SCDS ARE OFF AT THIS TIME. SIDE RAILS UP X2. WILL CONTINUE TO MONITOR
[2016-11-10 11:07] VITALS: BP 103/49
--- NOTE | 2016-11-10 13:36 | NUR ---
PT IN BED AND APPEARS TO BE SLEEPING WITH EQUAL AND NON LABORED BREATHING AND MALE MEMBER AT BEDSIDE. WILL CONTINUE TO MONITOR
[2016-11-10 13:50] LABS: BASOPHILS 0.5 % (0-2); EOSINOPHILS 7.5 % (0-7); HEMATOCRIT 29.6 % (42.0-54.0); IMMATURE GRANULOCYTES 1.5 % (0-5); MCH 25.9 pg (26.0-34.0); MCHC 30.4 g/dL (31.0-37.0); MCV 85.3 fL (80.0-100.0); MEAN PLATELET VOLUME 11.8 fL (7.4-10.4); MONOCYTES 11.3 % (2-11); NEUTROPHILS 70.2 % (40-80); RBC 3.47 10x6/uL (4.20-6.10); RDW 20.1 % (11.5-14.5); WBC 8.4 10x3/uL (4.8-10.8)
[2016-11-10 13:52] LABS: PLATELET COUNT 137 10x3/uL (130-400)
[2016-11-10 16:00] VITALS: BP 169/67
--- NOTE | 2016-11-10 20:00 | NUR ---
PT RESTING IN BED WITH AT BEDSIDE. ALERT/ORIENTED. BOTH ARMS WITH DRESSINGS IN PLACE. VSS. SR PER TELEMETRY. HAS RIGHT THIGH HEMOSPLIT. PIV TO KEERTHI SALINE LOCKED. RESERVE LEFT ARM FOR OLD AVF. ON 1ST STEP OVERLAY. USING URINAL TO VOID. CALLL LIGHT IN REACH. CPOC.
[2016-11-10 20:30] VITALS: BP 135/55
[2016-11-11 04:00] VITALS: BP 141/47
--- NOTE | 2016-11-11 05:47 | NUR ---
AM MEDS GIVEN. PT HAS RESTED WELL THIS NIGHT. CPOC.
[2016-11-11 06:09] LABS: BASOPHILS 0.2 % (0-2); EOSINOPHILS 6.6 % (0-7); HEMATOCRIT 31.2 % (42.0-54.0); HEMOGLOBIN 9.5 g/dL (13.5-17.5); IMMATURE GRANULOCYTES 0.1 % (0-5); LYMPHOCYTES 5.3 % (15-50); MCH 26.2 pg (26.0-34.0); MCHC 30.4 g/dL (31.0-37.0); MCV 86.2 fL (80.0-100.0); MEAN PLATELET VOLUME 10.2 fL (7.4-10.4); MONOCYTES 13.2 % (2-11); NEUTROPHILS 74.6 % (40-80); RBC 3.62 10x6/uL (4.20-6.10)
[2016-11-11 06:12] LABS: PLATELET COUNT 192 10x3/uL (130-400)
[2016-11-11 06:29] LABS: % SATURATION 13 % (15-55); IRON 30 ug/dl (35-150); TOTAL IRON BIND CAPACITY 227 ug/dl (260-445); UNSAT IRON BIND CAPACITY 197 ug/dl (150-375)
[2016-11-11 06:46] LABS: ANION GAP 15.2 mmol/L (8-16); CALCIUM 8.8 mg/dL (8.5-10.1); CARBON DIOXIDE 24.6 mmol/L (21.0-32.0); CREATININE - SERUM 4.6 mg/dL (0.6-1.3); POTASSIUM - SERUM 3.8 mmol/L (3.5-5.1)
--- NOTE | 2016-11-11 07:52 | NUR ---
AM ROUNDING- RECEIVED REPORT FROM PILING CUTTER NURSE SHANA. PT IS CURRENTLY LAYING IN BED ON BACK WITH EYES CLOSED RESTING. IS AT BEDSIDE. ON FIRST STEP OVERLAY MATTRESS. ON ROOM AIR. ON MONITOR SHOWING SR, HR 84 WITH BIGMENY (PER ALVARADO WITH TELEMETRY). IV SEEN TO RIGHT UPPER ARM THAT IS CURRENTLY SALINE LOCKED. RESERVE LEFT ARM FOR OLD AVF THAT PER REPORT DOES NOT WORK. RIGHT THIGH HEMOSPLIT SEEN. NO NEED AT CURRENT TIME. WILL CONTINUE TO MONITOR AND CONTINUE WITH PLAN OF CARE.
[2016-11-11 11:52] VITALS: BP 181/81
[2016-11-11 16:00] VITALS: BP 190/62
--- NOTE | 2016-11-11 16:00 | NUR ---
CHANGED PTS DRESSINGS TO BILATERAL UPPER ARMS AND RIGHT HAND. WOUND TO LEFT UPPER ARM- BLACK SCAB SEEN WITH PINK/RED WOUND EDGES. NO DRAINAGE NOR ODOR. CLEANED SITE WITH WOUND CLEANSER AND COVERED SITE WITH DRY 4X4 GAUZE PADS AND WRAPPED WITH KERLIX. WOUND TO RIGHT UPPER ARM- WOUND BED TO RIGHT ELBOW MEASURING 4CM X 1.5CM. WOUND BED IS PINK. NO DRAINAGE NOR ODOR. CLEANED WOUND BED WITH WOUND CLEANSER, PACKED WOUND WITH 1/2" IODOFORM PACKING, COVERED SITE WITH 4X4 GAUZE PADS, AND SECURED WITH KERLIX. SKIN TEAR TO RIGHT HAND- SKIN TEAR SEEN TO RIGHT HAND MEASURING 3.5CM X 1CM. BLEEDING SEEN. CLEANED AREA WITH WOUND CLEANSER, COVERED SITE WITH 4X4 GAUZE PADS, AND WRAPPED WITH KERLIX. TOLERATED WELL.
--- NOTE | 2016-11-11 18:16 | NUR ---
PT IS CURRENTLY LAYING IN BED ON BACK WITH EYES CLOSED RESTING. IS AT BEDSIDE. NO NEED AT CURRENT TIME. WILL CONTINUE TO MONITOR.
--- NOTE | 2016-11-11 19:40 | NUR ---
RESUMED CARE OF PT, LYING IN BED RESPIRATIONS EVEN AND UNLABORED ON ROOM AIR. ASSISSTED OFF THE BED MICHAUD. 90 SR ON TELEMETRY. 1ST STEP OVERLAY INFLATED. CALL LIGHT IN REACH. WILL CONTINUE TO MONITOR. SEE NURSE ASSESSMENT.
[2016-11-11 21:30] VITALS: BP 191/68
--- NOTE | 2016-11-12 00:42 | NUR ---
LYING IN BED WITH EYES CLOSED, CALL LIGHT IN REACH. WILL CONTINUE WITH PLAN OF CARE.
[2016-11-12 01:07] VITALS: BP 152/57
[2016-11-12 05:26] VITALS: BP 110/48
--- NOTE | 2016-11-12 06:48 | NUR ---
NO CHANGES FROM PREVIOUS ASSESSMENT, CALL LIGHT IN REACH.
[2016-11-12 07:43] LABS: BASOPHILS 0.6 % (0-2); EOSINOPHILS 6.2 % (0-7); HEMATOCRIT 30.1 % (42.0-54.0); HEMOGLOBIN 9.4 g/dL (13.5-17.5); IMMATURE GRANULOCYTES 2.1 % (0-5); LYMPHOCYTES 7.3 % (15-50); MCH 26.6 pg (26.0-34.0); MCHC 31.2 g/dL (31.0-37.0); MCV 85.3 fL (80.0-100.0); MEAN PLATELET VOLUME 11.2 fL (7.4-10.4); MONOCYTES 12.9 % (2-11); NEUTROPHILS 70.9 % (40-80); PLATELET COUNT 141 10x3/uL (130-400); RBC 3.53 10x6/uL (4.20-6.10); RDW 20.3 % (11.5-14.5); WBC 9.8 10x3/uL (4.8-10.8)
--- NOTE | 2016-11-12 07:45 | NUR ---
INTRODUCED MYSELF TO PT PRIMARY RN FOR TODAYS SHIFT. PT IS A&O AND RESTING QUIETLY IN BED WITH AT BEDSIDE. PT STATES HE HAS HAD AN OVERALL GOOD WEEKEND AND IS FEELING BETTER BUT STILL TIRED ALL THE TIME. ENCOURAGED PT TO TRY AND EAT MORE AND WORK WITH THERAPY TO KEEP HIS STRENGTH UP. PT VERBALIZED UNDERSTANDING AND DENIES ANY CURRENT PAIN OR NEEDS AT THIS TIME. CL IN REACH, BED IN LOWEST, SIDE RAILS X2, AIR MATTRESS IN PLACE AND INFLATED. SCDS CURRENTLY OFF AND PT WILL WEAR THEM LATER.
[2016-11-12 07:46] LABS: ANION GAP 14.6 mmol/L (8-16); CALCIUM 8.2 mg/dL (8.5-10.1)
[2016-11-12 07:47] LABS: POTASSIUM - SERUM 4.6 mmol/L (3.5-5.1)
[2016-11-12 08:19] LABS: THYROID STIMULATING HORMONE 9.56 uIU/mL (0.36-3.74)
--- NOTE | 2016-11-12 10:08 | NUR ---
DIALYSIS NURSE CALLED TO TELL ME PT WAS FEELING NAUSEATED. BROUGHT PT SOME ZOFRAN AND PTS BP IS STABLE AND RECIEVING DIALYSIS. NO FURTHER NEEDS NOTED AT THIS TIME.
--- NOTE | 2016-11-12 12:56 | NUR ---
PT RECIEVED TO ROOM FROM DIALYSIS. PT DENIES PAIN, DENIES ANY OTHER NEEDS AT THIS TIME. BREATHING UNLABORED AND EQUAL, FAMILY PRESENT IN ROOM. WILL CTM.
--- NOTE | 2016-11-12 13:58 | NUR ---
FLUSHED R.UPPER ARM PIV AND INITIATED IV IRON TO BE INFUSED OVER 60MINS. PT RESTING IN BED WITH AT BEDSIDE AND DENIES ANY CURRENT NEEDS. CL IN REACH, BED IN LOWEST, SIDE RAILS X2. WILL CPOC.
--- NOTE | 2016-11-12 14:31 | NUR ---
DRSG CHANGED TO R.ELBOW. CLEANSED WITH WOUND CLEANSER AND PATTED DRY, THEN APPLIED IDOFORM PACKING LOOSELY AND WRAPPED WITH KERLIX. SITE IS HEALING GREATLY FROM WHEN I FIRST ASSESSED IT 2 WEEKS AGO. PT DENIES ANY FURTHER NEEDS AT THIS TIME. CL IN REACH. WILL CPOC.
[2016-11-12 16:00] VITALS: BP 161/62
--- NOTE | 2016-11-12 16:32 | NUR ---
WOUND CARE REASSESSMENT: WOUND TO RIGHT ELBOW IS HEALING BUT WILL STILL REQUIRE PACKING ON ONE EDGE. THE WOUND BED IS RED AND PERIWOUND IS NORMAL. BLISTER TO UPPER INNER RIGHT ARM HAS DRIED AND IS HEALING. WOUND TO LEFT UPPER ARM HAS SCABBED OVER. RECOMMEND CONTINUING SAME ORDERS. WILL CONTINUE FOLLOWING.
--- NOTE | 2016-11-12 18:24 | NUR ---
PT RECIEVING BED
--- NOTE | 2016-11-12 18:38 | NUR ---
PT RECIEVING BED BATH FROM . PT STATES HE IS FEELING PRETTY GOOD BUT STILL TIRED USUAL. PT DENIES ANY CURRENT PAIN OR NEEDS. CL IN REACH, BED IN LOWEST, SIDE RAILS X2 AND AIR MATTRESS IN PLACE. WILL REPORT TO NIGHTSHIFT NURSE.
[2016-11-12 19:00] VITALS: BP 144/47
--- NOTE | 2016-11-12 20:05 | NUR ---
RESUMED CARE OF PT, LYING IN BED RESPIRATIONS EVEN AND UNLABORED ON ROOM AIR. 89 SR ON TELEMETRY. 1ST STEP OVERLAY INFLATED. RIGHT UPPER ARM SALINE LOCKED. AT BEDSIDE. PLAN OF CARE DISCUSSED. CALL LIGHT IN REACH. WILL CONTINUE TO MONITOR. SEE NURSE ASSESSMENT.
[2016-11-13] VITALS: BP 159/49
--- NOTE | 2016-11-13 01:27 | NUR ---
REPOSITIONED IN BED, BUDREAX'S APPLIED TO GROIN AND BUTTOCK.
[2016-11-13 04:00] VITALS: BP 158/59
--- NOTE | 2016-11-13 06:42 | NUR ---
NO CHANGES FROM PREVIOUS ASSESSMENT, CALL LIGHT IN REACH. WILL CONTINUE WITH PLAN OF CARE.
[2016-11-13 06:56] LABS: BASOPHILS 0.3 % (0-2); EOSINOPHILS 5.8 % (0-7); HEMATOCRIT 30.1 % (42.0-54.0); HEMOGLOBIN 9.1 g/dL (13.5-17.5); IMMATURE GRANULOCYTES 0.2 % (0-5); MCH 26.8 pg (26.0-34.0); MCHC 30.2 g/dL (31.0-37.0); MEAN PLATELET VOLUME 10.7 fL (7.4-10.4); MONOCYTES 15.1 % (2-11); NEUTROPHILS 72.6 % (40-80); PLATELET COUNT 113 10x3/uL (130-400); RBC 3.39 10x6/uL (4.20-6.10); RDW 20.8 % (11.5-14.5); WBC 9.1 10x3/uL (4.8-10.8)
[2016-11-13 06:59] LABS: MCV 88.8 fL (80.0-100.0)
[2016-11-13 07:14] LABS: ALBUMIN 2.2 g/dL (3.4-5.0); ANION GAP 13.8 mmol/L (8-16); BILIRUBIN - TOTAL 0.59 mg/dL (0.2-1.3); CALCIUM 8.5 mg/dL (8.5-10.1); CARBON DIOXIDE 27.1 mmol/L (21.0-32.0); PHOSPHOROUS 4.2 mg/dL (2.5-4.9); PROTEIN - SERUM 5.9 g/dL (6.4-8.2)
[2016-11-13 07:16] LABS: CREATININE - SERUM 3.5 mg/dL (0.6-1.3); POTASSIUM - SERUM 3.9 mmol/L (3.5-5.1)
--- NOTE | 2016-11-13 07:45 | NUR ---
REC'D BEDSIDE SHIFT REPORT. PT RESTING QUIETLY IN BED WITH EYES CLOSED. PTS AT BEDSIDE AND STATES HE HAS BEEN NAUSEATED ALL NIGHT BUT SLEPT OKAY. WILL TRY TO STAY AHEAD OF PTS NAUSEA TODAY. NO CURRENT NEEDS AT THIS TIME. WILL CTM.
[2016-11-13 08:17] VITALS: BP 177/54
--- NOTE | 2016-11-13 10:03 | NUR ---
Patient Name: DEVAUGHN LLAMAS Encounter No: [id number] : 1935 Primary Insurance: [employer] Anticipated DC Date: 11-13-2016 Planned Disposition: Inpatient Rehab External Planned Provider: [facility] DCP follow-up note: CM RECEIVED ORDER FOR REHAB EVAL, MET WITH PT AND SPOUSE IN ROOM. PT AND SPOUSE DO NOT WANT TO CONSIDER [facility] AND WANT TO RETURN BACK TO [facility]. PT'S SPOUSE REPORT PT'S INSURANCE WILL NOT PAY FOR INPATIENT REHAB AND SHE HAS BEEN WAITING ON REHAB TO LET HER KNOW WHAT FINANCIAL ARRANGEMENTS SHE NEEDS TO MAKE TO MOVE PT BACK TO REHAB. PT'S SPOUSE IS GOING TO ADMINISTRATION THIS MORNING TO MAKE ANY NECESSARY ARRANGEMENTS FOR PT TO GO TO INPATIENT REHAB. PT'S SPOUSE IS ALSO IN PROCESS OF ATTEMPTING TO CONTACT HER SCANNING COORDINATOR TO ASSIST WITH ANSWERING HER INSURANCE QUESTIONS. IMPORTANT MESSAGE FROM MEDICARE PROVIDED AND DISCUSSED. CM WAITING ON PT'S SPOUSE TO MAKE NECESSARY FINANCIAL ARRANGEMENTS FOR INPATIENT REHAB AND FOR ADMISSION DETERMINATION FROM INPATIENT REHAB. Maik Hung, CASE MANAGEMENT
--- NOTE | 2016-11-13 11:11 | NUR ---
PT SITTING UP IN BEDSIDE CHAIR RESTING COMFORTABLY. PT IS STILL SLIGHTLY NAUSEATED BUT WANTS TO TRY TO EAT LUNCH SO I GAVE HIM A PRE-MED OF ZOFRAN TO HELP. PT ALSO REC'D 2 UNITS OF INSULIN PER SS FOR COVERAGE OF FSBS 196. PT DENIES ANY CURRENT NEEDS AT THIS TIME. CL IN REACH. WILL CTM.
--- NOTE | 2016-11-13 12:31 | NUR ---
PT STILL HAS POOR APPETITE AND BARELY ATE ANY LUNCH. PT READY TO BE PUT BACK IN BED, CALLED THERAPY FOR TRANSFER. NO FURTHER NEEDS AT THIS TIME. WILL CTM.
--- NOTE | 2016-11-13 13:39 | NUR ---
Nutrition follow-up: Diet: Renal ADA consistent CHO Nepro TID PO intake ~25% average of meals Pt has been nauseated for several days now No new wt to assess +BM Will continue to encourage increased po intake. RDN following.
--- NOTE | 2016-11-13 14:37 | NUR ---
RECEIVED A CALL FROM SENIOR TREASURY CONSULTANT, NOTIFYING OF NEED FOR P2P TO BE DONE SECONDARY TO INSURANCE DENIAL FOR REHAB. CALL HAS BEEN PLACED TO DR ARANDA TO DISCUSS WETHER OR NOT HE WOULD BE WILLING TO DO ANOTHER P2P ON THIS PATIENT BEING THAT HE HAS ALREADY DONE ONE IN REGARDS TO HIS HOSPITAL STAY.
[2016-11-13 16:00] VITALS: BP 180/47
--- NOTE | 2016-11-13 19:40 | NUR ---
ALERT/ORIENTED X 4. DENIES PAIN OR ANY NEEDS. IV IN RT UA INTACT SL. FIRST COOK SHOWS 87 SR. DRSG'S ON RT UPPER ARM AND LOWER ARM NOTED C/D/I. RT THIGH HEMESPLIT DRSG C/D/I. ON 1ST STEP OVERLAY AIR MATTRESS. HIS IS PRESENT IN ROOM.
[2016-11-13 19:41] VITALS: BP 145/79
--- NOTE | 2016-11-13 22:25 | NUR ---
ADMIN SCHED MEDS WITH SIPS OF WATER SWALLOWING WITHOUT DIFFICULTY. ADMIN HUMALOG 2 UNITS FOR BS 184. HIS HAD LEFT FOR THE NIGHT. LEFT DOOR OPEN TO MONITOR CLOSELY.
[2016-11-13 23:26] VITALS: BP 198/59
--- NOTE | 2016-11-14 00:07 | NUR ---
ADMIN CLONIDINE 0.1 MG PO PER ORDER FOR SBP >180. RECHECKED AT 178/69 FROM 198/59 PER DOG BATHER'S VITAL SIGNS. WILL CONT TO MONITOR.
--- NOTE | 2016-11-14 02:30 | NUR ---
RESTING WITH EYES CLOSED. RR 18 EVEN U/L. NO SIGNS OR SYMPTOMS OF PAIN OR DISCOMFORT. EMPTIED URINAL OF 30 CC YELLOW URINE. WILL CONT TO MONITOR CLOSELY.
[2016-11-14 03:24] VITALS: BP 154/82
[2016-11-14 07:21] LABS: BASOPHILS 0.4 % (0-2); HEMATOCRIT 30.9 % (42.0-54.0); HEMOGLOBIN 9.3 g/dL (13.5-17.5); IMMATURE GRANULOCYTES 1.2 % (0-5); LYMPHOCYTES 10.3 % (15-50); MCH 26.6 pg (26.0-34.0); MCHC 30.1 g/dL (31.0-37.0); MCV 88.3 fL (80.0-100.0); MEAN PLATELET VOLUME 11.2 fL (7.4-10.4); MONOCYTES 11.4 % (2-11); NEUTROPHILS 70.7 % (40-80); RDW 20.8 % (11.5-14.5); WBC 11.1 10x3/uL (4.8-10.8)
[2016-11-14 07:23] LABS: ANION GAP 13.9 mmol/L (8-16); CALCIUM 8.8 mg/dL (8.5-10.1); CARBON DIOXIDE 25.7 mmol/L (21.0-32.0); CREATININE - SERUM 3.6 mg/dL (0.6-1.3); PHOSPHOROUS 4.4 mg/dL (2.5-4.9)
[2016-11-14 07:30] LABS: POTASSIUM - SERUM 4.6 mmol/L (3.5-5.1)
[2016-11-14 07:33] LABS: PLATELET COUNT 140 10x3/uL (130-400)
--- NOTE | 2016-11-14 07:43 | NUR ---
SPOKE WITH DR ACEVEDO THIS AM. HE STATED HE WOULD DO THE P2P FOR THE PATIENT IN REGARDS TO IPR. WILL WAIT ON THE RESULTS OF THIS.
[2016-11-14 08:00] VITALS: BP 136/89
[2016-11-14 12:00] VITALS: BP 164/91
--- NOTE | 2016-11-14 14:30 | NUR ---
ALERT AND ORIENTED X4. RESTING IN BED. AT BEDSIDE. TRANSPORT VIA BED TO DIALYSIS SUITE. CONTINUE PLAN OF CARE AND SAFETY PRECAUTIONS.
--- NOTE | 2016-11-14 15:26 | NUR ---
CALL RECEIVED FROM [facility] RE[facility]AB INTAKE. SHE STATED THAT THE PATIENTS WAS DOWN IN REHAB QUESTIONING THEM ABOUT WHERE WE WERE IN THE PROCESS OF GETTING THE PATIENT DOWN THERE. EXPLAINED THAT I HAD NOT HEARD ANYTHING. CALL PLACED TO DR ACEVEDO'S OFFICE. MESSAGE LEFT WITH CHARMAINE TO SEE IF THE P2P HAS BEEN DONE YET. WILL WAIT FOR RETURN CALL.
--- NOTE | 2016-11-14 15:43 | NUR ---
This patient's came to the IRF inquiring about the status of her admit to the in-patient rehab. She was informed of the pending peer to peer between Dr Roa and the insurance company. Spoke to Triny Guerrero the patient's CM. Triny states she had given the phone number for the P2P to Dr Roa. Called Gabby Rodriguez with [facility] [phone] to check on the P2P status. Gabby says she has not been contacted regarding a P2P and it was to late anyway, a P2P must be done within 24 hrs of the denial. Once the denial letter is recieved an appeal can be done if physician or patient desires. Called and gave all this information to the patient's CM Triny Guerrero RN. Bia Abdullahi RN Clinical Liaison, Rehab
--- NOTE | 2016-11-14 17:45 | NUR ---
Patient Name: DEVAUGHN LLAMAS Encounter No: [id number] : 1935 Primary Insurance: [employer] Anticipated DC Date: 11-15-2016 Planned Disposition: Inpatient Rehab External Planned Provider: INPATIENT REHAB DCP follow-up note: CM RECEIVED A CALL FROM CASE COLOR CARD MAKER PUSHPA WHO REPORTED THAT SHE HAS SPOKEN TO [facility] AND THEY WILL ACCEPT PT TOMORROW, 11-14-16. WHEN DISCHARGE ORDER RECEIVED, CM TO NOTIFY INPATIENT REHAB FOR BED ASSIGNMENT. Maik Hung, CASE MANAGEMENT
[2016-11-14 20:04] VITALS: BP 160/93
[2016-11-14 23:53] VITALS: BP 169/89
--- NOTE | 2016-11-15 03:15 | NUR ---
PT B/P ELEVATED. SYSTOLIC 217. CLONIDINE 0.1 MG PO GIVEN. WILL MONITOR.
[2016-11-15 03:47] VITALS: BP 217/110
[2016-11-15 06:58] LABS: ANION GAP 12.3 mmol/L (8-16); CALCIUM 8.9 mg/dL (8.5-10.1); CARBON DIOXIDE 27.2 mmol/L (21.0-32.0); CREATININE - SERUM 2.9 mg/dL (0.6-1.3); PHOSPHOROUS 3.5 mg/dL (2.5-4.9); POTASSIUM - SERUM 4.5 mmol/L (3.5-5.1)
--- NOTE | 2016-11-15 07:22 | NUR ---
AM ROUNDS- PT IN BED, DENIES ANY NEEDS AT THIS TIME. AT BEDSIDE, BED LOW AND LOCKED, BEDSIDE RAILS X2. CALL LIGHT IN REACH, NAD NOTED, WILL CONTINUE TO MONITOR.
[2016-11-15 07:48] LABS: BASOPHILS 0.1 % (0-2); EOSINOPHILS 4.7 % (0-7); HEMATOCRIT 31.2 % (42.0-54.0); HEMOGLOBIN 9.4 g/dL (13.5-17.5); IMMATURE GRANULOCYTES 0.1 % (0-5); LYMPHOCYTES 6.3 % (15-50); MCH 27.2 pg (26.0-34.0); MCHC 30.1 g/dL (31.0-37.0); MEAN PLATELET VOLUME 10.1 fL (7.4-10.4); MONOCYTES 13.7 % (2-11); NEUTROPHILS 75.1 % (40-80); RBC 3.45 10x6/uL (4.20-6.10); RDW 21.3 % (11.5-14.5); WBC 8.6 10x3/uL (4.8-10.8)
[2016-11-15 07:50] LABS: MCV 90.4 fL (80.0-100.0); PLATELET COUNT 100 10x3/uL (130-400)
[2016-11-15 08:04] VITALS: BP 213/110
--- NOTE | 2016-11-15 08:59 | NUR ---
ADMINSITERED AM MEDS. PT IN BED, DENIES ANY NEEDS AT THIS TIME. AT BEDSIDE, CONCERN ABOUT PT NOT BEING ON ASPIRIN, STATES THAT THE LABS KEEPS COMING TO DRAW PT BECAUSE HIS BLOOD KEEPS CLOTTING. STATES THAT PT WAS TAKING ASPIRIN BEFORE BEING ADMITTED TO HOSPITAL. WILL CALL INSURANCE ADMINISTRATIVE ASSISTANT WITH [employer] AND INFOMRED HER ABOUT 'S CONCERNS. CALL LIGHT IN REACH, NAD NOTED, WILL CONTINUE TO MONITOR.
--- NOTE | 2016-11-15 09:36 | NUR ---
Reviewed patient's chart this AM prior to transfer to the IRF. His systolic B/P has been greater than [address] Roa has made some medication adjustments to address. As soon as his B/P begins to trend down he can transfer to the IRF. Spoke to Whitney Mims RN flow cooridinator re this. Bia Abdullahi RN Clinical Liaison, rehab
--- NOTE | 2016-11-15 09:38 | NUR ---
CALLED KAYLENE SHOEMAKER, AND INFOMRED HER ABOUT 'S CONCERN ABOUT PT NOT BEING ON ASPIRIN AND LAB SAYING THAT HIS BLOOD KEEPS CLOTTING WHEN ITS BEIN DRAWN. KAYLENE SHOEMAKER STATED TO START THE ASPIRIN 81MG TO BE TAKEN DAILY.
[2016-11-15 10:01] VITALS: BP 165/77
--- NOTE | 2016-11-15 10:02 | NUR ---
RECHECKED BP ON RT ARM, 165/77.
--- NOTE | 2016-11-15 10:44 | NUR ---
ADMINSITERED 8MG OF ZOFRAN FOR C/O NUASEA. PT STATES HE IS NOT FEELING GOOD TODAY. PT AND FAMILY DENY ANY OTHER NEEDS AT THIS TIME. CALL LIGHT IN REACH, NAD NOTED, WILL CONTINUE TO MONITOR.
[2016-11-15 11:44] VITALS: BP 164/64
[2016-11-15] MEDS ORDERED: HYDRALAZINE HCL25 MG PO (12:00)
[2016-11-15] MEDS ORDERED: NORVASC2.5 MG PO (12:00)
[2016-11-15] MEDS ORDERED: LOPRESSOR25 MG PO (12:00)
[2016-11-15] MEDS ORDERED: APAP325 MG PO (12:01)
[2016-11-15] MEDS ORDERED: CELEXA10 MG PO (12:01)
[2016-11-15] MEDS ORDERED: PHOSLO667 MG PO (12:01)
[2016-11-15] MEDS ORDERED: NEPHRO-VITE RX1 TAB PO (12:02)
[2016-11-15] MEDS ORDERED: ROCALTROL0.25 MCG PO (12:02)
--- NOTE | 2016-11-15 12:55 | NUR ---
This patient is accepted to transfer to the IRF today. Called Whitney Mims RN with a room number. Bia Abdullahi RN CL
--- NOTE | 2016-11-15 14:06 | NUR ---
Recieved a call from the improvement coordinator Whitney Mims RN saying this patient's had stated she did not want her sent to rehab today because he did not feel well. I advised Whitney that he had been accepted and a room had been assigned. As long as the physician feels he is medically stable for discharge to rehab he will be accepted any time. Relayed this information to the Chetan Hung, Whitney Mims RN and Ginny Peck. Bia Abdullahi RN Clinical Liaison, Rehab
--- NOTE | 2016-11-15 14:41 | NUR ---
Rehab Note- Mrs. Fay just came down and stated that Mr Fay had worsened, was confused, disoriented and felt he needed to stay in the acute hospital at this time and see what Juan says about him in the morning. Will continue to follow the patient at this time. Message left on MEGAN Agosto voicemail at this time. Марина Kenyon RN Clinical Liaison, [facility] Rehab
--- NOTE | 2016-11-15 14:53 | NUR ---
CALLED KAYLENE COYNE RENAL FREEZING ROOM WORKER. AND INFOMRED HER THAT STATED TH AT PT IS NOT READY TO GO DOWN TO REHAB, BECAUSE HE HAS NOT BEEN FEELING WELL TODAY AND HE IS ACTING A LITTLE CONFUSED. KAYLENE COYNE STATED TO COLLECT U/A AND DO BLOOD CULTURE X1.
--- NOTE | 2016-11-15 15:16 | NUR ---
RECEIVED A MESSAGE FROM FLORA IN REHAB. SHE STATED THAT MRS LLAMAS HAD COME DOWN THERE AND TOLD THEM THAT THE PATIENT HAS TAKEN A TURN FOR THE WORSE AND SHE WANTED TO WAIT UNTIL DR ACEVEDO CAME IN TOMORROW TO SEE HIM BEFORE THEY MOVED THEM DOWN THERE.
--- NOTE | 2016-11-15 15:27 | NUR ---
Rehab Note- Received notifiaction to fax clinicals to Shaista Herrmann with [facility]. Clinicals faxed at this time to [phone]. Will await decision from [facility] of approval or denial of IRF stay, Will follow at this time. Марина Kenyon RN Clinical Liaison, [facility] Rehab
--- NOTE | 2016-11-15 15:40 | NUR ---
DRESSING CHANGE PROVIDE TO RT ELBOW, AND LT UPPER ARM, PT TOLERATED PROCEDURE WELL. PT DENIES ANY NEEDS AT THIS TIME. CALL LIGHT IN REACH, NAD NOTED, WILL CONTINUE TO MONTIOR.
[2016-11-15 16:00] VITALS: BP 163/54
[2016-11-15 17:35] LABS: APPEARANCE HAZY (CLEAR); BILIRUBIN NEGATIVE (NEGATIVE); COLOR YELLOW (YELLOW); GLUCOSE 250 mg/dL (NEGATIVE); KETONE NEGATIVE (NEGATIVE); LEUKOCYTE ESTERASE TRACE (NEGATIVE); NITRITE NEGATIVE (NEGATIVE); PROTEIN 2+ mg/dL (NEGATIVE); SPECIFIC GRAVITY 1.015 (1.005-1.020); UROBILINOGEN NORMAL (NORMAL)
[2016-11-15 17:36] LABS: BACTERIA MODERATE /hpf (NONE SEEN); EPITHELIAL CELLS 0-5 /hpf (0-5); YEAST >1+ /hpf (NONE SEEN)
--- NOTE | 2016-11-15 18:40 | NUR ---
PT'S CAME UP TO NURSES STATION AND STATED "I THINK HE HAD A STROKE BECAUSE HE IS ACTING REALLY STRANGE. I CANT UNDERSTAND WHAT HE IS SAYING, AND HE KEEPS SAYING RANDOM THINGS THAT DONT MAKE SENSE. CAN YOU CALL THE DOCTOR AND HAVE THEM ORDER A CT TO MAKE SURE OR HAVE DR. 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 LAST TIME THAT HE STOPPED TAKING HIS ASPIRIN, HE HAD A MINI STOKE". I WILL CONTACT THE DR. 1899- PAGED KAYLENE COYNE WITH [employer], WAITING ON HER TO CALL BACK. 1919- RECEIVE CALL BACK FROM KAYLENE COYNE. INFOMRED HER ABOUT 'S CONCERNS AND SHE STATED TO ORDER A HEAD CT WITHOUT CONTRAST.
[2016-11-15 19:00] VITALS: BP 128/82
--- NOTE | 2016-11-15 19:56 | NUR ---
SHIFT ROUNDS - PT IN BED WITH AT BEDSIDE. YELLOW BAND ON. 1ST STEP OVERLAY MATTRESS. BED IN LOWEST POSITION, CALL SALMERON IN USE/REACH, SIDE RAILS UP X2. PT IS VERY HARD OF HEARING. A&O. MONITOR SHOWING SR, HR 96. NO FUTHER NEEDS AT THIS TIME. WILL CONTINUE TO MONITOR
--- NOTE | 2016-11-15 22:21 | NUR ---
PT'S FAMILY CAME TO DESK STATING THAT PT IS SEEING PEOPLE IN THE ROOM THAT ARE NOT THERE AND RESTLESS. WENT AND ASSESSED PT. ASKED PT WHO ALL WAS IN THE ROOM AND WHEN HE NAMED SOMEONE NOT IN THE ROOM, I ASKED THE PT WHERE HE SAW THE PT AND TO POINT THEM OUT IN THE ROOM. PT STATED THAT SOMEONE WAS IN THE ROOM AND POINTED THEM OUT BUT NO ONE WAS STANDING THERE. CHARGE NURSE AND HOUSE SUPP NOTIFIED. HIEU SUPP IN ROOM WITH PT
--- NOTE | 2016-11-15 22:50 | NUR ---
KAYLENE COYNE WITH RENAL NOTIFIED ABOUT PT SEEING PEOPLE THAT ARE NOT THERE. NEW ORDERS.
[2016-11-16] VITALS: BP 176/53
--- NOTE | 2016-11-16 01:02 | NUR ---
CALL LIGHT IN REACH, WILL CONTINUE WITH PLAN OF CARE.
[2016-11-16 04:00] VITALS: BP 173/75
--- NOTE | 2016-11-16 07:45 | NUR ---
UPON SEEING PT NOTICED PT IS NOT DOING VERY WELL. PT LOOKS MUCH WEAKER THAN EARLIER IN THE WEEK WHEN SHERIN HAD HIM AND HIS STATES HE HAS NOT BEEN DOING GOOD. PT IS ALERT TO [facility] AND SELF BUT DID NOT RECOGNIZE ME WHEN SHERIN BEEN HIS NURSE MANY TIMES AND HE IS USUALLY VERY DELIGHTED TO SEE ME. PT STATES HE HAS BEEN HAVING SOME HALLUCINATIONS BUT HE CANT RECALL WHAT THEY ARE. RR ARE SHALLOW BUT EVEN. R.SIDE OF CHEST STILL DISTENDED WITH BONE BEING VERY PROMINENT ON RIGHT SIDE ONLY. PTS R.ELBOW DRSG IS OFF AND DUTY MANAGER, PTS STATES TOOK IT OFF TO LOOK AT IT, I ASKED PT BUT HE DOESNT EVEN RECALL HIM COMING IN THERE. WILL REDRESS IT PER WOUND CARE ORDERS HOWEVER SITE LOOKS LIKE ITS IMPROVING GREATLY COMPARED TO EARLIER IN THE WEEK WHEN SHERIN BEEN TAKING CARE OF IT. BILAT ARMS ARE STILL THIN FRAGILE SKIN HOWEVER LESS SKIN TEARS AND THEY SEEM TO BE HEALED UP AND CLOSED EXCEPT ONE ON HIS L.ARM. PT HAS HIS R.UPPER ARM PIV STILL SL AND WILL RECIEVE IV ANBX LATER. WILL PULL MORNING MEDS AND CHART CHECK AND CTM CLOSELY. AT BEDSIDE AND JUST CONCERNED FOR PT. WILL CPOC.
[2016-11-16 08:00] VITALS: BP 196/60
--- NOTE | 2016-11-16 10:22 | NUR ---
Recieved a call from [facility] at [facility]. She has recieved the clinicals for this patient, but still needs an OT eval prior to submitting info to the medical office secretary. Called and relayed this information to the Triny Guerrero RN. Also called and spoke to Anthony in PT and made her aware of the need for an OT eval YOUSIF for this patient. Bia Abdullahi RN Clinical Liaison, Rehab
--- NOTE | 2016-11-16 10:25 | NUR ---
DIALYSIS CALLED FOR PT. PT BEING TRANSPORTED DOWN TO DIALYSIS AT THIS TIME. WILL CTM CLOSELY.
--- NOTE | 2016-11-16 14:00 | NUR ---
Rehab Note- OT eval completed & faxed to Alejandra at this time [phone]. Awaiting denial or approval at this time. Марина Kenyon RN Clinical Liaison, [facility] Rehab
--- NOTE | 2016-11-16 14:01 | NUR ---
ADDENDUM: OT NOTE: VISITED PT IN DIALYSIS. PT WAS ALERT TO NAME AND PLACE. TESTED AROM WHICH WAS WFLS; STRENGTH WAS 3+/5 GROSSLY TESTED. UNABLE TO PERFORM BED MOB DUE TO DIALYSIS, BUT I SUSPECT THAT HE WOULD REQUIRE EXTENSIVE ASSIST DUE TO OVERALL WEAKNESS. PT PRESENTED WITH DECREASED PHARMACOLOGY PROFESSOR STRENGTH AND DECREASED FINE MOTOR COORDINATION, MAKING ADLS MORE DIFFICULT TO PERFORM INDEP. PT WILL DEFINITELY BENEFIT FROM CONTINUED THERAPY. PT IS A GOOD CANDIDATE FOR IN PT REHAB PLACEMENT. THANK YOU FOR REFERAL, FIDELINA YOUNG , OTR/L
--- NOTE | 2016-11-16 14:45 | NUR ---
PT BACK FROM DIALYSIS RR NONLABORED. VSS. PT STATES HE DID OKAY BUT HE IS VERY TIRED AND WOULD LIKE TO CONTINUE RESTING. FAMILY ALL AT BEDSIDE. NO CURRENT NEEDS AT THIS TIME, CAREGIVER GOING TO TRY AND GET PT TO EAT. WILL CTM.
--- NOTE | 2016-11-16 15:07 | NUR ---
Nutrition Follow Up: Pt was unavailable at the time of RD visit. Interview deferred. Pt is eating 25% meal avg on a Renal ADA diet. He is receiving Nepro TID. +BM 11/13/16. No new wt to assess. Labs reviewed - Glucose elevated. Meds reviewed - noted Warren has been d/c. Rec continue current diet. Will continue to send Nepro TID. RD will continue to monitor pt progress.
--- NOTE | 2016-11-16 15:51 | NUR ---
RECEIVED A CALL FROM [facility] ABOUT THE DENIAL FOR ACUTE REHAB FROM THE INSURANCE AGENCY. SHE STATED THAT THE INSURANCE COMPANY IS NOT GOING TO SEND A DENIAL ON THE PATIENT, BUT STATED WE COULD DO A P2P WITH [facility] AT [phone] AND IT NEEDS TO BE DONE BEFORE 1500 ON SATURDAY. CALL WAS PLACED TO DR CRUZ (PROGRAM DIRECTOR/AIR PERSONALITY FOR RENAL), EXPLAINED THE SITUTATION TO HIM AND ASKED HIM ABOUT DOING A P2P. HE STATED THAT HE KNOWS NOTHING ABOUT THE PATIENT AND WOULD PREFER THAT WE WAIT UNTIL SATURDAY AND ASK DR ACEVEDO IF HE WOULD BE WILLING TO DO A P2P. THIS INFORMATION WAS RELAYED TO PELON IN REHAB.
[2016-11-16 16:00] VITALS: BP 182/69
--- NOTE | 2016-11-16 16:00 | NUR ---
Rehab Note- Received phone call from [facility] with [facility] about denial of IRF stay. Asked to fax denial letter, stated that they don't do that till after a peer to peer has been done. Informed MEGAN Agosto via phone that a peer to peer can be set up by contacting [facility] with [facility] at [phone] prior to Saturday11/19/16 at 1500. MEGAN Agosto stated she would do what she could do on setting the peer to peer up. Thank you for this referral! Марина Kenyon RN Clinical Liaison, [facility] Rehab
--- NOTE | 2016-11-16 16:45 | NUR ---
ASSISTED PT OFF OF BEDPAN PT UNABLE TO HAVE A BM. PTS BOTTOM IS VERY EXCORIATED AND RED. APPLIED NOA TO HELP HEAL. GROIN ALSO VERY REDDENED AND RAW SO I CLEANSED AREA WITH SOAP AND WATER THEN PATTED DRY AND APPLIED BABY POWDER AND APPLIED PILLOW CASES BETWEEN GROIN FOLDS TO PROVIDE A BARRIER. PT VOICED THANKS AND DENIES ANY CURRENT NEEDS. CL IN REACH. WILL CTM.
--- NOTE | 2016-11-16 17:38 | NUR ---
R.THIGH HEMESPLIT DRSG CHANGED PER PROTOCOL TO BE CHANGED WEEKLY. CHANGED USING STERILE TECHNIQUE. PT RESTING IN BED ATTEMPTING TO EAT DINNER, CAREGIVER AT BEDSIDE NO FURTHER NEEDS AT THIS TIME. WILL CTM.
[2016-11-16 19:00] VITALS: BP 169/71
--- NOTE | 2016-11-16 21:50 | NUR ---
NO INSULIN ADMINISTERED INCORRECT ONE, REGULAR INSULIN NOT AVAILABLE FOR SLIDING SCALE, PT HAS DECREASED APPETITE, DID HAVE PT DRINK APPROX 3 OZ OF NEPRO.
[2016-11-17] VITALS: BP 180/46
--- NOTE | 2016-11-17 00:10 | NUR ---
PT RESTING QUIETLY, NO S/S OF ACUTE DISTRESS. RESPONDS TO QUESTIONS, DIFFICULT TO UNDERSTAND AT TIMES VOICE IS SOFT.
--- NOTE | 2016-11-17 03:09 | NUR ---
PT RESTING QUIETLY, SON IN ROOM. RESPIRATIONS REGULAR AND UNLABORED,
[2016-11-17 04:00] VITALS: BP 159/65
--- NOTE | 2016-11-17 04:15 | NUR ---
PT ATTEMPTING TO COMMUNICATE VIA STATING OF LETTERS WHICH DIDN'T SPELL A WORD, PT WAS INCONTINENT OF STOOL, CLEANED, BUTTOCK AND GROIN EXCORIATION, BUTT PASTE APPLIED, REPOSITIONED IN BED, OFFERED FLUIDS AND PT DRANK, ONE CAN OF NEPRO HAS ALMOST BEEN CONSUMED. POSITIONED PT, PT STATES HE FEELS COMFORTABLE BY RESPONDING WITH YES. PT DENIED DRINK OF WATER BY RESPONDING NO.
[2016-11-17 05:23] LABS: ANION GAP 13.9 mmol/L (8-16); CALCIUM 9.4 mg/dL (8.5-10.1); CARBON DIOXIDE 25.4 mmol/L (21.0-32.0); CREATININE - SERUM 3.3 mg/dL (0.6-1.3)
[2016-11-17 05:32] LABS: EOSINOPHILS 1.8 % (0-7); HEMATOCRIT 28.3 % (42.0-54.0); IMMATURE GRANULOCYTES 1.8 % (0-5); LYMPHOCYTES 6.8 % (15-50); MCH 23.1 pg (26.0-34.0); MCHC 25.1 g/dL (31.0-37.0); MCV 92.2 fL (80.0-100.0); NEUTROPHILS 75.6 % (40-80); RBC 3.07 10x6/uL (4.20-6.10); RDW 21.1 % (11.5-14.5)
[2016-11-17 05:33] LABS: WBC 11.4 10x3/uL (4.8-10.8)
[2016-11-17 05:34] LABS: POTASSIUM - SERUM 5.3 mmol/L (3.5-5.1)
[2016-11-17 05:34] LABS: HEMOGLOBIN 7.1 g/dL (13.5-17.5); PLATELET COUNT 129 10x3/uL (130-400)
--- NOTE | 2016-11-17 06:50 | NUR ---
SPOUSE PRESENT, PT ALERT, MEDICATION INFUSING VIA IV.
[2016-11-17 08:00] VITALS: BP 160/45
--- NOTE | 2016-11-17 08:22 | NUR ---
ASSESSMENT DONE. DENIES NEEDS.
--- NOTE | 2016-11-17 10:18 | NUR ---
RESP UL ON . FAMILY AT BS. CALL LIGHT IN REACH. WILL CONT. PLAN OF CARE.
[2016-11-17 10:53] LABS: BASOPHILS 0.2 % (0-2); EOSINOPHILS 1.5 % (0-7); HEMATOCRIT 30.6 % (42.0-54.0); HEMOGLOBIN 8.9 g/dL (13.5-17.5); IMMATURE GRANULOCYTES 0.4 % (0-5); LYMPHOCYTES 4.4 % (15-50); MCHC 29.1 g/dL (31.0-37.0); MCV 92.7 fL (80.0-100.0); MEAN PLATELET VOLUME 10.4 fL (7.4-10.4); MONOCYTES 11.5 % (2-11); PLATELET COUNT 149 10x3/uL (130-400); RDW 20.8 % (11.5-14.5); WBC 10.1 10x3/uL (4.8-10.8)
[2016-11-17 12:00] VITALS: BP 125/32
[2016-11-17 16:00] VITALS: BP 157/62
--- NOTE | 2016-11-17 17:45 | NUR ---
WITHOUT CHANGES OR DISTRESS NOTED AT THIS TIME. DENIES NEEDS. FAMILY AT SIDE.
[2016-11-17 19:00] VITALS: BP 161/71
--- NOTE | 2016-11-17 19:50 | NUR ---
PT IN ROOM WITH AND SON. DOING ORAL CARE. LEFT ARM RESERVED. IV TO RIGHT UPPER ARM SALINE LOCKED, HEMOSPLIT TO RIGHT THEIGH. PT ON 1ST STEP MATTRESS. NO DISTRESS NOTED AT THIS TIME. WILL MONITOR.
[2016-11-18] VITALS (7 sets, daily range): BP systolic 109–149; BP diastolic 33–80
--- NOTE | 2016-11-18 16:40 | NUR ---
LETHARGIC. AROUSES TO STIMULI. FAMILY AT BEDSIDE. REFUSE TO EAT AND DRINK. DISCUSSES DNR WITH . CODE STATUS CHANGED TO DNR. CODE PAPER SIGNED ON CHART. LT ELBOW DRESSING CHANGED ORDERED. DENIES ANY NEEDS. BED LOCKED AND AND LOW. CALL LIGHT IN REACH. TWO SIDERAILS UP.
--- NOTE | 2016-11-18 19:56 | NUR ---
RESUMED CARE OF PT, LYING IN BED RESPIRATIONS EVEN AND UNLABORED ON 2LPM VIA NC. 73 SR ON TELEMETRY. FAMILY AT BEDSIDE, PLAN OF CARE DISCUSSED. 1ST STEP OVERLAY INFLATED. NO NEEDS VOICED AT THIS TIME. CALL LIGHT IN REACH. WILL CONTINUE TO MONITOR. SEE NURSE ASSESSMENT.
[2016-11-19 04:00] VITALS: BP 134/51
--- NOTE | 2016-11-19 06:18 | DS ---
PATIENT:DEVAUGHN FAY :33 MEDICAL RECORD: [id number] DISCHARGE SUMMARY ADMISSION DATE: 11/01/16 DISCHARGE DATE: HOSPITAL COURSE: Mr. Fay is an 81-year-old white male who was admitted with an elbow abscess that was a gram-positive and had I&D by Dr. Waggoner and antibiotic coverage. He was sent to rehab where his renal function continued deterioration along with shortness of breath and edema, transferred back to the acute unit where he had placement of a groin dialysis catheter by Dr. Tyler and subsequently was begun on chronic hemodialysis. During this time, he has had progressive weakness. His TSH was elevated. His thyroid was increased. His meds were reduced, and he is now scheduled for return to rehab and continuation of his regular dialysis schedule. He had no other major intercurrent problems during his acute stay. His elbow remains open per orthopedics and his groin catheter we will use until his open wound has healed by secondary intention. DISCHARGE DIAGNOSES: 1. Chronic renal failure, now with end-stage renal disease. 2. Status post incision and drainage of right elbow abscess. 3. Hypertension. 4. History of syncope. 5. Chronic anemia. PLAN: The patient will be transferred to Rehab. He will continue his current meds and diet. He will have PT and rehab and continue his dialysis schedule there. We will continue to see him on an intermittent basis in rehab. TRANSINT:[id number] Voice Confirmation ID: [id number] DOCUMENT ID: [id number] CAROL ACEVEDO MD at 0618 CC: [id number] DICTATION DATE: 11/15/16 0735 WARHEAD MAINTENANCE SPECIALIST: 11/16/16 0157 ADM IN [place] [id number] [place] [id number]
--- NOTE | 2016-11-19 06:42 | NUR ---
SPOKE WITH DR ACEVEDO ABOUT DOING THE P2P SECONDARY TO INSURANCE COMPANY DENYING ANOTHER ATTEMPT TO MOVE PATIENT TO REHAB. PER DR ACEVEDO, THIS WAS NOT AN OPTION SECONDARY TO CONSULTING HOSPICE ON THE PATIENT TODAY.
[2016-11-19 08:22] VITALS: BP 130/35
--- NOTE | 2016-11-19 09:59 | NUR ---
Rehab Note- Received message from MEGAN Agosto and reviewed Dr Roa's note concerning Hospice eval. Thank you for this referral! Марина Kenyon RN Clinical Liaison, [facility] Rehab
--- NOTE | 2016-11-19 10:52 | NUR ---
Patient Name: DEVAUGHN LLAMAS Encounter No: [id number] : 1935 Primary Insurance: [id number] Anticipated DC Date: 11-19-2016 Planned Disposition: Hospice Medical Facility External Planned Provider: [facility] OR [facility] DCP follow-up note: CM RECEIVED HOSPICE ORDER, MET WITH PT AND SPOUSE IN ROOM. PT SLEEPING THROUGHOUT MEETING. CM DISCUSSED HOSPICE ORDER, HOSPICE PROVIDERS AND HOSPICE LOCATIONS; CM PROVIDED HOSPICE LISTING OF AGENCIES. PT'S SPOUSE WOULD LIKE TO SPEAK TO [facility] AND [facility] AND WILL MAKE DECISION FROM THERE. IMPORTANT MESSAGE FROM MEDICARE PROVIDED AND EXPLAINED. CM CALLED [facility], , PROVIDED REFERRAL FOR THERESE AND FAXED REFERRAL TO [phone]. [facility] TO EVALUATE PT AND MEET WITH PT/SPOUSE AT 1100 TODAY. CM CALLED [facility], , PROVIDED REFERRAL TO [facility], FAXED REFERRAL TO [phone], [facility] TO EVALUATE PT AND MEET WITH PT/SPOUSE AT 1030 TODAY. CM WAITING HOSPICE DECISION FROM PT/SPOUSE. Maik Hung, CASE MANAGEMENT
--- NOTE | 2016-11-19 11:53 | NUR ---
SLEEPING IN BED. FAMILY AT BEDSIDE. HARD TO AROUSE. BP DROP FROM 133/35 AT 8am TO 55/19 NOW. P-56, R-8, O2-88% WITH 2L NC. INCREASE OXYGEN TO 4L. LABORED RESPIRATIONS AT 8. HOSPICE CONSULT AT BEDSIDE. WAITING FOR HOSPICE NURSE TO ARRIVE TO [facility]PROVE FOR INPATIENT HOSPICE. PAGE KAYLENE, RENAL MUSIC TYPOGRAPHER FOR COMFORT MEASURE MEDICATIONS UNTIL ADMITTED TO HOSPICE. 1-2mg MORPHINE IV Q1HPRN AND ATROPINE DROPS SUBLINGUAL Q2HPRN FOR SECRETIONS ORDERED PER KAYLENE. CONTINUE TO MONITOR. CONTINUE SAFETY PRECAUTIONS.
--- NOTE | 2016-11-19 13:50 | NUR ---
DISCHARGE PATIENT TO INPATIENT HOSPICE ORDERED.
[2016-11-21 17:13] LABS: AEROBE ID Preliminary report (()); RESULT 1 Gram negative rods (())
== END 2016-11-19 13:50 | disposition hospice, inpatient (51) | DRG 314 ==
LOC: D.M2 12:56 → OBSVTIME 12:57 → D.M2 11-01 11:51
PROVIDERS: Internal Medicine; Internal Medicine Nephrology; ADMIT Internal Medicine Nephrology
PROC: 06HM33Z Insertion of Infusion Device into Right Femoral Vein, Percutaneous Approach (ICD-10-PCS; principal; 2016-10-31)
PROC: B54BZZA Ultrasonography of Right Lower Extremity Veins, Guidance (ICD-10-PCS; 2016-10-31)
PROC: 5A1D60Z (ICD-10-PCS; 2016-11-01)
PROC: 06PY33Z Removal of Infusion Device from Lower Vein, Percutaneous Approach (ICD-10-PCS; 2016-11-05)
PROC: 06HM33Z Insertion of Infusion Device into Right Femoral Vein, Percutaneous Approach (ICD-10-PCS; 2016-11-05)
PROC: B54BZZA Ultrasonography of Right Lower Extremity Veins, Guidance (ICD-10-PCS; 2016-11-05)
DX: T82.49XA Other complication of vascular dialysis catheter, initial encounter (principal); N18.6 End stage renal disease; I12.0 Hypertensive chronic kidney disease with stage 5 chronic kidney disease or end stage renal disease; B37.49 Other urogenital candidiasis; Z99.2 Dependence on renal dialysis; K80.20 Calculus of gallbladder without cholecystitis without obstruction; I25.10 Atherosclerotic heart disease of native coronary artery without angina pectoris; D63.1 Anemia in chronic kidney disease; F32.9 Major depressive disorder, single episode, unspecified; E83.39 Other disorders of phosphorus metabolism; M71.121 Other infective bursitis, right elbow; R91.8 Other nonspecific abnormal finding of lung field; Z66 Do not resuscitate; G31.9 Degenerative disease of nervous system, unspecified; Y83.8 Other surgical procedures as the cause of abnormal reaction of the patient, or of later complication, without mention of misadventure at the time of the procedure

== ENCOUNTER 2016-11-19 14:44 | Inpatient (IN) | payer OTHER ==
[~2016-11-19] VITALS: Ht 172.7 cm; Wt 68.2 kg
[~2016-11-19 14:44] MED LIST changes: +APAP325 MG PO; +CELEXA10 MG PO; +LOPRESSOR25 MG PO; +MELATONIN 3 MG1 TAB PO; +NEPHRO-VITE RX1 TAB PO; +NORVASC2.5 MG PO; +PHOSLO667 MG PO
[2016-11-19 15:51] VITALS: BP 50/19; Ht 172.7 cm; Wt 68.2 kg
--- NOTE | 2016-11-19 16:07 | NUR ---
NOTIFY HOSPICE NURSE OF ABSENT PULSE AND NO RESPIRATIONS.
--- NOTE | 2016-11-19 18:48 | NUR ---
CONSTRUCTION CONSULTANT ÁLVARO NOTIFIED. WAITING FOR [facility] TO ARRIVE TO TRANSPORT BODY.
== END 2016-11-19 19:30 | DRG 951 ==
LOC: D.M2 14:44
PROVIDERS: ADMIT Legal Medicine
DX: Z51.5 Encounter for palliative care (principal)